=== PATIENT | female | born 1970 | race Caucasian/White ===

== ENCOUNTER 2021-04-20 08:04 | Outpatient (REF) | payer BC, SELFPAY ==
[2021-04-20 09:13] LABS: Estimated Average Glucose 108 mg/dL; Hemoglobin A1c % 5.4 %
[2021-04-20 09:22] LABS: Alanine Aminotransferase 14 U/L (0-31); Albumin Level 4.2 g/dL (3.5-5.0); Alkaline Phosphatase 58 U/L (39-117); Anion Gap 12 (12-20); Aspartate Amino Transferase 17 U/L (5-31); Bilirubin Total 1.7 mg/dL (0.0-1.0); Blood Urea Nitrogen 12 mg/dL (9-16); Calcium 9.6 mg/dL (8.4-10.2); Carbon Dioxide 27 mmol/L (22-29); Chloride 106 mmol/L (96-108); Cholesterol 199 mg/dL; Estimated Glomerular Filt Rate > 60; Glucose Fasting 101 mg/dL (60-99); HDL Cholesterol 64 mg/dL; LDL Cholesterol Calculated 119 mg/dl; Potassium 4.5 mmol/L (3.3-5.1); Sodium 140 mmol/L (135-145); Total Protein 6.7 g/dL (6.5-8.0); Triglycerides 80 mg/dL
[2021-04-20 09:32] LABS: TSH reflex Free T4 1.93 uIU/mL (0.32-4.0)
== END 2021-04-20 08:05 | disposition home or self-care (01) ==
LOC: HO.LAB 08:04
PROVIDERS: PCP Physician Assistant; Visit Provider Physician Assistant
DX: Z13.1 Encounter for screening for diabetes mellitus (principal); Z13.220 Encounter for screening for lipoid disorders; Z13.29 Encounter for screening for other suspected endocrine disorder
CPT/HCPCS: 36415; 80053; 80061; 83036; 84443

== ENCOUNTER → 2021-05-03 08:28 | Outpatient (BNVA) | payer BC, SELFPAY | PROVIDERS: PCP Physician Assistant; Referring Provider Physician Assistant; Visit Provider Physician Assistant ==

== ENCOUNTER 2021-06-14 09:20 | Day surgery (SDC) | payer BC, SELFPAY ==
[2021-06-07 15:10] VITALS: BMI 38.4
--- NOTE | 2021-06-10 14:45 | P.CONAN_ITS ---
Documented by User: Clarissa Driver NP 06/10/21 14:45 HPI - Anesthesia Eval Consult details Narrative: 50yo F for Colonoscopy PMFSH Active Problems Active Problems: All Active Problems (Updated 06/07/21 @ 14:53 by Mary Akins, MANDA) Moderate persistent asthma (Acute) Annual physical exam (Acute) Obese (Acute) Colon cancer screening (Acute) Cervical cancer screening (Acute) Screening for hypercholesterolemia (Acute) Screening for hypothyroidism (Acute) Screening for diabetes mellitus (DM) (Acute) Past Medical History Medical History Asthma Family History Family History Father Hairy cell leukemia Surgical History Surgical History (Updated 06/14/21 @ 09:30 by Umm Nunez RN) Previous section S/P cholecystectomy Social History Social History (Updated 05/03/21 @ 08:58 by Hemalatha Kaba PA-C) Household Members: Spouse and Children Housing: House Are you a primary respiratory care assistant to a significant other at home: No Do you presently have visiting nurse or other home services: No Alcohol intake: current Alcohol intake frequency: 3 or more drinks per day Alcohol type: wine Patient Tobacco Use Status: Never used Tobacco e-Cigarette/Vaping Use: Never Used Second Hand Smoke Exposure: No Use of substances other than those prescribed or required for medical reasons: No Have you been hit, kicked, punched, or otherwise hurt by someone within the past year? If so, by whom?: No Are you DNR?: No Advance Directives: No Advance Directives Information Provided: No Advance Directives on File: No Recently lost weight without trying: No Eating poorly because of decreased appetite: No Nutrition Risks: No Nutritional Risk Patient : No service: No Current occupational status: employed Current occupation: [employer] Meds Allergies Allergy/AdvReac Type Severity Reaction Status Date / Time No Known Allergies Allergy Verified 06/14/21 09:30 Exam Exam Date and Time: June 10, 2021 1445 Height,Weight and Vital Signs: Height 5 ft 4 in Weight 101.605 kg Assessment and Plan Assessment Anesthesia Assessment: Chart Reviewed Documented by User: Mackenzie Fajardo MD 06/14/21 09:38 [facility] Past Medical History Medical History Asthma Family History Family History Father Hairy cell leukemia Family history of problems with anesthesia: No Surgical History Surgical History (Updated 06/14/21 @ 09:30 by Umm Nunez RN) Previous section S/P cholecystectomy History of Problems with Anesthesia: No Social History Social History (Updated 05/03/21 @ 08:58 by Hemalatha Kaba PA-C) Household Members: Spouse and Children Housing: House Are you a primary respiratory care assistant to a significant other at home: No Do you presently have visiting nurse or other home services: No Alcohol intake: current Alcohol intake frequency: 3 or more drinks per day Alcohol type: wine Patient Tobacco Use Status: Never used Tobacco e-Cigarette/Vaping Use: Never Used Second Hand Smoke Exposure: No Use of substances other than those prescribed or required for medical reasons: No Have you been hit, kicked, punched, or otherwise hurt by someone within the past year? If so, by whom?: No Are you DNR?: No Advance Directives: No Advance Directives Information Provided: No Advance Directives on File: No Recently lost weight without trying: No Eating poorly because of decreased appetite: No Nutrition Risks: No Nutritional Risk Patient : No service: No Current occupational status: employed Current occupation: [employer] Meds Allergies Allergy/AdvReac Type Severity Reaction Status Date / Time No Known Allergies Allergy Verified 06/14/21 09:30 Exam Airway Mallampati Class: II (Caps laterally) TM Dist: >3cm Neck ROM: Full Heart: rrr Lungs: cta Assessment and Plan Assessment Anesthesia Assessment: Anesthesia Plan Discussed and Chart Reviewed Final Anesthetic Review Family History of Problems with Anesthesia: No History of Problems with Anesthesia: No NPO: Yes ASA Class: III Final Preanesthetic Review: No Changes in Pt Med Stat and Consent Obtained/Reviewed Patient Risk: Intermediate Procedure Risk: Intermediate Anesthetic Plan Anesthetic Plan: MAC: Disposition: Standard PACU
[2021-06-14 09:32] VITALS: BP 147/87; PULSE 89; RESP 16; TEMP 36.8; O2SAT 95
[2021-06-14] MEDS: Lactated Ringers 1,000 ML 100 ML IVCONT (09:44)
--- NOTE | 2021-06-14 09:48 | MHC.SHP ---
Pre-Procedural Eval Section A Date of Service: 06/14/21 The patient is an INPATIENT: No The History & Physical has been completed within 30 days and I have reviewed it.: No Section B Chief Complaint: screening Details of Present Illness: Colon cancer screening Relevant Family History (Specify if Yes): No Relevant Social History: None Present Medications: see Short Stay Collaborative assessment Medical History: Significant History (asthma) History of Previous Operations: Relevant previous surgery/procedure and date(s) (S/P cholecystectomy) Allergies: Allergies Allergy/AdvReac Type Severity Reaction Status Date / Time No Known Allergies Allergy Verified 06/14/21 09:30 Review of Systems Sugical H&P ROS: Negative: Constitution, Cardiovascular, Respiratory and Gastrointestinal Exam Surgical H&P Exam: Normal: Heart, Normal: Lungs, Normal: Extremities and Normal: Abdomen Plan Diagnosis/Plan: Unchanged I have reviewed the history and physical and performed a pertinent physical examination on my patient. No changes have occurred unless specified.
--- NOTE | 2021-06-14 09:55 | W.PM.OPN ---
Operative Note Operative Note Date of Service: 06/14/21 Narrative: Pre-op diagnosis:?Colon cancer screening Post-op diagnosis:?other (Diverticulosis, hemorrhoids) Procedure:? COLONOSCOPY TILL CECUM Consent: Indications for the procedure and potential complications of bleeding, perforation, reaction to medications and missed diagnosis were discussed with the patient and informed consent was obtained. Instrument: Olympus PCF H 190 L variable stiffness pediatric colonoscope Monitoring: Vital signs and clinical assessment, intermittent blood pressure monitoring, continuous EKG monitoring, Pulse oximetry and Carbon Dioxide monitoring were done throughout the procedure. Colon withdrawl time was 16 minutes. Procedure: The patient was placed in the left lateral decubitis position and pre-procedure medications were administered. After a digital rectal examination of the ano-rectum, the video colonoscope was inserted into the rectum and advanced through the colon to the cecum. The colonoscope was slowly withdrawn in a retrograde panoramic fashion and the colon mucosa was carefully examined including a retroflexed view of the rectum. Findings and interventions are described below. Procedure Difficulty: ? Colon was long and tortuous and there was recurrent loop formation - no manuvers were required Findings: Terminal Ileum: Not evaluated Cecum:? Normal Ascending Colon:? Normal Transverse Colon:? Normal Descending Colon:? Normal Sigmoid Colon:? Moderate diverticulosis Rectum:? Normal Ano-rectum:? Small internal hemorrhoids Colon preparation: Excellent ? Impression and Post Procedure Diagnosis: Colonoscopy Findings: No polyps were detected. Moderate diverticulosis seen in the sigmoid colon Small hemorrhoids on retroflexed exam. Plan: Patient has an appointment on 07/07/21 in the GI Clinic with SHARRI Cain to cancel. Repeat Colonoscopy in 10 years (earlier if pt has abdominal pain, change in bowel habits, anemia, rectal bleeding or new family hx of colon polyps or cancer). Above findings were reviewed with the patient and diverticulosis handout was given in the discharge area Surgeon:?Shira Rice MD Anesthesia:?MAC (Almita Jimenez CRNA) Was an Employment Appeals Examiner used for this Procedure?:?Yes Employment Appeals Examiner:?Price Flores Estimated blood loss (mL):?0 Pathology:?none sent Condition:?stable Disposition:?PACU
[2021-06-14 10:30] VITALS: BP 124/81; PULSE 97; RESP 21; TEMP 36.7; O2SAT 98
[2021-06-14 10:45] VITALS: BP 119/84; PULSE 87; RESP 18; TEMP 36.8; O2SAT 98
== END 2021-06-14 11:20 | disposition home or self-care (01) ==
PROVIDERS: PCP Physician Assistant; Visit Provider Internal Medicine Gastroenterology
PROC: 0DJD8ZZ Inspection of Lower Intestinal Tract, Via Natural or Artificial Opening Endoscopic (ICD-10-PCS; CPT 45378; principal; 2021-06-14 10:50)
DX: Z12.11 Encounter for screening for malignant neoplasm of colon (principal); K57.30 Diverticulosis of large intestine without perforation or abscess without bleeding; K64.8 Other hemorrhoids; J45.40 Moderate persistent asthma, uncomplicated; Z79.899 Other long term (current) drug therapy; Z90.49 Acquired absence of other specified parts of digestive tract
CPT/HCPCS: 45378

== ENCOUNTER 2021-09-01 13:36 | Outpatient (REF) | payer BC, SELFPAY ==
[2021-09-06 19:46] LABS: HPV mRNA E6/E7 rflx Not Detected (Not Detected)
== END 2021-09-01 13:37 | disposition home or self-care (01) ==
LOC: HO.LAB 13:36
PROVIDERS: PCP Physician Assistant; Visit Provider Advanced Practice Midwife
DX: Z01.419 Encounter for gynecological examination (general) (routine) without abnormal findings (principal); R32 Unspecified urinary incontinence
CPT/HCPCS: 87624; 88142

== ENCOUNTER 2021-09-11 07:58 | Outpatient (REF) | payer BC, SELFPAY ==
--- NOTE | ~2021-09-11 | MM_ITS ---
EXAMINATION: MM SCREENING DIGITAL BREAST TOMOSYNTHESIS, BILATERAL CLINICAL INFORMATION: Screening. Asymptomatic. The lifetime risk of breast cancer based on the Tyrer-Cuzick Model is 7%. COMPARISON: Outside mammography: 09/02/2019, 08/31/2018 ([facility]) TECHNIQUE: Digital breast tomosynthesis is performed in both the craniocaudal and mediolateral oblique views along with computer-aided detection (CAD). Synthesized 2D images are generated from the tomosynthesis. FINDINGS: There are scattered areas of fibroglandular density (ACR BI-RADS breast composition Category b). There are no significant masses, abnormal calcifications, or other abnormalities. Parenchymal pattern is similar to prior outside studies. There is no developing density or interval architectural abnormality. The axilla and skin contours are unremarkable. MM/MM tomosynthesis screening BI IMPRESSION: No mammographic evidence of malignancy. ASSESSMENT: BI-RADS 1: Negative RECOMMENDATION: Routine annual mammography screening. This patient's information was entered into a reminder system with a target due date for their next mammogram.
== END 2021-09-11 07:59 | disposition home or self-care (01) ==
LOC: HO.MAMMO 07:58
PROVIDERS: PCP Physician Assistant; Visit Provider Advanced Practice Midwife
DX: Z12.31 Encounter for screening mammogram for malignant neoplasm of breast (principal)
CPT/HCPCS: 77063; 77067

== ENCOUNTER 2021-10-05 10:16 | Outpatient (REF) | payer BC, SELFPAY | END 2021-10-05 10:17 | disposition home or self-care (01) | LOC: HO.LAB 10:16 | PROVIDERS: PCP Physician Assistant; Visit Provider Obstetrics & Gynecology | DX: N88.9 Noninflammatory disorder of cervix uteri, unspecified (principal) | CPT/HCPCS: 57454; 88305 ==

== ENCOUNTER → 2021-10-19 11:25 | Outpatient (BNVA) | payer BC, SELFPAY | PROVIDERS: Visit Provider Obstetrics & Gynecology | DX: N88.9 Noninflammatory disorder of cervix uteri, unspecified (principal) | CPT/HCPCS: Q3014 ==

== ENCOUNTER → 2022-09-06 08:02 | Outpatient (BNVA) | payer BC, SELFPAY | PROVIDERS: PCP Physician Assistant; Visit Provider Advanced Practice Midwife | DX: Z13.89 Encounter for screening for other disorder (principal) ==

== ENCOUNTER 2022-09-26 15:01 | Outpatient (REF) | payer BC, SELFPAY ==
[2022-09-27 12:52] LABS: Influenza A PCR NEGATIVE (Negative); Influenza B PCR NEGATIVE (Negative); Resp Syncy Virus RNA Qual PCR NEGATIVE (Negative); SARS COV2 PCR INHOUSE NEGATIVE (Negative)
== END 2022-09-26 15:02 | disposition home or self-care (01) ==
LOC: HO.LAB 15:01
PROVIDERS: Visit Provider Nurse Practitioner Family
DX: Z20.822 Contact with and (suspected) exposure to COVID-19 (principal); R09.89 Other specified symptoms and signs involving the circulatory and respiratory systems
CPT/HCPCS: 0241U

== ENCOUNTER 2022-10-05 08:11 | Outpatient (REF) | payer BC, SELFPAY ==
--- NOTE | ~2022-10-05 | MM_ITS ---
EXAMINATION: MM SCREENING DIGITAL BREAST TOMOSYNTHESIS, BILATERAL CLINICAL INFORMATION: Screening. Asymptomatic. The lifetime risk of breast cancer based on the Tyrer-Cuzick Model is 11%. COMPARISON: Mammography: 09/11/2021; outside mammography 09/02/2019, 08/31/2018 ([facility]) TECHNIQUE: Digital breast tomosynthesis is performed in both the craniocaudal and mediolateral oblique views along with computer-aided detection (CAD). Synthesized 2D images are generated from the tomosynthesis. FINDINGS: There are scattered areas of fibroglandular density (ACR BI-RADS breast composition Category b). There are no significant masses, abnormal calcifications, or other abnormalities. No architectural abnormality or developing density or significant change from prior studies. MM/MM tomosynthesis screening BI IMPRESSION: No mammographic evidence of malignancy. ASSESSMENT: BI-RADS 1: Negative RECOMMENDATION: Routine annual mammography screening. This patient's information was entered into a reminder system with a target due date for their next mammogram.
== END 2022-10-05 08:12 | disposition home or self-care (01) ==
LOC: HO.MAMMO 08:11
PROVIDERS: Visit Provider Advanced Practice Midwife
DX: Z12.31 Encounter for screening mammogram for malignant neoplasm of breast (principal)
CPT/HCPCS: 77063; 77067

== ENCOUNTER 2023-07-18 10:02 | Outpatient (AMB) | payer BC, SELFPAY ==
[2023-07-18 10:08] VITALS: BP 116/76; PULSE 81; O2SAT 95; BMI 35.0
--- NOTE | 2023-07-18 10:08 | A.OFFPC_ITS ---
Vital Signs 07/18/23 10:08 Height 5 ft 4 in Weight 204 lb 2 oz BMI 35.0 BP 116/76 Blood Pressure Location Lt brachial Position Sitting Pulse 81 Pulse Source Pulse Oximeter Pulse Oximetry (%) 95 Oxygen Delivery Method Room Air Intake Visit Reasons: Right Ear Infection Intake Note: pt is here for a right ear infection, pt went to urgent care last week and she was given amoxicillin 875mg. She also been experiencing neck and shoulder pain. Hospice Home Health Aide Required: No Accompanied by: Self / Same As Patient Allergies No Known Allergies Allergy (Verified 07/18/23 10:08) Tobacco use date assessed: 07/18/23 Dental Screening Dental Screen Date: 07/18/23 Did you have a dental visit in the last 12 months?: Yes Did you have a dental problem in the last 6 months where you did not have access to dental care?: No Was dental information given to patient?: Patient has dentist HPI HPI Comments History of Present Illness Details 52-year-old female past medical history significant for asthma and obesity. Patient of Jorden Prieto presents today for Right ear infection. Right ear pain since last week, patient returns went to urgent care for this and was prescribed amoxicillin. Patient presents today for ongoing right ear pain. Denies any fever, chills, cough shortness of breath. Examination patient continues to have right otitis media upon completion of amoxicillin, will send in Augmentin for this. Patient also reports has right shoulder pain for which she had years ago, states she has done physical therapy in the past with improvement of this. Previous right shoulder x-ray shows arthritis patient ad vise can take ibuprofen as needed for pain and offered referral to physical therapy. Patient declines physical therapy referral at this time COUNT INCLUDES THE [facility] Medical History Asthma Obesity (BMI 30-39.9) Surgical History Previous section S/P cholecystectomy Family History Father Hairy cell leukemia Social History Household Members: Spouse and Children Housing: House Are you a primary memory care director to a significant other at home: No Do you presently have visiting nurse or other home services: No Alcohol intake: current Alcohol intake frequency: a few times a week Alcohol type: wine Patient Tobacco Use Status: Never used Tobacco e-Cigarette/Vaping Use: Never Used Second Hand Smoke Exposure: No service: No Current occupational status: employed Current occupation: [employer] Sexual orientation: Straight/Heterosexual Gender identity: Female Cognitive needs: No Hearing needs: No Vision needs: No Female Reproductive History Menstrual Age of Menarche: 13 Questionnaire PHQ-9 Over the last 2 weeks, how often have you been bothered by any of the following problems? 1. Little interest or pleasure in doing things: not at all 2. Feeling down, depressed, or hopeless: not at all 3. Trouble falling or staying asleep, or sleeping too much: not at all 4. Feeling tired or having little energy: not at all 5. Poor appetite or overeating: not at all 6. Feeling bad about yourself - or that you are a failure or have let yourself or your family down: not at all 7. Trouble concentrating on things, such as reading the newspaper or watching television: not at all 8. Moving or speaking so slowly that other people could have noticed. Or the o pposite - being so fidgety or restless that you have been moving around a lot more than usual: not at all 9. Thoughts that you would be better off or of hurting yourself in some way: not at all Total score: 0 15406 - PHQ-9 Billing: Yes Source: Developed by Drs. Arnulfo Oquendo, Mariela Wilkinson, Kamar Oglesby and colleagues, with an educational tala from [employer]. Thrive Questionnaire Date Thrive assessed: 07/18/23 I am a: Patient What is your living situation today?: I have a steady place to live Within the past 12 months, did the food you bought not last and you didn't have the money to get more?: Never true Within the past 12 months, did you worry whether your food would run out before you got money to buy more?: Never true Do you have trouble paying for medicines?: No Do you have trouble getting transportation to medical appointments?: No Do you have trouble paying your heating and electricity bill?: No Do you have trouble taking care of your child, family member or friend?: No Do you have trouble with day-to-day activities such as bathing, preparing meals, shopping, managing finances, etc.?: No Are you currently unemployed and looking for a job?: No Are you interested in more education?: No Please select the resources that you would like help with: None Currently or been in a relationship where the following occur: no concerns reported AUDIT C Alcohol Use Questionnaire (AUDIT-C) 1. How often do you have a drink containing alcohol?: 2-3 times a week 2. How many drinks containing alcohol do you have on a typical day when you are drinking?: 1 or 2 3. How often do you have six or more drinks on one occasion?: Never Total Score: 3 DUANE-7 AMB Questionnaire DUANE-7 Date DUANE - 7 assessed: 07/18/23 Feeling nervous, anxious, or on edge: 0 = Not at all Not being able to stop or control worryin = Not at all Worrying too much about different things: 0 = Not at all Trouble relaxin = Not at all Being so restless that it is hard to sit still: 0 = Not at all Becoming easily annoyed or irritable: 0 = Not at all Feeling afraid as if something awful might happen: 0 = Not at all Total DUANE-7 score (0-4 normal; 5-9 mild; 10-14 moderate; 15-21 severe): 0 Source: Developed by Drs. Arnulfo Oquendo, Mariela Wilkinson, Kamar Oglesby and colleagues, with an educational tala from [employer]. DUANE-7 Assessment Billing DUANE-7 Assessment Tool: DUANE-7 Assessment 03715 Review of Systems Const Denies chills, Denies fatigue, Denies fever(s) and Denies poor appetite Eyes Denies no additional complaints ENT Reports Normal hearing present and Reports otalgia (right ear) Card Denies chest pain, Denies syncope, Denies rapid heart rate and Denies dyspnea Resp Denies cough and Denies dyspnea GI Denies change in stool character, Denies constipation, Denies diarrhea, Denies nausea and Denies vomiting Denies urinary frequency, Denies dysuria and Denies urinary urgency Musc Reports arthralgias (right shoulder pain ) Neuro Reports Normal hearing present, Denies confusion and Denies syncope Psych Denies confusion Endo Denies fatigue Physical exam (Primary Care) Vital Signs: Last Vital Signs Pulse 81 07/18/23 10:08 BP 116/76 07/18/23 10:08 Pulse Ox 95 07/18/23 10:08 Oxygen Delivery Method Room Air 07/18/23 10:08 BMI result Body Mass Index 35.0 Tobacco/Smoking Status: Tobacco use Status Tobacco use date assessed 07/18/23 07/18/23 10:20 Patient Tobacco Use Status Never used Tobacco 07/18/23 10:20 e-Cigarette/Vaping Use Never Used 07/18/23 10:20 PHQ-9: PHQ-9 Score PHQ-9: Total score 0 07/18/23 10:27 Thrive Assessment: Date of Thrive Assessment Date Thrive assessed 07/18/23 07/18/23 10:20 Currently or been in a relationship where the following occur: no concerns reported Const General: No confusion Orientation/consciousness: No confusion Neuro General: No confusion Cranial nerves: Yes Normal hearing present Office Procedures Flu Questionnaire Does the patient have a severe egg allergy?: No Does the patient have severe life threatening allergies?: No Does the patient have a fever or illness today?: No Has the patient ever had Guillain-Dawson Syndrome?: No Has the patient ever had any past reaction to a flu shot?: No Immunizations flu vacc [id number] 6mos up(PF) 60 mcg(15 mcgx4)/0.5 mL IM syringe Performing Provider: KENIA Mayberry Performing Location: [facility] Administered by: Tiki Faria on 07/18/23 10:34 Dose Route Admin Location Dispensed Lot Number Expiration Date [facility] Commercial [employer] Portfolio Manager 0.5 mL IM Right Deltoid 0.5 mL [id number] 02/04/24 [id number] [employer] VIS Given Date VIS Provided VIS Publication Date 07/18/23 Single Vaccine 21 Eligibility Eligibility Date Funding Source Not [facility] Eligible 07/18/23 Private Assessment and Plan Assessment & Plan (1) Right otitis media: Code(s): H66.91 - Otitis media, unspecified, right ear Plan: Augmentin sent to patient's pharmacy. Signs and symptoms reviewed with patient when to follow-up. (2) Right shoulder pain: Code(s): M25.511 - Pain in right shoulder Plan: Ibuprofen 600 mg sent to patient's pharmacy. Patient advised to take medication with food to prevent GI upset Offered referral to physical therapy however patient would like to hold off at this time. Plan keep scheduled follow up with pcp or follow up sooner if needed Orders: Orders Influenza [id number] Immunization Today Z23 - Encounter for immunization Medications: New amoxicillin-pot clavulanate 875-125 mg 1 tab PO BID 20 tabs 0RF H66.91 - Otitis media, unspecified, right ear ibuprofen 600 mg PO Q8H PRN 30 tabs 0RF pain Discontinued amoxicillin Discontinued Reason: Patient Completed Course 875 mg PO Q12H 10 days 20 tabs 0RF Coding Level of Care Code Est Pt Level 3 (61886) Diagnoses Right otitis media H66.91 Right shoulder pain M25.511 Additional Codes DUANE-7 Assessment Billing - DUANE-7 Assessment Tool: DUANE-7 Assessment 62483 ([id number])
== END 2023-07-18 10:37 | disposition home or self-care (01) ==
PROVIDERS: PCP Physician Assistant; Visit Provider Nurse Practitioner Family
DX: H66.91 Otitis media, unspecified, right ear (principal); M25.511 Pain in right shoulder; Z23 Encounter for immunization
CPT/HCPCS: 90471; 90686; 99213

== ENCOUNTER 2023-08-05 10:08 | Outpatient (AMB) | payer BC, SELFPAY ==
--- OUTSIDE RECORDS SUMMARY | 2023-08-05 10:10 | XMS_ITS | Patient Health Record ---
Author Name Unknown Organization [address] Address [address] [facility] [address] [place] [address] Care Team Providers Care Fraternity Adviser Name Role Phone KEELEYCASA BORJAEN Unavailable [phone] ALLERGIES No Known Allergies REASON FOR REFERRAL Diagnosis 1 Obesity (E66.9) Referred Provider Specialty Unknown Referral Priority Routine MEDICATIONS Medication SIG (Take, Route, Frequency, Duration) Notes Start Date End Date Status Wegovy 2.4 MG/0.75ML 2.4 mg Subcutaneous weekly for 30 days 06/02/2023 Active Pulmicort Flexhaler 90 MCG/ACT 1 puff Inhalation Twice a day Active Serevent Diskus 50 MCG/ACT 1 puff Inhalation Twice a day Active SOCIAL HISTORY Sex Assigned At : Social History Observation Description Sex Assigned At Unknown PROBLEMS Problem Type ICD Code Onset Dates Problem Status W/U Status Risk SNOMED Code Notes Problem Other obesity due to excess calories (E66.09) Active confirmed 037948929 Problem Body mass index [BMI] 37.0-37.9, adult (Z68.37) Active confirmed 635718331 VITAL SIGNS Heart Rate 89 /min 06/02/2023 waist- 45 in Oximetry 99 % 06/02/2023 waist- 45 in Blood pressure diastolic 84 mm Hg 06/02/[address]- 45 in Height 62 in 06/02/2023 waist- 45 in Blood pressure systolic 130 mm Hg 06/02/2023 wais t- 45 in Weight 206 lbs 06/02/2023 waist- 45 in BMI 37.67 kg/m2 06/02/2023 waist- 45 in Encounters Encounter Location Date Provider Diagnosis [address] [facility] [address] [place] [address] 06/07/2023 MANISHA BLUM [address] [facility] [address] [place] [address] 06/02/2023 MANISHA BLUM Chronic obstructive asthma J44.89 ; Other obesity due to excess calories E66.09 and Body mass index [BMI] 37.0-37.9, adult Z68.37 [facility] [address] [place] [address] 07/26/2023 MANISHA BLUM Chronic obstructive asthma J44.89 ASSESSMENTS Encounter Date Diagnosis Assessment Notes Treatment Notes Treatment Clinical Notes 06/02/2023 Other obesity due to excess calories (ICD-10 - E66.09) 06/02/2023 Chronic obstructive asthma (ICD-10 - J44.89) 07/26/2023 Chronic obstructive asthma (ICD-10 - J44.89) 06/02/2023 Body mass index [BMI] 37.0-37.9, adult (ICD-10 - Z68.37) PLAN OF TREATMENT Next Appt Details Provider Name:MANISHA BLUM, 08/14/2023 02:45:00 PM, [address] [place] [address], [id number], Insurance Providers Payer Name Payer Address Payer Phone Subscriber Number Group Number Insured Name Patient Relationship to Insured Coverage Start Date Coverage End Date [facility] [address] [place] [address] [phone] [id number] Gabriela Hoskins Self - patient is the insured 3 MEDICAL (GENERAL) HISTORY Surgical History Surgery Date(Month/Year) C section 02/28/2007 cholecystectomy
--- NOTE | 2023-08-05 13:54 | MHC.OFFWIV ---
Intake Vital Signs 08/05/23 13:56 Height 5 ft 4 in Weight 208 lb BMI 35.7 BP 116/86 Blood Pressure Location Lt brachial Position Sitting Pulse 79 Pulse Source Pulse Oximeter Temp 97.7 F Temp Source Oral Pulse Oximetry (%) 98 Oxygen Delivery Method Room Air Intake Visit Reasons: EST/right ear pain ([phone]) Intake Note: Pt is here today for a re-current Rt ear pain Patient Tobacco Use Status: Never used Tobacco Allergies No Known Allergies Allergy (Verified 08/05/23 13:54) Do you need a note to return to daycare/school/sports/work: No HPI HPI Comments History of Present Illness Details This is a 52-year-old female presenting for evaluation of right ear pain that she has had since July 11, 2023. Patient has been treated with antibiotic therapy 3 times over the past twice with Augmentin and 1 with amoxicillin. Patient states that she continues to have pain in her right ear. Patient also states that she is now wearing her mouth guard and she has bruxism and is not always compliant with her mouth guard nightly. [facility] Medical History Obesity (BMI 30-39.9) Asthma Surgical History Previous section S/P cholecystectomy Family History Father Hairy cell leukemia Social History Household Members: Spouse and Children Housing: House Are you a primary home health aide caregiver to a significant other at home: No Do you presently have visiting nurse or other home services: No Alcohol intake: current Alcohol intake frequency: a few times a week Alcohol type: wine Patient Tobacco Use Status: Never used Tobacco e-Cigarette/Vaping Use: Never Used Second Hand Smoke Exposure: No service: No Current occupational status: employed Current occupation: [employer] Sexual orientation: Straight/Heterosexual Gender identity: Female Cognitive needs: No Hearing needs: No Vision needs: No Female Reproductive History Menstrual Age of Menarche: 13 Review of Systems Const All systems reviewed & are unremarkable except as noted in HPI and below Reports no additional complaints Eyes Reports no additional complaints ENT Reports no additional complaints and Reports other (ears feel blocked bilaterally) Neuro Reports no additional complaints Endo Reports no additional complaints Physical Exam Vital Signs: Last Vital Signs Temp 97.7 F 08/05/23 13:56 Pulse 79 08/05/23 13:56 BP 116/86 08/05/23 13:56 Pulse Ox 98 08/05/23 13:56 Oxygen Delivery Method Room Air 08/05/23 13:56 BMI result Body Mass Index 35.7 Const General: cooperative, healthy appearing, comfortable and no acute distress Nutritional Appearance: average body habitus Orientation/consciousness: patient oriented x3 Limitations: no limitations HEENT Head: Yes normal to inspection Ears: hearing grossly normal bilaterally, external ears normal, TM's normal bilaterally and EAC's normal General nose exam: Normal external nose present Face and sinus: Yes normal facial exam Mouth: Normal oral and palatal mucosa present Throat: Yes posterior oropharynx normal Neuro General: patient oriented x3 Psych Appearance: grossly normal Mental Status: mental status grossly normal Insight: Good insight present (Psych) Judgement: Good judgement present (Psych) Assessment & Plan Assessment & Plan (1) Otalgia, right ear: Code(s): H92.01 - Otalgia, right ear Plan: Patient will take ibuprofen 600 mg every 6-8 hours and follow up with her dentist to rule out dental origins of her right ear pain. There is no clinical evidence of an otitis media of the right ear. Coding Level of Care Code New Pt Level 3 (00399) Diagnoses Otalgia, right ear H92.01 Time Spent (min) 35
[2023-08-05 13:56] VITALS: BP 116/86; PULSE 79; TEMP 36.5; O2SAT 98; BMI 35.7
== END 2023-08-05 14:56 | disposition home or self-care (01) ==
PROVIDERS: PCP Physician Assistant; Visit Provider Physician Assistant
DX: H92.01 Otalgia, right ear (principal)
CPT/HCPCS: 99203

== ENCOUNTER 2023-08-21 11:09 | Outpatient (REF) | payer BC, SELFPAY ==
[2023-08-21 11:45] LABS: Estimated Average Glucose 100 mg/dL; Hemoglobin A1c % 5.1 % (<6.0)
[2023-08-21 12:03] LABS: Alanine Aminotransferase 12 U/L (0-31); Alkaline Phosphatase 58 U/L (39-117); Anion Gap 10 (12-20); Aspartate Amino Transferase 14 U/L (5-31); Bilirubin Total 1.2 mg/dL (0.0-1.0); Blood Urea Nitrogen 10 mg/dL (9-16); Calcium 9.2 mg/dL (8.4-10.2); Carbon Dioxide 26 mmol/L (22-29); Chloride 108 mmol/L (96-108); Estimated Glomerular Filt Rate > 60; Glucose Fasting 95 mg/dL (60-99); Hematocrit 40.2 % (37.0-47.0); Hemoglobin 13.2 g/dl (12.0-16.0); Mean Corpuscular HGB Conc 32.8 g/dl (31.0-35.0); Mean Corpuscular Hemoglobin 29.7 pg (27.0-33.0); Mean Corpuscular Volume 90.5 fL (80.0-98.0); Mean Platelet Volume 10.3 fL (9.4-12.3); Platelet Count 284 X10*3/uL (160-400); Potassium 4.3 mmol/L (3.3-5.1); Red Blood Count 4.44 X10*6/uL (4.20-5.50); Red Cell Distribution Width 12.8 % (11.0-16.0); Sodium 140 mmol/L (135-145); Total Protein 7.1 g/dL (6.5-8.0); White Blood Count 6.8 X10*3/uL (4.8-10.8)
== END 2023-08-21 11:10 | disposition home or self-care (01) ==
LOC: HO.LAB 11:09
PROVIDERS: PCP Physician Assistant; Visit Provider Physician Assistant
DX: Z13.1 Encounter for screening for diabetes mellitus (principal); R73.09 Other abnormal glucose; J45.40 Moderate persistent asthma, uncomplicated
CPT/HCPCS: 36415; 80053; 83036; 85027

== ENCOUNTER 2023-08-23 08:24 | Outpatient (AMB) | payer BC, SELFPAY ==
[2023-08-23 08:42] VITALS: BP 120/78; PULSE 88; O2SAT 96; BMI 35.2
--- NOTE | 2023-08-23 08:42 | MHC.PC.OV ---
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 Accompanied by: Self / Same As Patient Allergies No Known Allergies Allergy (Verified 08/23/23 08:48) Medication List - Last Reconciled 08/23/23 by Keo Hilario PA-C albuterol sulfate 90 mcg/actuation (Ventolin HFA) 2 puffs inhalation Q4-6H PRN 30 days budesonide 180 mcg/actuation (Pulmicort Flexhaler) 1 inh inhalation BID 30 days fluticasone propionate 50 mcg/actuation sprays intranasal salmeterol (Serevent Diskus) 1 inh inhalation BID 30 days semaglutide (weight loss) (Wegovy) mg subcut Tobacco use date assessed: 08/23/23 Dental Screening Dental Screen Date: 08/23/23 Did you have a dental visit in the last 12 months?: Yes Did you have a dental problem in the last 6 months where you did not have access to dental care?: No Was dental information given to patient?: Patient has dentist HPI Physical Exam HPI Details Gabriela is a 53 y /o F her today for a PE visit. Patient has a pmhx significant for asthma, anxiety, Obesity. .. Anxiety: Anxiety has been controlled without SSRI therapy. Continues nonpharmacological techniques on controlling her anxiety. .. Asthma: Reports she is well controlled on her inhalers. Only seldomly using her rescure inhaler. She has been using 2 different maintenance inhalers which has been helpful. She is wondering if she can use a combo maintenance inhaler for ease of dosing . Obesity: Patient continues to suffer with obesity today's 35, she is being seen by weight loss clinic at [facility] and has started on Wegovy.. She does note losing lot of weight on monjouro. .. Vaccine: UTD with tdap and pneumonia. UTD COVID vacc ,up-to-date with flu vaccine RETAIL OFFICE ASSOCIATE: has upcoming appointment with medical office supervisor.. Mammogram: Done mammogram in October of 2022 BI-RADS 1 Colonoscopy: Done at age 50, normal repeat 10 years [facility] Medical History Obesity (BMI 30-39.9) Asthma Surgical History Previous section S/P cholecystectomy Family History Father Hairy cell leukemia Social History Household Members: Spouse and Children Housing: House Are you a primary md do resident urgent care to a significant other at home: No Do you presently have visiting nurse or other home services: No Alcohol intake: current Alcohol intake frequency: a few times a week Alcohol type: wine Patient Tobacco Use Status: Never used Tobacco e-Cigarette/Vaping Use: Never Used Second Hand Smoke Exposure: No service: No Current occupational status: employed Current occupation: [employer] Sexual orientation: Straight/Heterosexual Gender identity: Female Cognitive needs: No Hearing needs: No Vision needs: No Female Reproductive History Menstrual Age of Menarche: 13 Questionnaire PHQ-9 Over the last 2 weeks, how often have you been bothered by any of the following problems? 1. Little interest or pleasure in doing things: not at all 2. Feeling down, depressed, or hopeless: not at all 3. Trouble falling or staying asleep, or sleeping too much: not at all 4. Feeling tired or having little energy: not at all 5. Poor appetite or overeating: not at all 6. Feeling bad about yourself - or that you are a failure or have let yourself or your family down: not at all 7. Trouble concentrating on things, such as reading the newspaper or watching television: not at all 8. Moving or speaking so slowly that other people could have noticed. Or the opposite - being so fidgety or restless that you have been moving around a lot more than usual: not at all 9. Thoughts that you would be better off or of hurting yourself in some way: not at all Total score: 0 Depression Screening Interpretation: Negative Depression Screening Done: Yes 92833 - PHQ-9 Billing: Yes Source: Developed by Drs. Arnulfo Oquendo, Mariela Wilkinson, Kamar Oglesby and colleagues, with an educational tala from [employer]. Thrive Questionnaire Date Thrive assessed: 08/23/23 I am a: Patient What is your living situation today?: I have a steady place to live Within the past 12 months, did the food you bought not last and you didn't have the money to get more?: Never true Within the past 12 months, did you worry whether your food would run out before you got money to buy more?: Never true Do you have trouble paying for medicines?: No Do you have trouble getting transportation to medical appointments?: No Do you have trouble paying your heating and electricity bill?: No Do you have trouble taking care of your child, family member or friend?: No Do you have trouble with day-to-day activities such as bathing, preparing meals, shopping, managing finances, etc.?: No Are you currently unemployed and looking for a job?: No Are you interested in more education?: No Please select the resources that you would like help with: None AUDIT C Alcohol Use Questionnaire (AUDIT-C) 1. How often do you have a drink containing alcohol?: 2-3 times a week 2. How many drinks containing alcohol do you have on a typical day when you are drinking?: 1 or 2 3. How often do you have six or more drinks on one occasion?: Never Total Score: 3 DUANE-7 AMB Questionnaire DUANE-7 Date DUANE - 7 assessed: 08/23/23 Feeling nervous, anxious, or on edge: 0 = Not at all Not being able to stop or control worryin = Not at all Worrying too much about different things: 0 = Not at all Trouble relaxin = Not at all Being so restless that it is hard to sit still: 0 = Not at all Becoming easily annoyed or irritable: 0 = Not at all Feeling afraid as if something awful might happen: 0 = Not at all Total DUANE-7 score (0-4 normal; 5-9 mild; 10-14 moderate; 15-21 severe): 0 Source: Developed by Drs. Arnulfo Oquendo, Mariela Wilkinson, Kamar Oglesby and colleagues, with an educational tala from [employer]. DUANE-7 Assessment Billing DUANE-7 Assessment Tool: DUANE-7 Assessment 91786 ACT Questionnaire In the past 4 weeks, how much of the time did your asthma keep you from getting as much done at work, school or at home?: None of the time During the past 4 weeks, how often have you had shortness of breath?: Not at all During the past 4 weeks, how often did your asthma symptoms wake you up at night or earlier than usual in the morning?: Not at all During the past 4 weeks, how often have you had to use your rescue inhaler or nebulizer medication?: Once a week or less How would you rate your asthma control during the past 4 weeks?: Well controlled ACT Interpretation: Negative Score: 23 Review of Systems Const Denies body aches, Denies chills, Denies excessive sweating, Denies fatigue, Denies fever(s) and Denies headache(s) Eyes Denies blurry vision ENT Denies dysphagia, Denies vertigo, Denies dizziness, Denies headache(s), Denies hearing loss and Denies tinnitus Card Denies chest pain, Denies chest pain with activity, Denies syncope, Denies irregular heart rhythm and Denies dyspnea Resp Denies chest congestion, Denies cough, Denies hemoptysis, Denies dyspnea and Denies wheezing GI Denies abdominal pain, Denies melena, Denies hematochezia, Denies coffee ground emesis, Denies dysphagia, Denies diarrhea, Denies nausea and Denies vomiting Denies urinary frequency, Denies dysuria, Denies urinary hesitancy and Denies urinary urgency Musc Denies arthralgias, Denies limited range of motion, Denies muscle cramps and Denies muscle weakness Skin/Breast Denies rash and Denies skin ulcer Neuro Denies Abnormal speech present, Denies confusion, Denies vertigo, Denies dizziness, Denies syncope, Denies headache(s), Denies memory loss and Denies seizure-like activity Psych Denies anxiety, Denies confusion, Denies depression, Denies memory loss, Denies panic attacks and Denies paranoia Endo Denies excessive sweating, Denies fatigue, Denies flushing, Denies polydipsia and Denies polyuria Aller/Immun Denies wheezing Physical exam (Primary Care) Vital Signs: Oxygen Delivery Method Room Air 08/23/23 08:42 BMI result Body Mass Index 35.2 BMI Assessment/Plan discussion: High Tobacco/Smoking Status: Tobacco use Status Tobacco use date assessed 07/18/23 07/18/23 10:20 Patient Tobacco Use Status Never used Tobacco 08/05/23 13:58 e-Cigarette/Vaping Use Never Used 07/18/23 10:20 Depression Screening Interpretation: Negative Thrive Assessment: Date of Thrive Assessment Date Thrive assessed 07/18/23 07/18/23 10:20 Const Other: Obese General: cooperative, comfortable, no acute distress, alert and awake; No confusion Orientation/consciousness: oriented to person, oriented to place, patient oriented x3 and No confusion HENMT Head: Yes normocephalic Ears: external ears normal and TM's normal bilaterally Face and sinus: No sinus tenderness Mouth: Normal oral and palatal mucosa present and tongue normal Teeth and gingiva: dentition normal and gingiva normal Throat: Yes posterior oropharynx normal, Yes tonsils normal and Yes uvula midline Eyes Conjunctivae: conjunctivae normal Sclerae: sclerae normal Pupils: Equal, round and reactive pupils present EOM: EOMs intact bilaterally Direct Ophthalmoscopy: No no photophobia Neck Neck: Yes no lymphadenopathy, No tender and Yes no JVD Thyroid: Thyroid normal Carotids: no bruits Chest Chest palpation & inspection: no tenderness Resp Effort & Inspection: normal respiratory effort, no audible wheezes, not labored and no stridor Auscultation: no crackles, no rales, no rhonchi and no wheezes Cardio Jugular venous distension: no JVD Rate: regular rate, not bradycardic and not tachycardic Rhythm: regular rhythm Bruits: no carotid bruits Peripheral pulses: Peripheral pulses 2+ throughout GI Inspection: Yes normal to inspection, No abdominal wall ecchymosis and No visible herniation Palpation (GI): Soft to palpation, nontender, no guarding, not rigid and No hepatosplenomegaly present Auscultation: normoactive bowel sounds General: Yes no CVA tenderness Back/Spine/Pelvis Back: no CVA tenderness and No back tenderness Cervical Spine: cervical ROM normal Thoracic/Lumbar Spine: thoracic and lumbar spine normal to inspection, straight leg raise negative bilaterally, No thoraco-lumbar ROM limited and No lumbar spinal tenderness Skin Lesions: no lesions Rashes: no rashes Wounds: no wounds Neuro General: oriented to person, oriented to place, patient oriented x3, CN's II-XI intact bilaterally and No confusion Cranial nerves: Yes Equal, round and reactive pupils present and Yes Normal accommodation reflex present Cognition (Neuro): normal cognition Speech: No Abnormal speech present Gait exam (Neuro): Normal gait present Motor exam (neuro): 5/5 motor strength present throughout Extrem Right upper extremity: full ROM; no cyanosis Left upper extremity: full ROM; no cyanosis Right lower extremity: no edema Left lower extremity: no edema Psych Appearance: grossly normal Mental Status: mental status grossly normal Affect: normal affect Attitude: cooperative Thought process: Normal thought process present Assessment and Plan Assessment & Plan (1) Annual physical exam: Code(s): Z00.00 - Encounter for general adult medical examination without abnormal findings (2) Obese: Code(s): E66.9 - Obesity, unspecified Qualifiers: Body mass index: BMI 35.0-35.9 Obesity classification: adult class 2 (BMI 35 - 39.9) Obesity type: due to excess calories Serious obesity comorbidity presence: without serious comorbidity Qualified Code(s): E66.09 - Other obesity due to excess calories; Z68.35 - Body mass index [BMI] 35.0-35.9, adult Plan: Patient does understand her BMI is over 35 whom will continue to follow-up weight management program [facility]. She is currently Wegovy. She plans on being more physically active to help lose weight as well. (3) Moderate persistent asthma: Comment: well controlled , no admissions. pcp- monitors Pre ANESTHESIA CONSULT Code(s): J45.40 - Moderate persistent asthma, uncomplicated Qualifiers: Asthma complication type: uncomplicated Qualified Code(s): J45.40 - Moderate persistent asthma, uncomplicated Plan: Patient's asthma has been fairly well controlled with current maintenance inhaler. He she will like to try a combo maintenance inhaler for ease of dosing. She otherwise denies any recent asthma exacerbations or nighttime awakenings with asthma symptoms. Medications: New fluticasone propion-salmeterol 250-50 mcg/dose (Wixela Inhub) 1 inh inhalation BID 30 days 60 ea 3RF J45.40 - Moderate persistent asthma, uncomplicated On Hold budesonide 180 mcg/actuation (Pulmicort Flexhaler) Hold Comment: Doctor's Order 1 inh inhalation BID 30 days 1 ea 6RF J45.40 - Moderate persistent asthma, uncomplicated salmeterol (Serevent Diskus) Hold Comment: Doctor's Order 1 inh inhalation BID 30 days 60 ea 6RF J45.40 - Moderate persistent asthma, uncomplicated Coding Level of Care Code Est Pt Prev Care 40-64y(06622) Diagnoses Annual physical exam Z00.00 Class 2 obesity due to excess calories without serious comorbidity with body mass index (BMI) of 35.0 to 35.9 in adult E66.09; Z68.35 Body mass index: BMI 35.0-35.9 Obesity classification: adult class 2 (BMI 35 - 39.9) Obesity type: due to excess calories Serious obesity comorbidity presence: without serious comorbidity Moderate persistent asthma without complication J45.40 Asthma complication type: uncomplicated Additional Codes DUANE-7 Assessment Billing - DUANE-7 Assessment Tool: DUANE-7 Assessment 02855 ([id number])
== END 2023-08-23 09:18 | disposition home or self-care (01) ==
PROVIDERS: PCP Physician Assistant; Visit Provider Physician Assistant
DX: Z00.00 Encounter for general adult medical examination without abnormal findings (principal); E66.09 Other obesity due to excess calories; Z68.35 Body mass index [BMI] 35.0-35.9, adult; J45.40 Moderate persistent asthma, uncomplicated
CPT/HCPCS: 99396

== ENCOUNTER 2023-09-27 07:46 | Outpatient (AMB) | payer BC, SELFPAY ==
--- NOTE | 2023-09-27 07:53 | MHC.OFFVIS ---
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 She is doing well with no concerns. Regular menses, spacing some and one episode of spotting this month, mid cycle. Attempting to eat a healthy diet with calcium and vitamin D and stays active with walking. Currently not sexually active, w/. Denies any vaginal dryness or irritation. Last pap smear; 2021. Last mammogram; 2022. Colonoscopy is UTD. Denies any family history of breast, ovarian or colon cancer. [facility] Medical History Obesity (BMI 30-39.9) Asthma Surgical History Previous section S/P cholecystectomy Family History Father Hairy cell leukemia Social History Household Members: Spouse and Children Housing: House Are you a primary property caretaker to a significant other at home: No Do you presently have visiting nurse or other home services: No Alcohol intake: current Alcohol intake frequency: a few times a week Alcohol type: wine Patient Tobacco Use Status: Never used Tobacco e-Cigarette/Vaping Use: Never Used Second Hand Smoke Exposure: No service: No Current occupational status: employed Current occupation: [employer] Sexual orientation: Straight/Heterosexual Gender identity: Female Cognitive needs: No Hearing needs: No Vision needs: No Female Reproductive History Menstrual Age of Menarche: 13 Duration of menses: 3-5 days Date of last menstrual period: 08/29/23 Total pregnancies: 4 Full term: 2 Number of Living Children: 2 Date of last pap smear: 09/01/21 (neg pap and hpv) Date of Mammogram: 10/05/22 (Birad 1) Review of Systems Const All systems reviewed & are unremarkable except as noted in HPI and below Reports as per HPI Eyes Reports no additional complaints ENT Reports no additional complaints Card Reports no additional complaints Resp Reports no additional complaints GI Reports as per HPI and Reports no additional complaints Reports as per HPI Musc Reports no additional complaints Skin/Breast Reports as per HPI Neuro Reports no additional complaints Psych Reports no additional complaints Endo Reports no additional complaints Gerard/Lymph Reports no additional complaints Aller/Immun Reports no additional complaints Physical Exam Vital Signs: Last Vital Signs BP 110/78 09/27/23 07:54 BMI result Body Mass Index 34.7 Const General: cooperative, healthy appearing, no acute distress, well developed and alert Orientation/consciousness: patient oriented x3 HEENT Head: Yes normal to inspection Eyes General: appearance normal, both eyes and all related structures Neck Neck: Yes normal visual inspection Thyroid: Thyroid normal Chest Chest palpation & inspection: normal inspection of the chest and other (no puckering, dimpling, peau de orange, retraction, discharge, masses) Breast/axilla inspection: normal inspection of the breasts Breast/axilla palpation: normal palpation of the breasts Resp Effort & Inspection: normal respiratory effort GI Inspection: Yes normal to inspection Palpation (GI): Soft to palpation Rectal Exam - Female: deferred General: Yes bladder normal to palpation External Female Exam: normal external appearance and normal appearance of the urethra Speculum Exam - Vagina: normal appearance of the vagina, normal palpation and normal vaginal discharge Speculum Exam - Cervix: normal appearance of the cervix and normal palpation Bimanual exam- vagina & uterus: normal bimanual exam, normal palpation, uterine size normal, bladder normal to palpation, normal palpation and non-tender Bimanual Exam- Adnexa, other: no masses Skin General skin exam: no rashes or lesions noted Rashes: no rashes Neuro General: patient oriented x3 Cognition (Neuro): normal cognition Extrem General: Yes normal to inspection Psych Attitude: cooperative Thought process: Normal thought process present Assessment & Plan Assessment & Plan (1) Encounter for well woman exam with routine gynecological exam: Code(s): Z01.419 - Encounter for gynecological examination (general) (routine) without abnormal findings Plan Discussed: Current recommendations for pap smears per ASCCP guidelines. Breast awareness, periodic self breast exams and yearly mammogram. Maintain a healthy lifestyle, well balanced diet including Calcium 1,200 mg and Vitamin D 600 IU daily, and routine exercise. Monitor menstrual cycles, report any unscheduled bleeding, bleeding episodes <21 days apart or heavy/prolonged menstrual bleeding. Call the office for a follow up for any concerns. Contact the office with any postmenopausal bleeding. Patient verbalizes understanding and agrees to the plan of care. She was given opportunity to ask questions and all questions were answered to the best of my ability. 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 This note is constructed using voice recognition software. While every effort has been made to ensure accuracy, toy mechanic errors may have been included. Coding Level of Care Code Est Pt Prev Care 40-64y(47906) Diagnoses Encounter for well woman exam with routine gynecological exam Z01.419
[2023-09-27 07:54] VITALS: BP 110/78; BMI 34.7
== END 2023-09-27 08:31 | disposition home or self-care (01) ==
PROVIDERS: PCP Physician Assistant; Visit Provider Advanced Practice Midwife
DX: Z01.419 Encounter for gynecological examination (general) (routine) without abnormal findings (principal)
CPT/HCPCS: 99396

== ENCOUNTER → 2023-09-27 07:46 | Outpatient (BNVA) | payer BC, SELFPAY | PROVIDERS: PCP Physician Assistant; Visit Provider Advanced Practice Midwife ==

== ENCOUNTER 2023-10-11 08:07 | Outpatient (REF) | payer BC, SELFPAY ==
--- NOTE | ~2023-10-11 | MM_ITS ---
EXAMINATION: MM SCREENING DIGITAL BREAST TOMOSYNTHESIS, BILATERAL CLINICAL INFORMATION: Screening. Asymptomatic. COMPARISON: Mammography: This study is compared with prior exams dating back to 2021. TECHNIQUE: Digital breast tomosynthesis is performed in both the craniocaudal and mediolateral oblique views along with computer-aided detection (CAD). Synthesized 2D images are generated from the tomosynthesis. FINDINGS: The breasts are almost entirely fatty (ACR BI-RADS breast composition Category a). There are no significant masses, abnormal calcifications, or other abnormalities. MM/MM tomosynthesis screening BI IMPRESSION: No mammographic evidence of malignancy. ASSESSMENT: BI-RADS BI-RADS 1 - Negative RECOMMENDATION: Routine annual mammography screening. 1 year F/U This examination should not preclude the clinical evaluation of a suspicious palpable abnormality. This patient's information was entered into a reminder system with a target due date for their next mammogram.
== END 2023-10-11 08:08 | disposition home or self-care (01) ==
LOC: HO.MAMMO 08:07
PROVIDERS: PCP Physician Assistant; Visit Provider Physician Assistant
DX: Z12.31 Encounter for screening mammogram for malignant neoplasm of breast (principal)
CPT/HCPCS: 77063; 77067

== ENCOUNTER → 2023-10-11 08:15 | Outpatient (BNV) | payer BC, SELFPAY | PROVIDERS: PCP Physician Assistant; Visit Provider Radiology Diagnostic Radiology | DX: Z12.31 Encounter for screening mammogram for malignant neoplasm of breast (principal) | CPT/HCPCS: 77063; 77067 ==

== ENCOUNTER → 2023-10-18 07:58 | Outpatient (REF) | payer BC, SELFPAY ==
--- NOTE | 2023-10-18 08:00 | HM_ITS ---
Conclusion: 1. Patient was monitored for total period of 3 days 2. Baseline was normal sinus rhythm with average heart of 75 beats per minute 3. No significant pauses noted 4. Rare PVCs noted 5. Patient reported multiple events of fluttering or thumping in the chest, only 1 could be correlated on the monitor correlating with sinus rhythm MTDD
== END ==
LOC: HO.CARD 07:58
PROVIDERS: PCP Physician Assistant; Visit Provider Physician Assistant
DX: R00.2 Palpitations (principal)
CPT/HCPCS: 93242

== ENCOUNTER → 2023-10-18 08:00 | Outpatient (BNV) | payer BC, SELFPAY | PROVIDERS: PCP Physician Assistant; Visit Provider Internal Medicine Cardiovascular Disease | DX: R00.2 Palpitations (principal) | CPT/HCPCS: 93244 ==

== ENCOUNTER 2023-12-18 09:29 | Outpatient (AMB) | payer BC, SELFPAY ==
--- NOTE | 2023-12-18 09:35 | A.OFFVIS_ITS ---
Vital Signs 12/18/23 09:36 Height 5 ft 4 in Weight 205 lb 0.478 oz BMI 35.2 BP 120/68 Blood Pressure Location Lt brachial Position Sitting Pulse 74 Pulse Source Monitor Pulse Oximetry (%) 99 Oxygen Delivery Method Room Air Intake Visit Reasons: NPV/[place]/Palpitations Allergies fluticasone [From Wixela Inhub] Adverse Reaction (Intermediate, Verified 09/27/23 07:54) Hoarseness of voice salmeterol [From Wixela Inhub] Adverse Reaction (Intermediate, Verified 09/27/23 07:54) Hoarseness of voice Medication List - Last Reconciled 12/18/23 by Lyle Navarro MD albuterol sulfate 90 mcg/actuation (Ventolin HFA) 2 puffs inhalation Q4-6H PRN 30 days budesonide 180 mcg/actuation (Pulmicort Flexhaler) 1 inh inhalation BID 30 days fluticasone propionate 50 mcg/actuation sprays intranasal metoprolol succinate ER 25 mg PO DAILY 30 days salmeterol (Serevent Diskus) 1 inh inhalation BID 30 days semaglutide (weight loss) (Wegovy) mg subcut tirzepatide (weight loss) (Zepbound) mg subcut HPI Comments Details: Gabriela is here for consultation regarding palpitations. She states that she has been noticing heart fluttering type sensations and underwent Holter for that. That shows rare PVCs and PACs. No known cardiac history. No history of any coronary artery disease or myocardial infarction or cardiomyopathy. With activity, she can feel some shortness of breath. Sometimes chest tightness as well. She is here for further evaluation. She has longstanding history of asthma, well controlled. For palpitations, has taken some beta-blockers. Partial relief. [facility] Medical History Obesity (BMI 30-39.9) Asthma Surgical History Previous section S/P cholecystectomy Family History Father Hairy cell leukemia Social History Household Members: Spouse and Children Housing: House Are you a primary care support representative to a significant other at home: No Do you presently have visiting nurse or other home services: No Alcohol intake: current Alcohol intake frequency: a few times a week Alcohol type: wine Patient Tobacco Use Status: Never used Tobacco e-Cigarette/Vaping Use: Never Used Second Hand Smoke Exposure: No service: No Current occupational status: employed Current occupation: [employer] Sexual orientation: Straight/Heterosexual Gender identity: Female Cognitive needs: No Hearing needs: No Vision needs: No Female Reproductive History Menstrual Age of Menarche: 13 Review of Systems Const Denies weakness ENT Denies dizziness Card Denies chest pain, Denies chest pain with activity, Denies syncope, Denies rapid heart rate, Denies pedal edema, Denies edema, Denies leg edema, Denies lightheadedness, Denies palpitations, Denies dyspnea, Denies dyspnea on exertion and Denies orthopnea Resp Denies cough, Denies dyspnea and Denies dyspnea on exertion GI Denies hematochezia and Denies change in stool character Musc Denies abnormal gait, Denies muscle cramps, Denies muscle weakness, Denies numbness, Denies radiating pain into limb and Denies tingling Neuro Denies abnormal gait, Denies dizziness, Denies syncope, Denies numbness, Denies tingling and Denies weakness Endo Denies palpitations Physical Exam Vital Signs: Last Vital Signs Pulse 74 12/18/23 09:36 BP 120/68 12/18/23 09:36 Pulse Ox 99 12/18/23 09:36 Oxygen Delivery Method Room Air 12/18/23 09:36 BMI result Body Mass Index 35.2 Const General: comfortable and no acute distress Orientation/consciousness: patient oriented x3 HEENT Other: Unremarkable Head: Yes normal to inspection Neck Neck: Yes normal visual inspection Chest Chest palpation & inspection: normal inspection of the chest Resp Auscultation: clear to auscultation bilaterally Cardio Palpation: normal PMI Heart sounds: S1 normal heart sound present, S2 normal heart sound present, no gallops, no murmurs and no rubs GI Palpation (GI): Soft to palpation Back/Spine/Pelvis Other: unremarkable Skin General skin exam: no rashes or lesions noted Neuro General: patient oriented x3 Extrem General: Yes normal to inspection Psych Mental Status: mental status grossly normal Office Procedures EKG Details: EKG with sinus rhythm at 74/Min; nonspecific ST-T changes; [place] [id number], Complete Assessment & Plan Assessment & Plan (1) PVC (premature ventricular contraction): Code(s): I49.3 - Ventricular premature depolarization Category: Medical (2) Heart palpitations: Code(s): R00.2 - Palpitations Category: Medical (3) Shortness of breath: Code(s): R06.02 - Shortness of breath Category: Medical (4) Chest tightness: Code(s): R07.89 - Other chest pain Category: Medical Plan In the recent Holter, underlying rhythm is sinus. Very rare supraventricular and ventricular ectopy. We discussed about these in great detail. Avoid stimulants. Okay to use beta-blockers as necessary. We will also check a home sleep study. With regard to complaints of shortness of breath/chest tightness, obtain further workup with an echocardiogram as well as coronary CTA. Unclear if her symptoms are just from weight and asthma versus cardiac/multifactorial. Follow-up after the above. Orders: Orders CA echo transthoracic complete Today I49.3 - Ventricular premature depolarization CT Cardiac Coronary Angio Today I25.10 - Atherosclerotic heart disease of [place] coronary artery without angina pectoris RT home sleep study Today G47.33 - Obstructive sleep apnea (adult) (pediatric) Coding Level of Care Code New Pt Level 4 (23485) Diagnoses PVC (premature ventricular contraction) I49.3 Heart palpitations R00.2 Shortness of breath R06.02 Chest tightness R07.89 CPT Codes EKG - CPT: 42378-[id number], Complete ([id number])
[2023-12-18 09:36] VITALS: BP 120/68; PULSE 74; O2SAT 99; BMI 35.2
== END 2023-12-18 10:16 | disposition home or self-care (01) ==
PROVIDERS: PCP Physician Assistant; Visit Provider Internal Medicine
DX: I49.3 Ventricular premature depolarization (principal); R00.2 Palpitations; R06.02 Shortness of breath; R07.89 Other chest pain
CPT/HCPCS: 93010; 99204

== ENCOUNTER → 2023-12-18 09:29 | Outpatient (BNVA) | payer BC, SELFPAY | PROVIDERS: PCP Physician Assistant; Visit Provider Internal Medicine | DX: I49.3 Ventricular premature depolarization (principal); R00.2 Palpitations; R06.02 Shortness of breath; R07.89 Other chest pain | CPT/HCPCS: 93005 ==

== ENCOUNTER → 2024-01-04 12:58 | Outpatient (REF) | payer BC, SELFPAY ==
--- NOTE | 2024-01-04 13:01 | CA_ITS ---
Transthoracic Echocardiogram Patient (Last, First, Middle): Gabriela Hoskins M Gender: Female Date of : 1970 Age: 53 Procedure Date: 01/04/2024 Procedure Type: Transthoracic Echocardiogram Location: OP Height: 162.56 cm Weight: 92.53 kg BSA: 1.97 m2 Heart Rate: 66 bpm BP: 118 / 60 mmHg Nicu Rn: TO Referring MD: Lyle Navarro MD Symptoms: I49.3 - Ventricular premature depolarization Study Quality: Adequate ECG Rhythm: Sinus Conclusions: - The left ventricular systolic function is normal. The calculated ejection fraction is 62% by biplane method. - No obvious valvular pathology seen on this study. Findings Left Ventricle Normal left ventricular cavity size. There is normal left ventricular wall thickness. The left ventricular systolic function is normal. The calculated ejection fraction is 62% by biplane method. There is no evidence of regional wall motion abnormalities. Diastolic function is normal for age. LV peak GLS -21.6%. Right Ventricle Normal right ventricular cavity size and systolic function. Atria Both atria are normal in size. Aortic Valve There is a normal trileaflet aortic valve. There is no aortic valve stenosis. There is no aortic valve regurgitation. Mitral Valve The mitral valve appears normal. There is no mitral valve regurgitation. There is no mitral valve stenosis. Pulmonic Valve The pulmonic valve is likely normal. Tricuspid Valve Normal tricuspid valve structure. There is trace tricuspid valve regurgitation. There is no evidence of pulmonary hypertension. Great Vessels The asc aorta and aortic arch are normal in size. Venous The inferior vena cava is normal in size and collapses greater than 50% with inspiration. Pericardium/Pleural There is a trivial pericardial effusion. Prior Study Comparison No prior study available for comparison. Recommendations, Care & Conclusions No obvious valvular pathology seen on this study. Measurements 2D Linear Measurements IVSd: 0.81 0.6-0.9/0.6-1.0 cm LVIDd: 4.86 3.9-5.3/4.2-5.9 cm LVIDd Index: 2.47 2.4-3.2/2.2-3.1 cm/m2 LVIDs: 3.31 2.0-3.6 cm LVPWd: 0.70 0.7-1.1 cm LA Diam: 3.90 2.7-3.8/3.0-4.0 cm LAIDs Index: 1.98 1.5-2.3 cm/m2 LV Mass: 149.68 67-162/88-224 g LV Mass Index: 75.98 43-95/49-115 g/m2 LVOT Diam: 2.00 3.0+(-)1.3 cm 2D Systolic Function EF 4C: 64.20 >55% EF 2C: 59.90 >55% EF BiP: 62.00 >55% Mitral Valve MV Pk E: 0.84 MV PK A: 0.75 MV Decel Time: 192.00 E/A: 1.10 E'Lateral: 8.70 E'Medial: 7.07 E/E' Med: 11.80 E/E' Lat: 9.60 PHT: 56.00 MVA PHT: 3.93 Decel [place]: 4.36 Aortic Valve AoV Pk Víctor: 1.39 AoV Mn Víctor: 1.01 AoV VTI: 0.33 AoV Pk Grad: 8.00 Aov Mn Grad: 4.00 NICOLE Cont.VTI: 2.12 LVOT LVOT Pk Víctor: 0.90 LVOT Mn Víctor: 0.59 LVOT VTI: 0.22 LVOT Pk Grad: 3.00 LVOT Mn Grad: 2.00 LVOT Diam: 2.00 LVOT Area: 3.14 Diastolic Function MV Pk E: 0.84 MV Pk A: 0.75 E/A: 1.10 E'Medial: 7.07 E/E' Med: 11.80 E' Laterial: 8.70 E/E' Lat: 9.60 Right Ventricle TAPSE (mm): 23.50 TVS' Víctor: 11.20 Tricuspid Valve TR Pk Víctor: 2.13 TR Pk Grad: 18.00 RA Press: 3.00 RVSP: 21.00 Great Vessels Aorta Sinus of Valsalva: 2.82 2.0-3.5 cm Ao Asc: 3.20 2.1-3.4 cm Ao Arch: 3.00 Updated in Other Vendor System with Status of Final Lyle Navarro MD electronically signed on 01/06/2024 10:21:43 AM with status of Final
== END ==
LOC: HO.CARD 12:58
PROVIDERS: PCP Physician Assistant; Visit Provider Internal Medicine
DX: I49.3 Ventricular premature depolarization (principal)
CPT/HCPCS: 93306; 93356

== ENCOUNTER → 2024-01-04 13:01 | Outpatient (BNV) | payer BC, SELFPAY | PROVIDERS: PCP Physician Assistant; Visit Provider Internal Medicine | DX: I49.3 Ventricular premature depolarization (principal) | CPT/HCPCS: 93306; 93356 ==

== ENCOUNTER → 2024-01-22 14:56 | Outpatient (REF) | payer BC, SELFPAY | LOC: HO.SL 14:56 | PROVIDERS: PCP Physician Assistant; Visit Provider Internal Medicine | DX: Z13.89 Encounter for screening for other disorder (principal) ==

== ENCOUNTER 2024-04-04 07:37 | Outpatient (REF) | payer BC, SELFPAY ==
[2024-04-04 09:02] LABS: Anion Gap 13 (12-20); Blood Urea Nitrogen 15 mg/dL (9-16); Calcium 9.5 mg/dL (8.4-10.2); Carbon Dioxide 23 mmol/L (22-29); Chloride 108 mmol/L (96-108); Estimated Glomerular Filt Rate > 60; Glucose Random 89 mg/dL (60-115); Potassium 4.4 mmol/L (3.3-5.1); Sodium 140 mmol/L (135-145)
== END 2024-04-04 07:38 | disposition home or self-care (01) ==
LOC: HO.LAB 07:37
PROVIDERS: PCP Physician Assistant; Visit Provider Internal Medicine
DX: R06.02 Shortness of breath (principal); R00.2 Palpitations; R07.89 Other chest pain
CPT/HCPCS: 36415; 80048

== ENCOUNTER 2024-04-30 15:20 | Outpatient (AMB) | payer BC, SELFPAY ==
[2024-04-30 15:41] VITALS: BP 110/70; PULSE 82; BMI 34.7
--- NOTE | 2024-04-30 15:41 | MHC.OFFVIS ---
Vital Signs 04/30/24 15:41 Height 5 ft 4 in Weight 202 lb 6.15 oz BMI 34.7 BP 110/70 Blood Pressure Location Lt brachial Position Sitting Pulse 82 Pulse Source Pulse Oximeter Intake Visit Reasons: F/U Equal Opportunity Director Required: No Allergies fluticasone [From Wixela Inhub] Adverse Reaction (Intermediate, Verified 04/30/24 15:43) Hoarseness of voice salmeterol [From Wixela Inhub] Adverse Reaction (Intermediate, Verified 04/30/24 15:43) Hoarseness of voice Medication List - Last Reconciled 04/30/24 by Della Salter NP-C albuterol sulfate 90 mcg/actuation (Ventolin HFA) 2 puffs inhalation Q4-6H PRN 30 days budesonide 180 mcg/actuation (Pulmicort Flexhaler) 1 inh inhalation BID 30 days metoprolol succinate ER 25 mg PO DAILY 30 days salmeterol (Serevent Diskus) 1 inh inhalation BID 30 days tirzepatide (weight loss) (Zepbound) mg subcut HPI HPI F/U: Details: Gabriela is a 53-year-old female with past medical history of obesity, asthma who underwent cardiac evaluation for heart palpitations and intermittent chest tightness. She had a CTA of the coronaries, Holter monitor and echocardiogram and now presents for follow-up. Sleep study was ordered and done however no data was collected. The test will need to be repeated. 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 She describes it to me more like a pounding heartbeat. She wears an Apple watch which tells her her heart rate. Most of the time when she has symptoms her heart rate is in the 70s to 80s. She rarely has a heart rate over 100. She will feel some tightness in her chest at times which could be related to asthma. She has no chest discomfort brought on by physical activity. No concerning shortness of breath, PND, orthopnea or edema. Good activity tolerance but no routine exercise. No dizziness, presyncope, syncope. She takes meds as directed. [facility] Medical History Obesity (BMI 30-39.9) Asthma Surgical History Previous section S/P cholecystectomy Family History Father Hairy cell leukemia Social History Household Members: Spouse and Children Housing: House Are you a primary administrator health care facility to a significant other at home: No Do you presently have visiting nurse or other home services: No Alcohol intake: current Alcohol intake frequency: a few times a week Alcohol type: wine Patient Tobacco Use Status: Never used Tobacco e-Cigarette/Vaping Use: Never Used Second Hand Smoke Exposure: No service: No Current occupational status: employed Current occupation: [employer] Sexual orientation: Straight/Heterosexual Gender identity: Female Cognitive needs: No Hearing needs: No Vision needs: No Female Reproductive History Menstrual Age of Menarche: 13 Review of Systems Const All systems reviewed & are unremarkable except as noted in HPI and below ENT Denies dizziness Card Details: pounding heart - like fluttering Denies chest pain, Denies chest pain at rest, Denies chest pain with activity, Denies rapid heart rate, Denies pedal edema, Denies edema, Denies leg edema, Denies lightheadedness, Denies palpitations, Denies dyspnea, Denies dyspnea on exertion and Denies orthopnea Resp Denies cough, Denies dyspnea and Denies dyspnea on exertion GI Denies hematochezia and Denies change in stool character Musc Denies abnormal gait, Denies limited range of motion, Denies muscle cramps, Denies muscle weakness, Denies numbness, Denies radiating pain into limb, Denies stiffness and Denies tingling Neuro Denies abnormal gait, Denies dizziness, Denies numbness and Denies tingling Endo Denies palpitations Physical Exam Vital Signs: Last Vital Signs Pulse 82 04/30/24 15:41 BP 110/70 04/30/24 15:41 BMI result Body Mass Index 34.7 Const General: cooperative, healthy appearing, comfortable and no acute distress Orientation/consciousness: patient oriented x3 Neck Neck: Yes normal visual inspection Resp Effort & Inspection: normal respiratory effort Auscultation: clear to auscultation bilaterally, no rales, no rhonchi and no wheezes Cardio Rate: regular rate Rhythm: regular rhythm Heart sounds: S1 normal heart sound present, S2 normal heart sound present, no murmurs and no rubs Neuro General: patient oriented x3 Extrem General: Yes normal to inspection, No no pedal edema and No calf tenderness Psych Appearance: grossly normal Mental Status: mental status grossly normal Speech and movement: Normal speech and movement present Assessment & Plan Assessment & Plan (1) Heart palpitations: Code(s): R00.2 - Palpitations Category: Medical Plan: Report of heart palpitations which can feel like a flutter however when she describe it to me it is more like a strong pounding heartbeat. She is not having issues with tachycardia. She wears an Apple watch which tells her her heart rate. She does admit to having high stress and anxiety. She drinks 1 caffeinated beverage per day. Echocardiogram done 01/04/2024 showed EF 62%, no valve abnormalities no regional wall motion abnormalities. Holter monitor was done on 10/22/2023 for 3 days showing sinus rhythm, average rate 75, rare PVCs. Pulse is very regular on examination today. Offered reassurance that no concerning arrhythmias identified. Limit caffeine only 1 per day. Remain well hydrated, get adequate rest. Discussed stress medication activities. Will arrange for follow-up in 3-4 months to re-evaluate symptoms. (2) PVC (premature ventricular contraction): Code(s): I49.3 - Ventricular premature depolarization Category: Medical Plan: As above (3) Chest tightness: Code(s): R07.89 - Other chest pain Category: Medical Plan: Report of vague chest tightness, nonexertional. She does have a history of asthma. She underwent a CTA of the coronaries on 04/11/2024 which was negative for coronary artery disease. There was incidental finding of a left lower lobe lung nodule. Copy of the report given to patient. Message sent to her PCP with the recommendation based on the report of a repeat CT scan of the chest 6-12 months. Informed her that her chest tightness is noncardiac. Plan Time spent on chart review, documentation, interview,, assessment Coding Level of Care Code Est Pt Level 3 (37205) Diagnoses Heart palpitations R00.2 PVC (premature ventricular contraction) I49.3 Chest tightness R07.89 Time Spent (min) 24
== END 2024-04-30 16:27 | disposition home or self-care (01) ==
PROVIDERS: PCP Physician Assistant; Visit Provider Nurse Practitioner Family
DX: R00.2 Palpitations (principal); I49.3 Ventricular premature depolarization; R07.89 Other chest pain
CPT/HCPCS: 99213

== ENCOUNTER → 2024-04-30 15:20 | Outpatient (BNVA) | payer BC, SELFPAY | PROVIDERS: PCP Physician Assistant; Visit Provider Nurse Practitioner Family ==

== ENCOUNTER → 2024-06-13 07:53 | Outpatient (REF) | payer BC, SELFPAY | LOC: HO.SL 07:53 | PROVIDERS: PCP Physician Assistant; Visit Provider Internal Medicine | DX: G47.33 Obstructive sleep apnea (adult) (pediatric) (principal) | CPT/HCPCS: 95806 ==

== ENCOUNTER → 2024-06-13 08:14 | Outpatient (BNV) | payer BC, SELFPAY | PROVIDERS: PCP Physician Assistant; Visit Provider Internal Medicine | DX: G47.33 Obstructive sleep apnea (adult) (pediatric) (principal) | CPT/HCPCS: 95806 ==

== ENCOUNTER 2024-08-22 15:16 | Outpatient (AMB) | payer BC, SELFPAY ==
[2024-08-22 15:17] VITALS: BP 114/72; PULSE 78; BMI 33.7
--- NOTE | 2024-08-22 15:17 | MHC.OFFVIS ---
Vital Signs 08/22/24 15:17 Height 5 ft 4 in Weight 196 lb 3.382 oz BMI 33.7 BP 114/72 Blood Pressure Location Lt brachial Position Sitting Pulse 78 Pulse Source Pulse Oximeter Intake Visit Reasons: 3+ mth f/up [place]bin Winder Required: No Allergies fluticasone [From Wixela Inhub] Adverse Reaction (Intermediate, Verified 08/22/24 15:20) Hoarseness of voice salmeterol [From Wixela Inhub] Adverse Reaction (Intermediate, Verified 08/22/24 15:20) Hoarseness of voice Medication List - Last Reconciled 08/22/24 by Della Salter, [employer]-C albuterol sulfate 90 mcg/actuation (Ventolin HFA) 2 puffs inhalation Q4-6H PRN 30 days budesonide 180 mcg/actuation (Pulmicort Flexhaler) 1 inh inhalation BID 30 days metoprolol succinate ER 25 mg PO DAILY 30 days salmeterol (Serevent Diskus) 1 inh inhalation BID 30 days tirzepatide (weight loss) (Zepbound) mg subcut HPI HPI 3+ mth f/up: Details: Gabriela is a 54-year-old female with past medical history of obesity, asthma who underwent cardiac evaluation for heart palpitations and intermittent chest tightness without significant findings. She now presents for follow-up. Today she reports that she continues to have heart palpitations. She notices her symptoms are worse when she is at work. 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 When she is on school break or doing physical activity she does not notice the heart palpitations. She stopped drinking wine which she feels has helped. She wears an Apple watch which tells her her heart rate averages 75 beats per minute. She rarely has a heart rate over 100. She has not had recent issues with chest discomfort at rest or with activity. No concerning shortness of breath, PND, orthopnea or edema. No dizziness, presyncope, syncope. She takes meds as directed. [facility] Medical History Obesity (BMI 30-39.9) Asthma Surgical History Previous section S/P cholecystectomy Family History Father Hairy cell leukemia Social History Household Members: Spouse and Children Housing: House Are you a primary home care music therapist to a significant other at home: No Do you presently have visiting nurse or other home services: No Alcohol intake: current Alcohol intake frequency: a few times a week Alcohol type: wine Patient Tobacco Use Status: Never used Tobacco e-Cigarette/Vaping Use: Never Used Second Hand Smoke Exposure: No service: No Current occupational status: employed Current occupation: [employer] Sexual orientation: Straight/Heterosexual Gender identity: Female Cognitive needs: No Hearing needs: No Vision needs: No Female Reproductive History Menstrual Age of Menarche: 13 Review of Systems Const All systems reviewed & are unremarkable except as noted in HPI and below ENT Denies dizziness Card Details: palpitations Denies chest pain, Denies chest pain at rest, Denies chest pain with activity, Denies rapid heart rate, Denies pedal edema, Denies edema, Denies leg edema, Denies lightheadedness, Denies palpitations, Denies dyspnea, Denies dyspnea on exertion and Denies orthopnea Resp Denies cough, Denies dyspnea and Denies dyspnea on exertion GI Denies hematochezia and Denies change in stool character Musc Denies abnormal gait, Denies limited range of motion, Denies muscle cramps, Denies muscle weakness, Denies numbness, Denies radiating pain into limb, Denies stiffness and Denies tingling Neuro Denies abnormal gait, Denies dizziness, Denies numbness and Denies tingling Endo Denies palpitations Physical Exam Vital Signs: Last Vital Signs Pulse 78 08/22/24 15:17 BP 114/72 08/22/24 15:17 BMI result Body Mass Index 33.7 Const General: cooperative, healthy appearing, comfortable and no acute distress Orientation/consciousness: patient oriented x3 Neck Neck: Yes normal visual inspection Resp Effort & Inspection: normal respiratory effort Auscultation: clear to auscultation bilaterally, no rales, no rhonchi and no wheezes Cardio Rate: regular rate Rhythm: regular rhythm Heart sounds: S1 normal heart sound present, S2 normal heart sound present, no murmurs and no rubs Neuro General: patient oriented x3 Extrem General: Yes normal to inspection, No no pedal edema and No calf tenderness Psych Appearance: grossly normal Mental Status: mental status grossly normal Speech and movement: Normal speech and movement present Assessment & Plan Assessment & Plan (1) Heart palpitations: Code(s): R00.2 - Palpitations Category: Medical Plan: Report of heart palpitations which can feel like a flutter however when she describe it to me it is more like a strong pounding heartbeat. She is not having issues with tachycardia. She wears an Apple watch which tells her her heart rate. She does admit to having high stress and anxiety. Echocardiogram done 01/04/2024 showed EF 62%, no valve abnormalities no regional wall motion abnormalities. Holter monitor was done on 10/22/2023 for 3 days showing sinus rhythm, average rate 75, rare PVCs. Today she reports that she has been having less palpitations recently. She cut down her caffeine intake. She stopped drinking wine for the new year. She had tried metoprolol and did not feel that it was helping but she is willing to retry it. Her Pulse is very regular on examination today. Offered reassurance that no concerning arrhythmias been identified and that her symptoms are most likely related to extrasystoles, PVCs. Informed her that PVCs are benign in the setting of normal EF. Remain well hydrated, get adequate rest. Discussed stress medication activities. Will arrange for cardiology follow-up p.r.n.. She is agreeable to this plan. (2) PVC (premature ventricular contraction): Code(s): I49.3 - Ventricular premature depolarization Category: Medical Plan: As above (3) Chest tightness: Code(s): R07.89 - Other chest pain Category: Medical Plan: Prior Report of vague chest tightness, nonexertional. She does have a history of asthma. She underwent a CTA of the coronaries on 04/11/2024 which was negative for coronary artery disease. There was incidental finding of a left lower lobe lung nodule. Copy of the report had been given to patient. She tells me that she has the repeat CT scan in the near future. She no longer has chest tightness. Reviewed that her symptom was noncardiac. Plan Time spent on chart review, documentation, interview,, assessment Coding Level of Care Code Est Pt Level 3 (57352) Complex EM visit Add On G2211 Diagnoses Heart palpitations R00.2 PVC (premature ventricular contraction) I49.3 Chest tightness R07.89 Time Spent (min) 24
== END 2024-08-22 15:38 | disposition home or self-care (01) ==
PROVIDERS: PCP Physician Assistant; Visit Provider Nurse Practitioner Family
DX: R00.2 Palpitations (principal); I49.3 Ventricular premature depolarization; R07.89 Other chest pain
CPT/HCPCS: 99213

== ENCOUNTER → 2024-08-22 15:16 | Outpatient (BNVA) | payer BC, SELFPAY | PROVIDERS: PCP Physician Assistant; Visit Provider Nurse Practitioner Family ==

== ENCOUNTER 2024-08-27 08:01 | Outpatient (AMB) | payer BC, SELFPAY ==
--- NOTE | 2024-08-27 08:17 | MHC.PC.OV ---
Vital Signs 08/27/24 08:18 Height 5 ft 4 in Weight 195 lb 2 oz BMI 33.5 BP 122/70 Blood Pressure Location Lt brachial Position Sitting Pulse 91 Pulse Source Pulse Oximeter Temp 96.7 F L Temp Source Skin Pulse Oximetry (%) 96 Oxygen Delivery Method Room Air Intake Visit Reasons: Annual exam Intake Note: Patient is here today for a physical. Fitness Coach Required: No Wic Site Coordinator: Not Required per policy Accompanied by: Self / Same As Patient Allergies fluticasone [From [facility]] Adverse Reaction (Intermediate, Verified 08/27/24 08:23) Hoarseness of voice salmeterol [From [facility]] Adverse Reaction (Intermediate, Verified 08/27/24 08:23) Hoarseness of voice Medication List - Last Reconciled 08/27/24 by Keo Hilario PA-C albuterol sulfate 90 mcg/actuation (Ventolin HFA) 2 puffs inhalation Q4-6H PRN 30 days budesonide 180 mcg/actuation (Pulmicort Flexhaler) 1 inh inhalation BID 30 days metoprolol succinate ER 25 mg PO DAILY 30 days salmeterol (Serevent Diskus) 1 inh inhalation BID 30 days tirzepatide (weight loss) (Zepbound) mg subcut Tobacco use date assessed: 08/27/24 Dental Screening Dental Screen Date: 08/27/24 Did you have a dental visit in the last 12 months?: Yes Did you have a dental problem in the last 6 months where you did not have access to dental care?: No Was dental information given to patient?: Patient has dentist HPI Annual exam HPI Details Gabriela is a 54y /o F her today for a PE visit. Patient has a pmhx significant for asthma, anxiety, Obesity. .. Anxiety: Anxiety has been controlled without SSRI therapy. Continues nonpharmacological techniques on controlling her anxiety. .. Asthma: Reports she is well controlled on her inhalers. Only seldomly using her rescure inhaler. She has been using 2 different maintenance inhalers which has been helpful. She is wondering if she can use a combo maintenance inhaler for ease of dosing Has a left Pulmonary nodule that will be followed with CT surveillance. . Class 1 Obesity: Patient continues to suffer with obesity today's 33, she is being seen by weight loss clinic at [facility] and continues on GLP 1. .. Vaccine: UTD with and pneumonia. UTD COVID vacc ,up-to-date with flu vaccine , needs up-to-date tetanus SINGER AND UNLOADER: has upcoming appointment with cigar wrapper tender automatic.. Mammogram: Done mammogram in October of 2023- BI-RADS 1 Colonoscopy: Done at age 50, normal repeat 10 years [facility] Medical History Obesity (BMI 30-39.9) Asthma Surgical History Previous section S/P cholecystectomy Family History Father Hairy cell leukemia Social History (Updated 08/27/24 @ 08:28 by Keo Hilario PA-C) Household Members: Spouse and Children Housing: House Are you a primary managed care manager to a significant other at home: No Do you presently have visiting nurse or other home services: No Alcohol intake: current Alcohol intake frequency: a few times a week Alcohol type: wine Patient Tobacco Use Status: Never used Tobacco e-Cigarette/Vaping Use: Never Used Second Hand Smoke Exposure: No service: No Current occupational status: employed Current occupation: [employer] Sexual orientation: Straight/Heterosexual Gender identity: Female Cognitive needs: No Hearing needs: No Vision needs: No Female Reproductive History Menstrual Age of Menarche: 13 Questionnaire PHQ-9 Over the last 2 weeks, how often have you been bothered by any of the following problems? 1. Little interest or pleasure in doing things: not at all 2. Feeling down, depressed, or hopeless: not at all 3. Trouble falling or staying asleep, or sleeping too much: not at all 4. Feeling tired or having little energy: not at all 5. Poor appetite or overeating: not at all 6. Feeling bad about yourself - or that you are a failure or have let yourself or your family down: not at all 7. Trouble concentrating on things, such as reading the newspaper or watching television: not at all 8. Moving or speaking so slowly that other people could have noticed. Or the opposite - being so fidgety or restless that you have been moving around a lot more than usual: not at all 9. Thoughts that you would be better off or of hurting yourself in some way: not at all Total score: 0 Depression Screening Interpretation: Negative Depression Screening Done: Yes 17043 - PHQ-9 Billing: Yes Source: Developed by Drs. Arnulfo Oquendo, Mariela Wilkinson, Kamar Oglesby and colleagues, with an educational tala from [employer]ravel. Thrive Questionnaire Date Thrive assessed: 08/27/24 I am a: Patient What is your living situation today?: I have a steady place to live Within the past 12 months, did the food you bought not last and you didn't have the money to get more?: Never true Within the past 12 months, did you worry whether your food would run out before you got money to buy more?: Never true Do you have trouble paying for medicines?: No Do you have trouble getting transportation to medical appointments?: No Do you have trouble paying your heating and electricity bill?: No Do you have trouble taking care of your child, family member or friend?: No Do you have trouble with day-to-day activities such as bathing, preparing meals, shopping, managing finances, etc.?: No Are you currently unemployed and looking for a job?: No Are you interested in more education?: No Please select the resources that you would like help with: None Currently or been in a relationship where the following occur: No concerns reported THRIVE Score: 0 AUDIT C Alcohol Use Questionnaire (AUDIT-C) 1. How often do you have a drink containing alcohol?: Monthly or less 2. How many drinks containing alcohol do you have on a typical day when you are drinking?: 1 or 2 3. How often do you have six or more drinks on one occasion?: Never Total Score: 1 DUANE-7 AMB Questionnaire DUANE-7 Date DUANE - 7 assessed: 08/27/24 Feeling nervous, anxious, or on edge: 0 = Not at all Not being able to stop or control worryin = Not at all Worrying too much about different things: 0 = Not at all Trouble relaxin = Not at all Being so restless that it is hard to sit still: 0 = Not at all Becoming easily annoyed or irritable: 0 = Not at all Feeling afraid as if something awful might happen: 0 = Not at all Total DUANE-7 score (0-4 normal; 5-9 mild; 10-14 moderate; 15-21 severe): 0 Source: Developed by Drs. Arnulfo Oquendo, Mariela Wilkinson, Kamar Oglesby and colleagues, with an educational tala from itravel. DUANE-7 Assessment Billing DUANE-7 Assessment Tool: DUANE-7 Assessment 47036 ACT Questionnaire In the past 4 weeks, how much of the time did your asthma keep you from getting as much done at work, school or at home?: None of the time During the past 4 weeks, how often have you had shortness of breath?: Not at all During the past 4 weeks, how often did your asthma symptoms wake you up at night or earlier than usual in the morning?: Not at all During the past 4 weeks, how often have you had to use your rescue inhaler or nebulizer medication?: Once a week or less How would you rate your asthma control during the past 4 weeks?: Completely controlled ACT Interpretation: Negative Score: 24 Review of Systems Const Denies body aches, Denies chills, Denies excessive sweating, Denies fatigue, Denies fever(s) and Denies headache(s) Eyes Denies blurry vision ENT Denies dysphagia, Denies vertigo, Denies dizziness, Denies headache(s), Denies hearing loss and Denies tinnitus Card Denies chest pain, Denies chest pain with activity, Denies syncope, Denies irregular heart rhythm and Denies dyspnea Resp Denies chest congestion, Denies cough, Denies hemoptysis, Denies dyspnea and Denies wheezing GI Denies abdominal pain, Denies melena, Denies hematochezia, Denies coffee ground emesis, Denies dysphagia, Denies diarrhea, Denies nausea and Denies vomiting Denies urinary frequency, Denies dysuria, Denies urinary hesitancy and Denies urinary urgency Musc Denies arthralgias, Denies limited range of motion, Denies muscle cramps and Denies muscle weakness Skin/Breast Denies rash and Denies skin ulcer Neuro Denies Abnormal speech present, Denies confusion, Denies vertigo, Denies dizziness, Denies syncope, Denies headache(s), Denies memory loss and Denies seizure-like activity Psych Denies anxiety, Denies confusion, Denies depression, Denies memory loss, Denies panic attacks and Denies paranoia Endo Denies excessive sweating, Denies fatigue, Denies flushing, Denies polydipsia and Denies polyuria Aller/Immun Denies wheezing Physical exam (Primary Care) Vital Signs: Last Vital Signs Temp 96.7 F L 08/27/24 08:18 Pulse 91 08/27/24 08:18 BP 122/70 08/27/24 08:18 Pulse Ox 96 08/27/24 08:18 Oxygen Delivery Method Room Air 08/27/24 08:18 BMI result Body Mass Index 33.5 BMI Assessment/Plan discussion: High BMI High, discussed plan: lifestyle, weight reduction, dietary and physical activity Tobacco/Smoking Status: Tobacco use Status Tobacco use date assessed 08/27/24 08/27/24 08:22 Patient Tobacco Use Status Never used Tobacco 08/27/24 08:28 e-Cigarette/Vaping Use Never Used 08/27/24 08:28 PHQ-9: PHQ-9 Score PHQ-9: Total score 0 08/27/24 08:24 Depression Screening Interpretation: Negative Thrive Assessment: Date of Thrive Assessment Date Thrive assessed 08/27/24 08/27/24 08:22 Currently or been in a relationship where the following occur: No concerns reported Const General: cooperative, comfortable, no acute distress, alert and awake; No confusion Orientation/consciousness: oriented to person, oriented to place, patient oriented x3 and No confusion HENMT Head: Yes normocephalic Ears: external ears normal and TM's normal bilaterally Face and sinus: No sinus tenderness Mouth: Normal oral and palatal mucosa present and tongue normal Teeth and gingiva: dentition normal and gingiva normal Throat: Yes posterior oropharynx normal, Yes tonsils normal and Yes uvula midline Eyes Conjunctivae: conjunctivae normal Sclerae: sclerae normal Pupils: Equal, round and reactive pupils present EOM: EOMs intact bilaterally Direct Ophthalmoscopy: No no photophobia Neck Neck: Yes no lymphadenopathy, No tender and Yes no JVD Thyroid: Thyroid normal Carotids: no bruits Chest Chest palpation & inspection: no tenderness Resp Effort & Inspection: normal respiratory effort, no audible wheezes, not labored and no stridor Auscultation: no crackles, no rales, no rhonchi and no wheezes Cardio Jugular venous distension: no JVD Rate: regular rate, not bradycardic and not tachycardic Rhythm: regular rhythm Bruits: no carotid bruits Peripheral pulses: Peripheral pulses 2+ throughout GI Inspection: Yes normal to inspection, No abdominal wall ecchymosis and No visible herniation Palpation (GI): Soft to palpation, nontender, no guarding, not rigid and No hepatosplenomegaly present Auscultation: normoactive bowel sounds General: Yes no CVA tenderness Back/Spine/Pelvis Back: no CVA tenderness and No back tenderness Cervical Spine: cervical ROM normal Thoracic/Lumbar Spine: thoracic and lumbar spine normal to inspection, straight leg raise negative bilaterally, No thoraco-lumbar ROM limited and No lumbar spinal tenderness Skin Lesions: no lesions Rashes: no rashes Wounds: no wounds Neuro General: oriented to person, oriented to place, patient oriented x3, CN's II-XI intact bilaterally and No confusion Cranial nerves: Yes Equal, round and reactive pupils present and Yes Normal accommodation reflex present Cognition (Neuro): normal cognition Speech: No Abnormal speech present Gait exam (Neuro): Normal gait present Motor exam (neuro): 5/5 motor strength present throughout Extrem Right upper extremity: full ROM; no cyanosis Left upper extremity: full ROM; no cyanosis Right lower extremity: no edema Left lower extremity: no edema Psych Appearance: grossly normal Mental Status: mental status grossly normal Affect: normal affect Attitude: cooperative Thought process: Normal thought process present Office Procedures Flu Questionnaire Does the patient have a severe egg allergy?: No Does the patient have severe life threatening allergies?: No Does the patient have a fever or illness today?: No Has the patient ever had Guillain-Odin Syndrome?: No Has the patient ever had any past reaction to a flu shot?: No Immunizations Fluarix Triv [id number] (PF) 45 mcg (15 mcg x 3)/0.5 mL IM syringe Performing Provider: Keo Hilario PA-C [facility] Administered by: Shira Molina RN on 08/27/24 08:52 Dose Route Admin Location Dispensed Lot Number Expiration Date [facility] Morning Caregiver 0.5 mL IM Right Deltoid 0.5 mL [id number] 02/03/25 [id number] [employer] VIS Given Date VIS Provided VIS Publication Date 08/27/24 Single Vaccine 21 Eligibility Eligibility Date Funding Source Not VFC Eligible 08/27/24 Private Coding Level of Care Code Est Pt Prev Care 40-64y(43443) Diagnoses Annual physical exam Z00.00 Moderate persistent asthma without complication J45.40 Asthma complication type: uncomplicated Left lower lobe pulmonary nodule R91.1 Class 1 obesity E66.811 Impaired glucose metabolism R73.09 Additional Codes PHQ-9 - 87920 - PHQ-9 Billing: Yes ([id number]) DUANE-7 Assessment Billing - DUANE-7 Assessment Tool: DUANE-7 Assessment 33956 ([id number]) Asthma Control Questionnaire - ACT Interpretation: Negative ([id number]) Assessment & Plan Assessment & Plan (1) Annual physical exam: Code(s): Z00.00 - Encounter for general adult medical examination without abnormal findings Category: Medical Plan: As per HPI (2) Moderate persistent asthma: Comment: well controlled , no admissions. pcp- monitors Pre ANESTHESIA CONSULT Code(s): J45.40 - Moderate persistent asthma, uncomplicated Category: Medical Qualifiers: Asthma complication type: uncomplicated Qualified Code(s): J45.40 - Moderate persistent asthma, uncomplicated Plan: Patient reports her asthma is fairly well controlled with her maintenance inhalers. No recent asthma exacerbations or nighttime awakenings with asthma symptoms. (3) Left lower lobe pulmonary nodule: Code(s): R91.1 - Solitary pulmonary nodule Category: Medical Plan: Was recently found to have a solitary pulmonary nodule. Will continue to have follow-up with CT chest (4) Class 1 obesity: Code(s): E66.811 - Obesity, class 1 Category: Medical Plan: Patient does understand her BMI is over 30 will continue working on better eating habits and physical activity. She does see a weight loss clinic in [place] to which she is on a GLP 1 which has helped her tremendously losing weight. (5) Impaired glucose metabolism: Code(s): R73.09 - Other abnormal glucose Category: Medical Plan: Patient has a history of impaired glucose metabolism though since being on her weight loss journey her sugars has been much better. Will continue with lifestyle and dietary modifications. Orders: Orders Influenza [id number] Immunization Today Z23 - Encounter for immunization Complete Blood Count Auto Diff Today R73.09 - Other abnormal glucose Hemoglobin A1c Today R73.09 - Other abnormal glucose Comprehensive [place]. Panel Fast Today R73.09 - Other abnormal glucose
[2024-08-27 08:18] VITALS: BP 122/70; PULSE 91; TEMP 35.9; O2SAT 96; BMI 33.5
== END 2024-08-27 08:58 | disposition home or self-care (01) ==
PROVIDERS: PCP Physician Assistant; Visit Provider Physician Assistant
DX: Z00.00 Encounter for general adult medical examination without abnormal findings (principal); J45.40 Moderate persistent asthma, uncomplicated; E66.811 Obesity, class 1; Z68.33 Body mass index [BMI] 33.0-33.9, adult; R91.1 Solitary pulmonary nodule; R73.09 Other abnormal glucose; Z23 Encounter for immunization

== ENCOUNTER → 2024-08-27 08:01 | Outpatient (BNVA) | payer BC, SELFPAY | PROVIDERS: PCP Physician Assistant; Visit Provider Physician Assistant | DX: Z00.00 Encounter for general adult medical examination without abnormal findings (principal); Z23 Encounter for immunization; J45.40 Moderate persistent asthma, uncomplicated; E66.811 Obesity, class 1; Z68.33 Body mass index [BMI] 33.0-33.9, adult; R73.09 Other abnormal glucose; F41.9 Anxiety disorder, unspecified | CPT/HCPCS: 90471; 90656; 96127; 96160 ==

== ENCOUNTER 2024-10-22 07:57 | Outpatient (REF) | payer BC, SELFPAY ==
--- OUTSIDE RECORDS SUMMARY | 2024-10-22 08:02 | XMS_ITS ---
Author Organization [facility] Address [address] [place] [address] Care Team Providers Care Insulation Engineman Name Role Phone MANISHA BLUM Unavailable [phone] REASON FOR VISIT CLAIM DENIAL Encounters Encounter Location Date Provider Diagnosis [facility] [address] [place] [id number] 08/21/2024 MANISHA BLUM PLAN OF TREATMENT No Information Progress Notes * Gabriela CEDEÑODOB:1970 ( 54 yo F)Acc No.[id number]:08/21/2024 Patient:??Gabriela CEDEÑO :1970?Age:54 Y?Sex:Fe male Address:[address] [place] [address] * true * Date:??
--- OUTSIDE RECORDS SUMMARY | 2024-10-22 08:02 | XMS_ITS ---
Author Organization [facility] Address [address] [place] [address] Care Team Providers Care Regulatory Associate Name Role Phone MANISHA BLUM Unavailable [phone] MOSES FUENTES Unavailable [phone] REASON FOR VISIT pt here for wt mgt seca done MEDICATIONS Medication SIG (Take, Route, Frequency, Duration) Notes Start Date End Date Status Serevent Diskus 50 MCG/ACT 1 puff Inhalation Twice a day Active Zepbound 12.5 MG/0.5ML Inject 12.5 mg Solis bcutaneous once weekly for 28 days 04/30/2024 Active Metoprolol Succinate 25 MG 1 capsule Orally Once a day Active Pulmicort Flexhaler 90 MCG/ACT 1 puff Inhalation Twice a day Active PROBLEMS Problem Type ICD Code Onset Dates Problem Status W/U Status Risk SNOMED Code Notes Problem BMI 35.0-35.9,ad ult (Z68.35) Active confirmed [id number] VITAL SIGNS Heart Rate 97 /min 07/23/2024 Blood pressure systolic 118 mm Hg 07/23/20 24 Blood pressure diastolic 82 mm Hg 024 Weight 193 lbs 07/23/2024 BMI 35.3 kg/m2 07/23/2024 Height 62 in 07/23/2024 Oximetry 99 % 07/23/2024 Encounters Encounter Location Date Provider Diagnosis [facility] [address] [address] 07/23/2024 MOSES FUENTES BMI 35.0-35.9,adult Z68.35 ; Adult-onset obesity E66.9 and Mild intermittent asthma, uncomplicated J45.20 ASSESSMENTS Encounter Date Diagnosis Assessment Notes Treatment Notes Treatment Clinical Notes Section Notes 07/23/2024 BMI 35.0-35.9,adult (ICD-10 - Z68.35) Patient is here for weight management follow-up. We focused on significance of healthy lifestyle changes. We talked about need to track steps with goal between 6000-10,000 steps daily, focus on portion control, read food labels, get adequate sleep between 7 to 8 hours, get adequate rest to the body, meditate, frequent nutritious meals including vegetables and healthy choices of lean meats, fish, and elimination of refined carbohydrates. We also talked about mindfulness and mindful eating. Particular focus was on continuing mindful eating and thinking about creative ways to implement more resistance training through use of apps like [employer]. Total time spent with 30 minutes with greater than 50% spent on counseling and coordinating care. 06/02/2023: Weight 206 pounds, BMI 37.67 11/02/2023: Weight 202 pounds, BMI 36.94 02/24/2024: Weight 205 pounds, BMI 37.49 04/30/2024: Weight 200 pounds, BMI 36.58 05/28/2024: Weight 198 pounds, BMI 36.21. SECA scan unable to be completed as there is malfunction with equipment. Patient demonstrates understanding. She is down 2 pounds from previous visit which she was congratulated for. Has been tolerating increased dose of Zepbound 12.5 mg well, reports occasional acid reflux and some diarrhea however otherwise well-managed. She reports good diet, good hydration, and has been exercising through running and walking. She will follow-up in the office in approximately 4 weeks for weight management. All patient questions answered at this time. 07/23/2024: Weight 193 pounds, BMI 35.3. Down 5 pounds in previous visit. SECA scan completed today and interpreted with the patient. Comparing body composition scan from April to today she has lost 8 pounds of fat mass which she was congratulated for. Has been maintaining 44 pounds of muscle mass. Visceral adipose tissue index also decreasing. At this time plan to continue Zepbound 12.5 mg once weekly. Discussed proper use of the medication as well as expected side effect profile. She will follow-up in the office in approximately 4 weeks for continued weight management. # Asthma: Patient is asymptomatic in office without shortness of breath, dyspnea on exertion, or wheezing. Continue Pulmicort 90 mcg inhaler 1 puff twice daily. Continue Serevent discus 50 mcg 1 puff inhalation twice daily. Will continue to monitor. Please follow-up with PCP. All questions have been answered to patient's satisfaction. Patient verbalized understanding of diagnosis and treatments explained. Advised to call sooner prior to next visit it any questions/concerns arise. Case discussed with collaborating physician Chuck Aragon who reviewed the assessment and plan. Chart, medications, labs, vital signs reviewed. Dictation was accomplished with the use of [employer] voice recognition software, which is prone to medical misidentifications and grammatical errors. This are unintentional and the practitioner does try to identify and correct these, but some could still be present. Please do not hesitate to contact practitioner for clarification. 07/23/2024 Adult-onset obesity (ICD-10 - E66.9) Patient is here for weight management follow-up. We focused on significance of healthy lifestyle changes. We talked about need to track steps with goal between 6000-10,000 steps daily, focus on portion control, read food labels, get adequate sleep between 7 to 8 hours, get adequate rest to the body, meditate, frequent nutritious meals including vegetables and healthy choices of lean meats, fish, and elimination of refined carbohydrates. We also talked about mindfulness and mindful eating. Particular focus was on continuing mindful eating and thinking about creative ways to implement more resistance training through use of apps like [employer]. Total time spent with 30 minutes with greater than 50% spent on counseling and coordinating care. 06/02/2023: Weight 206 pounds, BMI 37.67 11/02/2023: Weight 202 pounds, BMI 36.94 02/24/2024: Weight 205 pounds, BMI 37.49 04/30/2024: Weight 200 pounds, BMI 36.58 05/28/2024: Weight 198 pounds, BMI 36.21. SECA scan unable to be completed as there is malfunction with equipment. Patient demonstrates understanding. She is down 2 pounds from previous visit which she was congratulated for. Has been tolerating increased dose of Zepbound 12.5 mg well, reports occasional acid reflux and some diarrhea however otherwise well-managed. She reports good diet, good hydration, and has been exercising through running and walking. She will follow-up in the office in approximately 4 weeks for weight management. All patient questions answered at this time. 07/23/2024: Weight 193 pounds, BMI 35.3. Down 5 pounds in previous visit. SECA scan completed today and interpreted with the patient. Comparing body composition scan from April to today she has lost 8 pounds of fat mass which she was congratulated for. Has been maintaining 44 pounds of muscle mass. Visceral adipose tissue index also decreasing. At this time plan to continue Zepbound 12.5 mg once weekly. Discussed proper use of the medication as well as expected side effect profile. She will follow-up in the office in approximately 4 weeks for continued weight management. # Asthma: Patient is asymptomatic in office without shortness of breath, dyspnea on exertion, or wheezing. Continue Pulmicort 90 mcg inhaler 1 puff twice daily. Continue Serevent discus 50 mcg 1 puff inhalation twice daily. Will continue to monitor. Please follow-up with PCP. All questions have been answered to patient's satisfaction. Patient verbalized understanding of diagnosis and treatments explained. Advised to call sooner prior to next visit it any questions/concerns arise. Case discussed with collaborating physician Chuck Aragon who reviewed the assessment and plan. Chart, medications, labs, vital signs reviewed. Dictation was accomplished with the use of [employer] voice recognition software, which is prone to medical misidentifications and grammatical errors. This are unintentional and the practitioner does try to identify and correct these, but some could still be present. Please do not hesitate to contact practitioner for clarification. 07/23/2024 Mild intermittent asthma, uncomplicated (ICD-10 - J45.20) Patient is here for weight management follow-up. We focused on significance of healthy lifestyle changes. We talked about need to track steps with goal between 6000-10,000 steps daily, focus on portion control, read food labels, get adequate sleep between 7 to 8 hours, get adequate rest to the body, meditate, frequent nutritious meals including vegetables and healthy choices of lean meats, fish, and elimination of refined carbohydrates. We also talked about mindfulness and mindful eating. Particular focus was on continuing mindful eating and thinking about creative ways to implement more resistance training through use of apps like [employer]. Total time spent with 30 minutes with greater than 50% spent on counseling and coordinating care. 06/02/2023: Weight 206 pounds, BMI 37.67 11/02/2023: Weight 202 pounds, BMI 36.94 02/24/2024: Weight 205 pounds, BMI 37.49 04/30/2024: Weight 200 pounds, BMI 36.58 05/28/2024: Weight 198 pounds, BMI 36.21. SECA scan unable to be completed as there is malfunction with equipment. Patient demonstrates understanding. She is down 2 pounds from previous visit which she was congratulated for. Has been tolerating increased dose of Zepbound 12.5 mg well, reports occasional acid reflux and some diarrhea however otherwise well-managed. She reports good diet, good hydration, and has been exercising through running and walking. She will follow-up in the office in approximately 4 weeks for weight management. All patient questions answered at this time. 07/23/2024: Weight 193 pounds, BMI 35.3. Down 5 pounds in previous visit. SECA scan completed today and interpreted with the patient. Comparing body composition scan from April to today she has lost 8 pounds of fat mass which she was congratulated for. Has been maintaining 44 pounds of muscle mass. Visceral adipose tissue index also decreasing. At this time plan to continue Zepbound 12.5 mg once weekly. Discussed proper use of the medication as well as expected side effect profile. She will follow-up in the office in approximately 4 weeks for continued weight management. # Asthma: Patient is asymptomatic in office without shortness of breath, dyspnea on exertion, or wheezing. Continue Pulmicort 90 mcg inhaler 1 puff twice daily. Continue Serevent discus 50 mcg 1 puff inhalation twice daily. Will continue to monitor. Please follow-up with PCP. All questions have been answered to patient's satisfaction. Patient verbalized understanding of diagnosis and treatments explained. Advised to call sooner prior to next visit it any questions/concerns arise. Case discussed with collaborating physician Chuck Aragon who reviewed the assessment and plan. Chart, medications, labs, vital signs reviewed. Dictation was accomplished with the use of [employer] voice recognition software, which is prone to medical misidentifications and grammatical errors. This are unintentional and the practitioner does try to identify and correct these, but some could still be present. Please do not hesitate to contact practitioner for clarification. PLAN OF TREATMENT Medication Medication Name Sig Start Date Stop Date Notes Zepbound 12.5 MG/0.5ML Inject 12.5 mg Solis bcutaneous once weekly for 28 days 04/30/2024 Progress Notes * Gabriela HOSKINSDOB:1970 ( 53 yo F)Acc No.[id number]:07/23/2024 Patient:??Gabriela HOSKINS Provider:??MOSES FUENTES :1970?Age:53 Y?Sex:Fe male Date:07/23/2024 [facility] Subjective: * Chief Complaints: * ?1. Pt here for wt mgt seca done. * HPI: ?Constitutional:? Gabriela is a 53-year-old female with history of obesity and asthma who presents to the office today for weight management follow-up. She was last seen in the office for continued management on 05/28/2024 at which time her weight was 198 pounds, BMI 36.21. Currently on Zepbound 12.5 mg once weekly. Has been thriving on current dose and tolerating medication well. Constipation has been improving. Reports good effect of her appetite suppression throughout entire week. Trying to walk when she can for exercise, have been trying to get into resistance training however feeling intimidated at the gym. Reports good hydration. Wishes to continue current dose and requesting refill. * ROS:?Constitutional: Denies sudden weight loss, fever, night sweats, excessive fatigue, or changes in sleep. ???CV: Denies chest pain or heart palpitations. ???Respiratory: Denies SOB, wheezing, or pleuritic pain. ???GI: Denies n/v/d, constipation, blood in stools, pain associated with eating, indigestion, or difficulty/pain with swallowing. ???MSK: Denies back pain, joint deformity/pain, or muscle weakness. ???Integumentary: Denies skin changes. ???Endocrine: Denies polyuria, polyphagia, or polydipsia. No heat/cold intolerance or excessive thirst. * Medical History:??Medical Hi story Verified. * Surgical History:??C section 02/28/2007, cholecystectomy . * Hospitalization/Major Diagno stic Procedure:??Denies Past Hospitalization. * Family History:??Father: ali ve 77 yrs.??Mother: alive 76 yrs.??2 sister(s) - healthy. 1 son(s) , 1 daughter(s) - healthy. .?? Mother- hoshimotos. hypertension, obese Father- Hairy cell leukemia, hypertension, type 2 diabetes, obese. * Medications:??Taking Metopro lol Succinate 25 MG Capsule ER 24 Hour Sprinkle 1 capsule Orally Once a day , Taking Pulmicort Flexhaler 90 MCG/ACT Aerosol Powder Breath Activated 1 puff Inhalation Twice a day , Taking Serevent Diskus 50 MCG/ACT Aerosol Powder Breath Activated 1 puff Inhalation Twice a day , Taking Zepbound 12.5 MG/0.5ML Solution Auto-injector 12.5mg Subcutaneous weekly , Medication List reviewed and reconciled with the patient Objective: * Vitals:??HR:97/min, BP:118/8 2mm Hg, Wt:193lbs, BMI:35.3Index, Ht: 62 in, Oxygen sat %:99%. * Physical Examination:?General: Age appropriate, well-appearing 53-year-old female in no acute distress, speaking in full sentences without respiratory compromise. Well groomed, well developed. Alert, interactive. ?Skin: Warm, dry and intact. No lesions/rashes/erythema. ?HEENT: Normocephalic/atraumatic. ?Neck/Thyroid: Thyroid symmetrical, nonenlarged, and free of nodules to palpation. ?Lungs: Clear to auscultation bilaterally. ?CV: Regular rate and rhythm without murmurs, rubs, or gallops. 2+ radial pulses bilaterally. ?Neuro: CN II-XII grossly intact. Steady gait with non-assisted ambulation observed. ?Psych: Stable mood and affect. Assessment: * Assessment: 1.??Adult-onset obesity - E6 6.9 (Primary)??2.??BMI 35.0-35.9,adult - Z68.35??3.??Mild intermittent asthma, uncomplicated - J45.20?? Patient is here for weight m anagement follow-up. We focused on significance of healthy lifestyle changes. We talked about need to track steps with goal between 6000-10,000 steps daily, focus on portion control, read food labels, get adequate sleep between 7 to 8 hours, get adequate rest to the body, meditate, frequent nutritious meals including vegetables and healthy choices of lean meats, fish, and elimination of refined carbohydrates. We also talked about mindfulness and mindful eating. Particular focus was on continuing mindful eating and thinking about creative ways to implement more resistance training through use of apps like [employer]. Total time spent with 30 minutes with greater than 50% spent on counseling and coordinating care. 06/02/2023: Weight 206 pounds, BMI 37.67 11/02/2023: Weight 202 pounds, BMI 36.94 02/24/2024: Weight 205 pounds, BMI 37.49 04/30/2024: Weight 200 pounds, BMI 36.58 05/28/2024: Weight 198 pounds, BMI 36.21. SECA scan unable to be completed as there is malfunction with equipment. Patient demonstrates understanding. She is down 2 pounds from previous visit which she was congratulated for. Has been tolerating increased dose of Zepbound 12.5 mg well, reports occasional acid reflux and some diarrhea however otherwise well-managed. She reports good diet, good hydration, and has been exercising through running and walking. She will follow-up in the office in approximately 4 weeks for weight management. All patient questions answered at this time. 07/23/2024: Weight 193 pounds, BMI 35.3. Down 5 pounds in previous visit. SECA scan completed today and interpreted with the patient. Comparing body composition scan from April to today she has lost 8 pounds of fat mass which she was congratulated for. Has been maintaining 44 pounds of muscle mass. Visceral adipose tissue index also decreasing. At this time plan to continue Zepbound 12.5 mg once weekly. Discussed proper use of the medication as well as expected side effect profile. She will follow-up in the office in approximately 4 weeks for continued weight management. # Asthma: Patient is asymptomatic in office without shortness of breath, dyspnea on exertion, or wheezing. Continue Pulmicort 90 mcg inhaler 1 puff twice daily. Continue Serevent discus 50 mcg 1 puff inhalation twice daily. Will continue to monitor. Please follow-up with PCP. All questions have been answered to patient's satisfaction. Patient verbalized understanding of diagnosis and treatments explained. Advised to call sooner prior to next visit it any questions/concerns arise. Case discussed with collaborating physician Chuck Aragon who reviewed the assessment and plan. Chart, medications, labs, vital signs reviewed. Dictation was accomplished with the use of [employer] voice recognition software, which is prone to medical misidentifications and grammatical errors. This are unintentional and the practitioner does try to identify and correct these, but some could still be present. Please do not hesitate to contact practitioner for clarification. Plan: * Treatment: * Procedure Codes:??G0447 FCE- FCE BEHAVRL CNSL OBESITY 15 MIN, Modifiers: 59 * Images: Billing Information: * Visit Code:?? 25554 Office Visit, Est Pt., Level 4. * Procedure Codes:?? G0447 FCE-FCE BEHAVRL CNSL OBESITY 15 MIN. Modifiers: 59 * Sign off status: Completed true * Provider:??MOSES FUENTES Date:?? 024 History and Physical Notes * HPI (History of Present Illness) Category Sub-Category Detail Notes Category Not es Constitutional Gabriela is a 53 -year-old female with history of obesity and asthma who presents to the office today for weight management follow-up. She was last seen in the office for continued management on 05/28/2024 at which time her weight was 198 pounds, BMI 36.21. Currently on Zepbound 12.5 mg once weekly. Has been thriving on current dose and tolerating medication well. Constipation has been improving. Reports good effect of her appetite suppression throughout entire week. Trying to walk when she can for exercise, have been trying to get into resistance training however feeling intimidated at the gym. Reports good hydration. Wishes to continue current dose and requesting refill. Physical Examination Category Sub-Category Detail Notes Section Note s General: Age appropriate, well-appearing 53-year-old female in no acute distress, speaking in full sentences without respiratory compromise. Well groomed, well developed. Alert, interactive. Skin: Warm, dry and intact. No lesions/rashes/erythema. HEENT: Normocephalic/atraumatic. Neck/Thyroid: Thyroid symmetrical, nonenlarged, and free of nodules to palpation. Lungs: Clear to auscultation bilaterally. CV: Regular rate and rhythm without murmurs, rubs, or gallops. 2+ radial pulses bilaterally. Neuro: CN II-XII grossly intact. Steady gait with non-assisted ambulation observed. Psych: Stable mood and affect.
--- OUTSIDE RECORDS SUMMARY | 2024-10-22 08:02 | XMS_ITS | Patient Health Record ---
Author Organization [facility] Address [address] [place] [address] Care Team Providers Care Color Sprayer Name Role Phone MANISHA BLUM Unavailable [phone] ALFREDO MOSES Unavailable [phone] ALLERGIES No Known Allergies REASON FOR REFERRAL No Information MEDICATIONS Medication SIG (Take, Route, Frequency, Duration) [...] W/U Status Risk SNOMED Code Notes Problem Mild intermittent asthma, uncomplicated (J45.20) Active confirmed 559799359 Problem BMI 35.0-35.9,adult (Z68.35) Active confirmed 047404447 Problem Adult-onset obesity (E66.9) Active confirmed [id number] VITAL SIGNS Heart Rate 97 /min 07/23/2024 Blood pressure diastolic 82 mm Hg 07/23/2024 Oximetry 99 % 07/23/2024 Height 62 in 07/23/2024 Blood pressure systolic 118 mm Hg 07/23/2024 Weight 193 lbs 07/23/2024 BMI 35.3 kg/m2 07/23/2024 Encounters Encounter Location Date Provider Diagnosis [facility] [address] [facility] [address] [place] [address] 12/28/2023 MANISHA MINAJONH Other obesity due to excess calories E66.09 ; Chronic obstructive asthma J44.89 and BMI 36.0-36.9,adult Z68.36 [facility] [address] [address] 02/27/[address] [facility] [address] 04/29/2024 MANISHA VIKTORIA [facility] [address] 06/25/2024 MOSES FUENTES [facility] [address] 08/20/2024 MOSES FUENTES [facility] [address] [address] 11/02/2023 MANISHA BLUM Chronic obstructive asthma J44.89 ; Other obesity due to excess calories E66.09 and BMI 36.0-36.9,adult Z68.36 [facility] [address] [place] [address] 02/24/2024 MANISHA BLUM Other obesity due to excess calories E66.09 ; BMI 36.0-36.9,adult Z68.36 and Chronic obstructive asthma J44.89 [facility] [address] 04/30/2024 MANISHA VIKTORIA Other obesity due to excess calories E66.09 ; BMI 35.0-35.9,adult Z68.35 ; Dietary counseling and surveillance Z71.3 and Chronic obstructive asthma J44.89 [facility] [address] 05/28/2024 MOSES FUENTES Adult-onset obesity E66.9 ; BMI 36.0-36.9,adult Z68.36 and Mild intermittent asthma, uncomplicated J45.[address] [facility] [address] 07/23/2024 MOSES FUENTES BMI 35.0-35.9,adult Z68.35 ; Adult-onset obesity E66.9 and Mild intermittent asthma, uncomplicated J45.[address] [facility] [address] [address] 12/29/2023 MANISHA BLUM Other obesity due to excess calories E66.[address] [facility] [address] [place] [address] 02/20/2024 MANISHA BLUM Other obesity due to excess calories E66.09 [address] [facility] [address] [facility] [address] [place] [address] 08/21/[address] [facility] [address] [facility] [address] [place] [address] 12/27/[address] [facility] [address] [address] 12/27/2023 MANISHA BLUM [address] [facility] [address] [place] [address] 03/25/2024 MANISHA BLUM [facility] [address] [address] 04/26/2024 MANISHA BLUM [facility] [address] [address] 04/26/2024 MANISHA BLUM ASSESSMENTS Encounter Date Diagnosis Assessment Notes Treatment Notes Treatment Clinical Notes Section Notes 11/02/2023 Other obesity due to excess calories (ICD-10 - E66.09) #Weight Management 11/01/2023 zepbound 2.5mg Total time spent today was 30 minutes of which greater than 50% was spent on coordinating and counseling Patient has been found to be obese with a BMI of (36). Patient has class (2) obesity. We are a board certified obesity and weight management practice Patient has trialed behavioral modification, dietary restrictions and exercise for a minimum of 6 months The most recent [place] [employer] of clinical endocrinologists and [place] [employer] guidelines recommend patients who have overweight BMI or obesity BMI, who also have metabolic syndrome, prediabetes, or at risk of developing type 2 diabetes should aim for a weight loss goal of at least 10% of the baseline body weight Patient counseled regarding effects of GLP/GIP-1 agonists, and other FDA approved wgt loss meds with regards to a multifactorial approach of weight loss as mentioned above and not solely appetite suppression. We have discussed the mechanism of GLP-1's/GIP, dual incretins, appetitite suppressants I think this would be fantastic option for her given her metabolic workup and body composition We have discussed the risks and benefits and side effects including/and not limited to Sarcopenia, intestinal obstruction, constipation, nausea, lethargy, headache Discussed importance of protein consumption for muscle maintenance as well as strength and resistance training ,probiotics, B12 complex biotin , iron and other nutrients, To help avoid telogen effluvium We have discussed the lifelong requirement of nutritional supplementation And adherence to an exercise regimen as well as importance of follow-up The patient understands and agrees There is no history of medullary thyroid cancer or multiple endocrine neoplasia There is also no history of cardiovascular disease, hypertension, palpitations, or arrhythmias In the setting of potential stimulant/amphetamin e use such as phentermine We have also discussed risks and benefits, and the use of compounded medications to help offset the national shortages as well as financial implications vs trade name drugs Patient was reassured and welcomed to the practice. We discussed that we stress a hollistic medical approach with emphasis on lifestyle modification. Patient was informed that a healthy lifestyle with exercise and good eating habits can help reduce his risk of medical complications. He is explained that obesity increases his risk of diabetes, cardiovascular disease, or organ damage. We spent a lot of time discussing the relationship between food, exercise, sleep, mental health and obesity. Patient was counseled on the importance EATING local, organic food when possible. Patient was educated on clean 15 and dirty dozen. I provided information about reading books called The Food Rules by Chacho Hinojosa and Eat Fat Get Lean by Dr Lopez Dietz. Self education is important in the journey for weight management. Patient was offered diagnostic testing. We want to measure visceral adiposity, advanced body composition, adverse lipids, fatty acid balance, risk for heart disease and atherosclerosis, markers of inflammation and genetic susceptibility. Patient was counseled on weight management and was advised to lose weight using A. Meal Replacement Products We discussed the lifelong requirement of nutritional supplementation and adherence to an exercise regimen as well as importance of dietary follow-up Patient was educated on the replacement products called optifast. This is a good way of taking fixed amount of calories. It has been shown in studies to be ineffective weight management tool. We also recommend maintaining adequate protein intake and muscle composition, 1.5mg/kg This however has to be coupled with lifestyle intervention as well as laboratory data and EKG monitoring. It is impossible to know how a person will tolerate complete meal replacement. The side effects of meal replacement and weight loss could include syncopal attacks, dizziness, gallstones, potential cholecystectomy, possible heart attack and even . The benefits of meal replacement would be potential weight loss but no guarantees can be made. Meal replacement products are not covered by insurance. Once the patient has bought these products we cannot return them B. Lifestyle management which includes several strategies as below 1. Eat a low carbohydrate good fat good protein diet. Eliminate refined carbohydrates from the diet. Continue blood sugar and sugared beverages. Eat local organic when possible. Cook your own meals. Read food labels. None about healthy snacks. Portion control and food with low glycemic index 2. Exercise regularly. Try to get at least 6000 steps a day. Use a predominant to track activity level. Consider using apps like BUKA, InvierteMe,SLfitAltimetpal, lose it, stick as needed for self-monitoring and weight management. Consider group exercises. Consider hiring a personal financial advisor. Regular exercise is harrison to sustainable health and prevents as a buffer against weight regain 3. Sleep is most important for healing. Tried to sleep at least 8 hours a night. A good quality sleep needs a sleep ritual with ideal room temperature of around 68. It might help to take a shower and have no electronics in the room and sleep in a very dark room without artificial light. Start her sleep routine and get up early in the morning and go to bed on time 4. Make a social connection. Surround yourself with positive people with positive energy. Connect with friends and family. 5. Get into the habit of meditating and mindfulness while doing everything. 6. Go outside and connect with nature. C. Prescription medications Patient was educated on the use of prescription medications for medical weight loss. This is a growing list and includes phentermine, Topamax,Qsymia, contrave, belviq and saxenda. All prescription medications could have side effects including but not limited to kidney stones, seizure disorder cardiac arrhythmias heart attack pancreatitis etc. etc.. Patient was encouraged to read the prescription insert and have coaching with their pharmacist and make an informed decision about taking medication and know that these medications are being prescribed with good intentions and we do not know how a patient would react to her medication. Sudden medications are FDA approved for weight loss and there is also off label use depending on patient's inability to afford medications in an attempt to lose weight D. Behavioral counseling was done to establish a relationship between food and an mood. Patient was provided information about local counseling and psychiatry and Dr Peacock at [facility]. We would like to cover regular topics and build on low glycemic eating exercise mindful eating, using yoga and meditation along with deep breathing and connecting with friends and family. E. MASS PAT reviewed, Patient's current medications were reviewed and opinion was given on medication that can cause weight gain and can be substituted F. Patient was assessed for risk with obesity including and not limiting to atherosclerosis heart disease stroke kidney disease, restrictive lung disease, irritable bowel syndrome and overall mortality. Risk of developing prediabetes diabetes and metabolic syndrome was discussed G. Therapeutic plan: We have decided to make therapeutic plan which would include choosing wisely on calories restricting portion getting active, tracking weight, getting good quality sleep and working on time management H. Patient will follow up in (4) weeks for weight management Of note, some information is being carried forward from prior records for informational purposes only and is being cited so that efficiency, safety and quality of the patient's care is not compromised This note was prepared using voice recognition software and direct typing Please excuse inadvertent internal sales engineer or typing errors, or uncorrected word substitutions Although every attempt has been made by the provider to proofread this document, occasional misspellings and typographical errors may still be present Due to the previous pandemic, and the use of personal protective equipment (PPE) This may decrease voice recognition accuracy Inadvertent internal sales engineer errors may occur 12/29/2023 Other obesity due to excess calories (ICD-10 - E66.09) 02/20/2024 Other obesity due to excess calories (ICD-10 - E66.09) 02/24/2024 Other obesity due to excess calories (ICD-10 - E66.09) #Weight Management 02/24/2024 incr zepbound 7.5mg Total time spent today was 30 minutes of which greater than 50% was spent on coordinating and counseling Patient has been found to be obese with a BMI of (36). Patient has class (2) obesity. We are a board certified obesity and weight management practice Patient has trialed behavioral modification, dietary restrictions and exercise for a minimum of 6 months The most recent [place] [employer] of clinical endocrinologists and [place] [employer] guidelines recommend patients who have overweight BMI or obesity BMI, who also have metabolic syndrome, prediabetes, or at risk of developing type 2 diabetes should aim for a weight loss goal of at least 10% of the baseline body weight Patient counseled regarding effects of GLP/GIP-1 agonists, and other FDA approved wgt loss meds with regards to a multifactorial approach of weight loss as mentioned above and not solely appetite suppression. We have discussed the mechanism of GLP-1's/GIP, dual incretins, appetitite suppressants I think this would be fantastic option for her given her metabolic workup and body composition We have discussed the risks and benefits and side effects including/and not limited to Sarcopenia, intestinal obstruction, constipation, nausea, lethargy, headache Discussed importance of protein consumption for muscle maintenance as well as strength and resistance training ,probiotics, B12 complex biotin , iron and other nutrients, To help avoid telogen effluvium We have discussed the lifelong requirement of nutritional supplementation And adherence to an exercise regimen as well as importance of follow-up The patient understands and agrees There is no history of medullary thyroid cancer or multiple endocrine neoplasia There is also no history of cardiovascular disease, hypertension, palpitations, or arrhythmias In the setting of potential stimulant/amphetamin e use such as phentermine We have also discussed risks and benefits, and the use of compounded medications to help offset the national shortages as well as financial implications vs trade name drugs Patient was reassured and welcomed to the practice. We discussed that we stress a hollistic medical approach with emphasis on lifestyle modification. Patient was informed that a healthy lifestyle with exercise and good eating habits can help reduce his risk of medical complications. He is explained that obesity increases his risk of diabetes, cardiovascular disease, or organ damage. We spent a lot of time discussing the relationship between food, exercise, sleep, mental health and obesity. Patient was counseled on the importance EATING local, organic food when possible. Patient was educated on clean 15 and dirty dozen. I provided information about reading books called The Food Rules by Chacho Hinojosa and Eat Fat Get Lean by Dr Lopez Dietz. Self education is important in the journey for weight management. Patient was offered diagnostic testing. We want to measure visceral adiposity, advanced body composition, adverse lipids, fatty acid balance, risk for heart disease and atherosclerosis, markers of inflammation and genetic susceptibility. Patient was counseled on weight management and was advised to lose weight using A. Meal Replacement Products We discussed the lifelong requirement of nutritional supplementation and adherence to an exercise regimen as well as importance of dietary follow-up Patient was educated on the replacement products called optifast. This is a good way of taking fixed amount of calories. It has been shown in studies to be ineffective weight management tool. We also recommend maintaining adequate protein intake and muscle composition, 1.5mg/kg This however has to be coupled with lifestyle intervention as well as laboratory data and EKG monitoring. It is impossible to know how a person will tolerate complete meal replacement. The side effects of meal replacement and weight loss could include syncopal attacks, dizziness, gallstones, potential cholecystectomy, possible heart attack and even . The benefits of meal replacement would be potential weight loss but no guarantees can be made. Meal replacement products are not covered by insurance. Once the patient has bought these products we cannot return them B. Lifestyle management which includes several strategies as below 1. Eat a low carbohydrate good fat good protein diet. Eliminate refined carbohydrates from the diet. Continue blood sugar and sugared beverages. Eat local organic when possible. Cook your own meals. Read food labels. None about healthy snacks. Portion control and food with low glycemic index 2. Exercise regularly. Try to get at least 6000 steps a day. Use a predominant to track activity level. Consider using apps like BUKA, Recorridopal, lose it, stick as needed for self-monitoring and weight management. Consider group exercises. Consider hiring a personal financial advisor. Regular exercise is harrison to sustainable health and prevents as a buffer against weight regain 3. Sleep is most important for healing. Tried to sleep at least 8 hours a night. A good quality sleep needs a sleep ritual with ideal room temperature of around 68. It might help to take a shower and have no electronics in the room and sleep in a very dark room without artificial light. Start her sleep routine and get up early in the morning and go to bed on time 4. Make a social connection. Surround yourself with positive people with positive energy. Connect with friends and family. 5. Get into the habit of meditating and mindfulness while doing everything. 6. Go outside and connect with nature. C. Prescription medications Patient was educated on the use of prescription medications for medical weight loss. This is a growing list and includes phentermine, Topamax,Qsymia, contrave, belviq and saxenda. All prescription medications could have side effects including but not limited to kidney stones, seizure disorder cardiac arrhythmias heart attack pancreatitis etc. etc.. Patient was encouraged to read the prescription insert and have coaching with their pharmacist and make an informed decision about taking medication and know that these medications are being prescribed with good intentions and we do not know how a patient would react to her medication. Sudden medications are FDA approved for weight loss and there is also off label use depending on patient's inability to afford medications in an attempt to lose weight D. Behavioral counseling was done to establish a relationship between food and an mood. Patient was provided information about local counseling and psychiatry and Dr Peacock at [facility]. We would like to cover regular topics and build on low glycemic eating exercise mindful eating, using yoga and meditation along with deep breathing and connecting with friends and family. E. MASS PAT reviewed, Patient's current medications were reviewed and opinion was given on medication that can cause weight gain and can be substituted F. Patient was assessed for risk with obesity including and not limiting to atherosclerosis heart disease stroke kidney disease, restrictive lung disease, irritable bowel syndrome and overall mortality. Risk of developing prediabetes diabetes and metabolic syndrome was discussed G. Therapeutic plan: We have decided to make therapeutic plan which would include choosing wisely on calories restricting portion getting active, tracking weight, getting good quality sleep and working on time management H. Patient will follow up in (4) weeks for weight management Of note, some information is being carried forward from prior records for informational purposes only and is being cited so that efficiency, safety and quality of the patient's care is not compromised This note was prepared using voice recognition software and direct typing Please excuse inadvertent internal sales engineer or typing errors, or uncorrected word substitutions Although every attempt has been made by the provider to proofread this document, occasional misspellings and typographical errors may still be present Due to the previous pandemic, and the use of personal protective equipment (PPE) This may decrease voice recognition accuracy Inadvertent internal sales engineer errors may occur 02/24/2024 BMI 36.0-36.9,adult (ICD-10 - Z68.36) #Weight Management 02/24/2024 incr zepbound 7.5mg Total time spent today was 30 minutes of which greater than 50% was spent on coordinating and counseling Patient has been found to be obese with a BMI of (36). Patient has class (2) obesity. We are a board certified obesity and weight management practice Patient has trialed behavioral modification, dietary restrictions and exercise for a minimum of 6 months The most recent [place] [employer] of clinical endocrinologists and [place] [employer] guidelines recommend patients who have overweight BMI or obesity BMI, who also have metabolic syndrome, prediabetes, or at risk of developing type 2 diabetes should aim for a weight loss goal of at least 10% of the baseline body weight Patient counseled regarding effects of GLP/GIP-1 agonists, and other FDA approved wgt loss meds with regards to a multifactorial approach of weight loss as mentioned above and not solely appetite suppression. We have discussed the mechanism of GLP-1's/GIP, dual incretins, appetitite suppressants I think this would be fantastic option for her given her metabolic workup and body composition We have discussed the risks and benefits and side effects including/and not limited to Sarcopenia, intestinal obstruction, constipation, nausea, lethargy, headache Discussed importance of protein consumption for muscle maintenance as well as strength and resistance training ,probiotics, B12 complex biotin , iron and other nutrients, To help avoid telogen effluvium We have discussed the lifelong requirement of nutritional supplementation And adherence to an exercise regimen as well as importance of follow-up The patient understands and agrees There is no history of medullary thyroid cancer or multiple endocrine neoplasia There is also no history of cardiovascular disease, hypertension, palpitations, or arrhythmias In the setting of potential stimulant/amphetamin e use such as phentermine We have also discussed risks and benefits, and the use of compounded medications to help offset the national shortages as well as financial implications vs trade name drugs Patient was reassured and welcomed to the practice. We discussed that we stress a hollistic medical approach with emphasis on lifestyle modification. Patient was informed that a healthy lifestyle with exercise and good eating habits can help reduce his risk of medical complications. He is explained that obesity increases his risk of diabetes, cardiovascular disease, or organ damage. We spent a lot of time discussing the relationship between food, exercise, sleep, mental health and obesity. Patient was counseled on the importance EATING local, organic food when possible. Patient was educated on clean 15 and dirty dozen. I provided information about reading books called The Food Rules by Chacho Hinojosa and Eat Fat Get Lean by Dr Lopez Dietz. Self education is important in the journey for weight management. Patient was offered diagnostic testing. We want to measure visceral adiposity, advanced body composition, adverse lipids, fatty acid balance, risk for heart disease and atherosclerosis, markers of inflammation and genetic susceptibility. Patient was counseled on weight management and was advised to lose weight using A. Meal Replacement Products We discussed the lifelong requirement of nutritional supplementation and adherence to an exercise regimen as well as importance of dietary follow-up Patient was educated on the replacement products called optifast. This is a good way of taking fixed amount of calories. It has been shown in studies to be ineffective weight management tool. We also recommend maintaining adequate protein intake and muscle composition, 1.5mg/kg This however has to be coupled with lifestyle intervention as well as laboratory data and EKG monitoring. It is impossible to know how a person will tolerate complete meal replacement. The side effects of meal replacement and weight loss could include syncopal attacks, dizziness, gallstones, potential cholecystectomy, possible heart attack and even . The benefits of meal replacement would be potential weight loss but no guarantees can be made. Meal replacement products are not covered by insurance. Once the patient has bought these products we cannot return them B. Lifestyle management which includes several strategies as below 1. Eat a low carbohydrate good fat good protein diet. Eliminate refined carbohydrates from the diet. Continue blood sugar and sugared beverages. Eat local organic when possible. Cook your own meals. Read food labels. None about healthy snacks. Portion control and food with low glycemic index 2. Exercise regularly. Try to get at least 6000 steps a day. Use a predominant to track activity level. Consider using apps like BUKA, myFlirtatious Labspal, lose it, stick as needed for self-monitoring and weight management. Consider group exercises. Consider hiring a personal financial advisor. Regular exercise is harrison to sustainable health and prevents as a buffer against weight regain 3. Sleep is most important for healing. Tried to sleep at least 8 hours a night. A good quality sleep needs a sleep ritual with ideal room temperature of around 68. It might help to take a shower and have no electronics in the room and sleep in a very dark room without artificial light. Start her sleep routine and get up early in the morning and go to bed on time 4. Make a social connection. Surround yourself with positive people with positive energy. Connect with friends and family. 5. Get into the habit of meditating and mindfulness while doing everything. 6. Go outside and connect with nature. C. Prescription medications Patient was educated on the use of prescription medications for medical weight loss. This is a growing list and includes phentermine, Topamax,Qsymia, contrave, belviq and saxenda. All prescription medications could have side effects including but not limited to kidney stones, seizure disorder cardiac arrhythmias heart attack pancreatitis etc. etc.. Patient was encouraged to read the prescription insert and have coaching with their pharmacist and make an informed decision about taking medication and know that these medications are being prescribed with good intentions and we do not know how a patient would react to her medication. Sudden medications are FDA approved for weight loss and there is also off label use depending on patient's inability to afford medications in an attempt to lose weight D. Behavioral counseling was done to establish a relationship between food and an mood. Patient was provided information about local counseling and psychiatry and Dr Peacock at [facility]. We would like to cover regular topics and build on low glycemic eating exercise mindful eating, using yoga and meditation along with deep breathing and connecting with friends and family. E. MASS PAT reviewed, Patient's current medications were reviewed and opinion was given on medication that can cause weight gain and can be substituted F. Patient was assessed for risk with obesity including and not limiting to atherosclerosis heart disease stroke kidney disease, restrictive lung disease, irritable bowel syndrome and overall mortality. Risk of developing prediabetes diabetes and metabolic syndrome was discussed G. Therapeutic plan: We have decided to make therapeutic plan which would include choosing wisely on calories restricting portion getting active, tracking weight, getting good quality sleep and working on time management H. Patient will follow up in (4) weeks for weight management Of note, some information is being carried forward from prior records for informational purposes only and is being cited so that efficiency, safety and quality of the patient's care is not compromised This note was prepared using voice recognition software and direct typing Please excuse inadvertent internal sales engineer or typing errors, or uncorrected word substitutions Although every attempt has been made by the provider to proofread this document, occasional misspellings and typographical errors may still be present Due to the previous pandemic, and the use of personal protective equipment (PPE) This may decrease voice recognition accuracy Inadvertent internal sales engineer errors may occur 11/02/2023 Chronic obstructive asthma (ICD-10 - J44.89) #Weight Management 11/01/2023 zepbound 2.5mg Total time spent today was 30 minutes of which greater than 50% was spent on coordinating and counseling Patient has been found to be obese with a BMI of (36). Patient has class (2) obesity. We are a board certified obesity and weight management practice Patient has trialed behavioral modification, dietary restrictions and exercise for a minimum of 6 months The most recent [place] [employer]ocrin[employer] and [place] [employer] guidelines recommend patients who have overweight BMI or obesity BMI, who also have metabolic syndrome, prediabetes, or at risk of developing type 2 diabetes should aim for a weight loss goal of at least 10% of the baseline body weight Patient counseled regarding effects of GLP/GIP-1 agonists, and other FDA approved wgt loss meds with regards to a multifactorial approach of weight loss as mentioned above and not solely appetite suppression. We have discussed the mechanism of GLP-1's/GIP, dual incretins, appetitite suppressants I think this would be fantastic option for her given her metabolic workup and body composition We have discussed the risks and benefits and side effects including/and not limited to Sarcopenia, intestinal obstruction, constipation, nausea, lethargy, headache Discussed importance of protein consumption for muscle maintenance as well as strength and resistance training ,probiotics, B12 complex biotin , iron and other nutrients, To help avoid telogen effluvium We have discussed the lifelong requirement of nutritional supplementation And adherence to an exercise regimen as well as importance of follow-up The patient understands and agrees There is no history of medullary thyroid cancer or multiple endocrine neoplasia There is also no history of cardiovascular disease, hypertension, palpitations, or arrhythmias In the setting of potential stimulant/amphetamin e use such as phentermine We have also discussed risks and benefits, and the use of compounded medications to help offset the national shortages as well as financial implications vs trade name drugs Patient was reassured and welcomed to the practice. We discussed that we stress a hollistic medical approach with emphasis on lifestyle modification. Patient was informed that a healthy lifestyle with exercise and good eating habits can help reduce his risk of medical complications. He is explained that obesity increases his risk of diabetes, cardiovascular disease, or organ damage. We spent a lot of time discussing the relationship between food, exercise, sleep, mental health and obesity. Patient was counseled on the importance EATING local, organic food when possible. Patient was educated on clean 15 and dirty dozen. I provided information about reading books called The Food Rules by Chacho Hinojosa and Eat Fat Get Lean by Dr Lopez Dietz. Self education is important in the journey for weight management. Patient was offered diagnostic testing. We want to measure visceral adiposity, advanced body composition, adverse lipids, fatty acid balance, risk for heart disease and atherosclerosis, markers of inflammation and genetic susceptibility. Patient was counseled on weight management and was advised to lose weight using A. Meal Replacement Products We discussed the lifelong requirement of nutritional supplementation and adherence to an exercise regimen as well as importance of dietary follow-up Patient was educated on the replacement products called optifast. This is a good way of taking fixed amount of calories. It has been shown in studies to be ineffective weight management tool. We also recommend maintaining adequate protein intake and muscle composition, 1.5mg/kg This however has to be coupled with lifestyle intervention as well as laboratory data and EKG monitoring. It is impossible to know how a person will tolerate complete meal replacement. The side effects of meal replacement and weight loss could include syncopal attacks, dizziness, gallstones, potential cholecystectomy, possible heart attack and even . The benefits of meal replacement would be potential weight loss but no guarantees can be made. Meal replacement products are not covered by insurance. Once the patient has bought these products we cannot return them B. Lifestyle management which includes several strategies as below 1. Eat a low carbohydrate good fat good protein diet. Eliminate refined carbohydrates from the diet. Continue blood sugar and sugared beverages. Eat local organic when possible. Cook your own meals. Read food labels. None about healthy snacks. Portion control and food with low glycemic index 2. Exercise regularly. Try to get at least 6000 steps a day. Use a predominant to track activity level. Consider using apps like BUKA, InvierteMe,SLfitAltimetpal, lose it, stick as needed for self-monitoring and weight management. Consider group exercises. Consider hiring a personal financial advisor. Regular exercise is harrison to sustainable health and prevents as a buffer against weight regain 3. Sleep is most important for healing. Tried to sleep at least 8 hours a night. A good quality sleep needs a sleep ritual with ideal room temperature of around 68. It might help to take a shower and have no electronics in the room and sleep in a very dark room without artificial light. Start her sleep routine and get up early in the morning and go to bed on time 4. Make a social connection. Surround yourself with positive people with positive energy. Connect with friends and family. 5. Get into the habit of meditating and mindfulness while doing everything. 6. Go outside and connect with nature. C. Prescription medications Patient was educated on the use of prescription medications for medical weight loss. This is a growing list and includes phentermine, Topamax,Qsymia, contrave, belviq and saxenda. All prescription medications could have side effects including but not limited to kidney stones, seizure disorder cardiac arrhythmias heart attack pancreatitis etc. etc.. Patient was encouraged to read the prescription insert and have coaching with their pharmacist and make an informed decision about taking medication and know that these medications are being prescribed with good intentions and we do not know how a patient would react to her medication. Sudden medications are FDA approved for weight loss and there is also off label use depending on patient's inability to afford medications in an attempt to lose weight D. Behavioral counseling was done to establish a relationship between food and an mood. Patient was provided information about local counseling and psychiatry and Dr Peacock at [facility]. We would like to cover regular topics and build on low glycemic eating exercise mindful eating, using yoga and meditation along with deep breathing and connecting with friends and family. E. MASS PAT reviewed, Patient's current medications were reviewed and opinion was given on medication that can cause weight gain and can be substituted F. Patient was assessed for risk with obesity including and not limiting to atherosclerosis heart disease stroke kidney disease, restrictive lung disease, irritable bowel syndrome and overall mortality. Risk of developing prediabetes diabetes and metabolic syndrome was discussed G. Therapeutic plan: We have decided to make therapeutic plan which would include choosing wisely on calories restricting portion getting active, tracking weight, getting good quality sleep and working on time management H. Patient will follow up in (4) weeks for weight management Of note, some information is being carried forward from prior records for informational purposes only and is being cited so that efficiency, safety and quality of the patient's care is not compromised This note was prepared using voice recognition software and direct typing Please excuse inadvertent internal sales engineer or typing errors, or uncorrected word substitutions Although every attempt has been made by the provider to proofread this document, occasional misspellings and typographical errors may still be present Due to the previous pandemic, and the use of personal protective equipment (PPE) This may decrease voice recognition accuracy Inadvertent internal sales engineer errors may occur 12/28/2023 Other obesity due to excess calories (ICD-10 - E66.09) #Weight Management 12/28/2023 zepbound 2.5mg Total time spent today was 30 minutes of which greater than 50% was spent on coordinating and counseling Patient has been found to be obese with a BMI of (36). Patient has class (2) obesity. We are a board certified obesity and weight management practice Patient has trialed behavioral modification, dietary restrictions and exercise for a minimum of 6 months The most recent [place] [employer] endocrinologists and [place] [employer] guidelines recommend patients who have overweight BMI or obesity BMI, who also have metabolic syndrome, prediabetes, or at risk of developing type 2 diabetes should aim for a weight loss goal of at least 10% of the baseline body weight Patient counseled regarding effects of GLP/GIP-1 agonists, and other FDA approved wgt loss meds with regards to a multifactorial approach of weight loss as mentioned above and not solely appetite suppression. We have discussed the mechanism of GLP-1's/GIP, dual incretins, appetitite suppressants I think this would be fantastic option for her given her metabolic workup and body composition We have discussed the risks and benefits and side effects including/and not limited to Sarcopenia, intestinal obstruction, constipation, nausea, lethargy, headache Discussed importance of protein consumption for muscle maintenance as well as strength and resistance training ,probiotics, B12 complex biotin , iron and other nutrients, To help avoid telogen effluvium We have discussed the lifelong requirement of nutritional supplementation And adherence to an exercise regimen as well as importance of follow-up The patient understands and agrees There is no history of medullary thyroid cancer or multiple endocrine neoplasia There is also no history of cardiovascular disease, hypertension, palpitations, or arrhythmias In the setting of potential stimulant/amphetamin e use such as phentermine We have also discussed risks and benefits, and the use of compounded medications to help offset the national shortages as well as financial implications vs trade name drugs Patient was reassured and welcomed to the practice. We discussed that we stress a hollistic medical approach with emphasis on lifestyle modification. Patient was informed that a healthy lifestyle with exercise and good eating habits can help reduce his risk of medical complications. He is explained that obesity increases his risk of diabetes, cardiovascular disease, or organ damage. We spent a lot of time discussing the relationship between food, exercise, sleep, mental health and obesity. Patient was counseled on the importance EATING local, organic food when possible. Patient was educated on clean 15 and dirty dozen. I provided information about reading books called The Food Rules by Chacho Hinojosa and Eat Fat Get Lean by Dr Lopez Dietz. Self education is important in the journey for weight management. Patient was offered diagnostic testing. We want to measure visceral adiposity, advanced body composition, adverse lipids, fatty acid balance, risk for heart disease and atherosclerosis, markers of inflammation and genetic susceptibility. Patient was counseled on weight management and was advised to lose weight using A. Meal Replacement Products We discussed the lifelong requirement of nutritional supplementation and adherence to an exercise regimen as well as importance of dietary follow-up Patient was educated on the replacement products called optifast. This is a good way of taking fixed amount of calories. It has been shown in studies to be ineffective weight management tool. We also recommend maintaining adequate protein intake and muscle composition, 1.5mg/kg This however has to be coupled with lifestyle intervention as well as laboratory data and EKG monitoring. It is impossible to know how a person will tolerate complete meal replacement. The side effects of meal replacement and weight loss could include syncopal attacks, dizziness, gallstones, potential cholecystectomy, possible heart attack and even . The benefits of meal replacement would be potential weight loss but no guarantees can be made. Meal replacement products are not covered by insurance. Once the patient has bought these products we cannot return them B. Lifestyle management which includes several strategies as below 1. Eat a low carbohydrate good fat good protein diet. Eliminate refined carbohydrates from the diet. Continue blood sugar and sugared beverages. Eat local organic when possible. Cook your own meals. Read food labels. None about healthy snacks. Portion control and food with low glycemic index 2. Exercise regularly. Try to get at least 6000 steps a day. Use a predominant to track activity level. Consider using apps like BUKA, myfitnesspal, lose it, stick as needed for self-monitoring and weight management. Consider group exercises. Consider hiring a personal financial advisor. Regular exercise is harrison to sustainable health and prevents as a buffer against weight regain 3. Sleep is most important for healing. Tried to sleep at least 8 hours a night. A good quality sleep needs a sleep ritual with ideal room temperature of around 68. It might help to take a shower and have no electronics in the room and sleep in a very dark room without artificial light. Start her sleep routine and get up early in the morning and go to bed on time 4. Make a social connection. Surround yourself with positive people with positive energy. Connect with friends and family. 5. Get into the habit of meditating and mindfulness while doing everything. 6. Go outside and connect with nature. C. Prescription medications Patient was educated on the use of prescription medications for medical weight loss. This is a growing list and includes phentermine, Topamax,Qsymia, contrave, belviq and saxenda. All prescription medications could have side effects including but not limited to kidney stones, seizure disorder cardiac arrhythmias heart attack pancreatitis etc. etc.. Patient was encouraged to read the prescription insert and have coaching with their pharmacist and make an informed decision about taking medication and know that these medications are being prescribed with good intentions and we do not know how a patient would react to her medication. Sudden medications are FDA approved for weight loss and there is also off label use depending on patient's inability to afford medications in an attempt to lose weight D. Behavioral counseling was done to establish a relationship between food and an mood. Patient was provided information about local counseling and psychiatry and Dr Peacock at [facility]. We would like to cover regular topics and build on low glycemic eating exercise mindful eating, using yoga and meditation along with deep breathing and connecting with friends and family. E. MASS PAT reviewed, Patient's current medications were reviewed and opinion was given on medication that can cause weight gain and can be substituted F. Patient was assessed for risk with obesity including and not limiting to atherosclerosis heart disease stroke kidney disease, restrictive lung disease, irritable bowel syndrome and overall mortality. Risk of developing prediabetes diabetes and metabolic syndrome was discussed G. Therapeutic plan: We have decided to make therapeutic plan which would include choosing wisely on calories restricting portion getting active, tracking weight, getting good quality sleep and working on time management H. Patient will follow up in (4) weeks for weight management Of note, some information is being carried forward from prior records for informational purposes only and is being cited so that efficiency, safety and quality of the patient's care is not compromised This note was prepared using voice recognition software and direct typing Please excuse inadvertent internal sales engineer or typing errors, or uncorrected word substitutions Although every attempt has been made by the provider to proofread this document, occasional misspellings and typographical errors may still be present Due to the previous pandemic, and the use of personal protective equipment (PPE) This may decrease voice recognition accuracy Inadvertent internal sales engineer errors may occur 04/30/2024 Other obesity due to excess calories (ICD-10 - E66.09) #Weight Management 04/30/2024 incr zepbound 12.5mg Total time spent today was 30 minutes of which greater than 50% was spent on coordinating and counseling Patient has been found to be obese with a BMI of (35). Patient has class (2) obesity. We are a board certified obesity and weight management practice Patient has trialed behavioral modification, dietary restrictions and exercise for a minimum of 6 months The most recent [place] [employer]ocrinologists and [place] [employer] guidelines recommend patients who have overweight BMI or obesity BMI, who also have metabolic syndrome, prediabetes, or at risk of developing type 2 diabetes should aim for a weight loss goal of at least 10% of the baseline body weight Patient counseled regarding effects of GLP/GIP-1 agonists, and other FDA approved wgt loss meds with regards to a multifactorial approach of weight loss as mentioned above and not solely appetite suppression. We have discussed the mechanism of GLP-1's/GIP, dual incretins, appetitite suppressants I think this would be fantastic option for her given her metabolic workup and body composition We have discussed the risks and benefits and side effects including/and not limited to Sarcopenia, intestinal obstruction, constipation, nausea, lethargy, headache Discussed importance of protein consumption for muscle maintenance as well as strength and resistance training ,probiotics, B12 complex biotin , iron and other nutrients, To help avoid telogen effluvium We have discussed the lifelong requirement of nutritional supplementation And adherence to an exercise regimen as well as importance of follow-up The patient understands and agrees There is no history of medullary thyroid cancer or multiple endocrine neoplasia There is also no history of cardiovascular disease, hypertension, palpitations, or arrhythmias In the setting of potential stimulant/amphetamin e use such as phentermine We have also discussed risks and benefits, and the use of compounded medications to help offset the national shortages as well as financial implications vs trade name drugs Patient was reassured and welcomed to the practice. We discussed that we stress a hollistic medical approach with emphasis on lifestyle modification. Patient was informed that a healthy lifestyle with exercise and good eating habits can help reduce his risk of medical complications. He is explained that obesity increases his risk of diabetes, cardiovascular disease, or organ damage. We spent a lot of time discussing the relationship between food, exercise, sleep, mental health and obesity. Patient was counseled on the importance EATING local, organic food when possible. Patient was educated on clean 15 and dirty dozen. I provided information about reading books called The Food Rules by Chacho Hinojosa and Eat Fat Get Lean by Dr Lopez Dietz. Self education is important in the journey for weight management. Patient was offered diagnostic testing. We want to measure visceral adiposity, advanced body composition, adverse lipids, fatty acid balance, risk for heart disease and atherosclerosis, markers of inflammation and genetic susceptibility. Patient was counseled on weight management and was advised to lose weight using A. Meal Replacement Products We discussed the lifelong requirement of nutritional supplementation and adherence to an exercise regimen as well as importance of dietary follow-up Patient was educated on the replacement products called optifast. This is a good way of taking fixed amount of calories. It has been shown in studies to be ineffective weight management tool. We also recommend maintaining adequate protein intake and muscle composition, 1.5mg/kg This however has to be coupled with lifestyle intervention as well as laboratory data and EKG monitoring. It is impossible to know how a person will tolerate complete meal replacement. The side effects of meal replacement and weight loss could include syncopal attacks, dizziness, gallstones, potential cholecystectomy, possible heart attack and even . The benefits of meal replacement would be potential weight loss but no guarantees can be made. Meal replacement products are not covered by insurance. Once the patient has bought these products we cannot return them B. Lifestyle management which includes several strategies as below 1. Eat a low carbohydrate good fat good protein diet. Eliminate refined carbohydrates from the diet. Continue blood sugar and sugared beverages. Eat local organic when possible. Cook your own meals. Read food labels. None about healthy snacks. Portion control and food with low glycemic index 2. Exercise regularly. Try to get at least 6000 steps a day. Use a predominant to track activity level. Consider using apps like BUKA, [employer] Labspal, lose it, stick as needed for self-monitoring and weight management. Consider group exercises. Consider hiring a personal financial advisor. Regular exercise is harrison to sustainable health and prevents as a buffer against weight regain 3. Sleep is most important for healing. Tried to sleep at least 8 hours a night. A good quality sleep needs a sleep ritual with ideal room temperature of around 68. It might help to take a shower and have no electronics in the room and sleep in a very dark room without artificial light. Start her sleep routine and get up early in the morning and go to bed on time 4. Make a social connection. Surround yourself with positive people with positive energy. Connect with friends and family. 5. Get into the habit of meditating and mindfulness while doing everything. 6. Go outside and connect with nature. C. Prescription medications Patient was educated on the use of prescription medications for medical weight loss. This is a growing list and includes phentermine, Topamax,Qsymia, contrave, belviq and saxenda. All prescription medications could have side effects including but not limited to kidney stones, seizure disorder cardiac arrhythmias heart attack pancreatitis etc. etc.. Patient was encouraged to read the prescription insert and have coaching with their pharmacist and make an informed decision about taking medication and know that these medications are being prescribed with good intentions and we do not know how a patient would react to her medication. Sudden medications are FDA approved for weight loss and there is also off label use depending on patient's inability to afford medications in an attempt to lose weight D. Behavioral counseling was done to establish a relationship between food and an mood. Patient was provided information about local counseling and psychiatry and Dr Peacock at [facility]. We would like to cover regular topics and build on low glycemic eating exercise mindful eating, using yoga and meditation along with deep breathing and connecting with friends and family. E. MASS PAT reviewed, Patient's current medications were reviewed and opinion was given on medication that can cause weight gain and can be substituted F. Patient was assessed for risk with obesity including and not limiting to atherosclerosis heart disease stroke kidney disease, restrictive lung disease, irritable bowel syndrome and overall mortality. Risk of developing prediabetes diabetes and metabolic syndrome was discussed G. Therapeutic plan: We have decided to make therapeutic plan which would include choosing wisely on calories restricting portion getting active, tracking weight, getting good quality sleep and working on time management H. Patient will follow up in (4) weeks for weight management Of note, some information is being carried forward from prior records for informational purposes only and is being cited so that efficiency, safety and quality of the patient's care is not compromised This note was prepared using voice recognition software and direct typing Please excuse inadvertent internal sales engineer or typing errors, or uncorrected word substitutions Although every attempt has been made by the provider to proofread this document, occasional misspellings and typographical errors may still be present Due to the previous pandemic, and the use of personal protective equipment (PPE) This may decrease voice recognition accuracy Inadvertent internal sales engineer errors may occur 04/30/2024 BMI 35.0-35.9,adult (ICD-10 - Z68.35) #Weight Management 04/30/2024 incr zepbound 12.5mg Total time spent today was 30 minutes of which greater than 50% was spent on coordinating and counseling Patient has been found to be obese with a BMI of (35). Patient has class (2) obesity. We are a board certified obesity and weight management practice Patient has trialed behavioral modification, dietary restrictions and exercise for a minimum of 6 months The most recent [place] [employer]ocrin[employer] and [place] [employer] guidelines recommend patients who have overweight BMI or obesity BMI, who also have metabolic syndrome, prediabetes, or at risk of developing type 2 diabetes should aim for a weight loss goal of at least 10% of the baseline body weight Patient counseled regarding effects of GLP/GIP-1 agonists, and other FDA approved wgt loss meds with regards to a multifactorial approach of weight loss as mentioned above and not solely appetite suppression. We have discussed the mechanism of GLP-1's/GIP, dual incretins, appetitite suppressants I think this would be fantastic option for her given her metabolic workup and body composition We have discussed the risks and benefits and side effects including/and not limited to Sarcopenia, intestinal obstruction, constipation, nausea, lethargy, headache Discussed importance of protein consumption for muscle maintenance as well as strength and resistance training ,probiotics, B12 complex biotin , iron and other nutrients, To help avoid telogen effluvium We have discussed the lifelong requirement of nutritional supplementation And adherence to an exercise regimen as well as importance of follow-up The patient understands and agrees There is no history of medullary thyroid cancer or multiple endocrine neoplasia There is also no history of cardiovascular disease, hypertension, palpitations, or arrhythmias In the setting of potential stimulant/amphetamin e use such as phentermine We have also discussed risks and benefits, and the use of compounded medications to help offset the national shortages as well as financial implications vs trade name drugs Patient was reassured and welcomed to the practice. We discussed that we stress a hollistic medical approach with emphasis on lifestyle modification. Patient was informed that a healthy lifestyle with exercise and good eating habits can help reduce his risk of medical complications. He is explained that obesity increases his risk of diabetes, cardiovascular disease, or organ damage. We spent a lot of time discussing the relationship between food, exercise, sleep, mental health and obesity. Patient was counseled on the importance EATING local, organic food when possible. Patient was educated on clean 15 and dirty dozen. I provided information about reading books called The Food Rules by Chacho Hinojosa and Eat Fat Get Lean by Dr Lopez Dietz. Self education is important in the journey for weight management. Patient was offered diagnostic testing. We want to measure visceral adiposity, advanced body composition, adverse lipids, fatty acid balance, risk for heart disease and atherosclerosis, markers of inflammation and genetic susceptibility. Patient was counseled on weight management and was advised to lose weight using A. Meal Replacement Products We discussed the lifelong requirement of nutritional supplementation and adherence to an exercise regimen as well as importance of dietary follow-up Patient was educated on the replacement products called optifast. This is a good way of taking fixed amount of calories. It has been shown in studies to be ineffective weight management tool. We also recommend maintaining adequate protein intake and muscle composition, 1.5mg/kg This however has to be coupled with lifestyle intervention as well as laboratory data and EKG monitoring. It is impossible to know how a person will tolerate complete meal replacement. The side effects of meal replacement and weight loss could include syncopal attacks, dizziness, gallstones, potential cholecystectomy, possible heart attack and even . The benefits of meal replacement would be potential weight loss but no guarantees can be made. Meal replacement products are not covered by insurance. Once the patient has bought these products we cannot return them B. Lifestyle management which includes several strategies as below 1. Eat a low carbohydrate good fat good protein diet. Eliminate refined carbohydrates from the diet. Continue blood sugar and sugared beverages. Eat local organic when possible. Cook your own meals. Read food labels. None about healthy snacks. Portion control and food with low glycemic index 2. Exercise regularly. Try to get at least 6000 steps a day. Use a predominant to track activity level. Consider using apps like BUKA, [employer], lose it, stick as needed for self-monitoring and weight management. Consider group exercises. Consider hiring a personal financial advisor. Regular exercise is harrison to sustainable health and prevents as a buffer against weight regain 3. Sleep is most important for healing. Tried to sleep at least 8 hours a night. A good quality sleep needs a sleep ritual with ideal room temperature of around 68. It might help to take a shower and have no electronics in the room and sleep in a very dark room without artificial light. Start her sleep routine and get up early in the morning and go to bed on time 4. Make a social connection. Surround yourself with positive people with positive energy. Connect with friends and family. 5. Get into the habit of meditating and mindfulness while doing everything. 6. Go outside and connect with nature. C. Prescription medications Patient was educated on the use of prescription medications for medical weight loss. This is a growing list and includes phentermine, Topamax,Qsymia, contrave, belviq and saxenda. All prescription medications could have side effects including but not limited to kidney stones, seizure disorder cardiac arrhythmias heart attack pancreatitis etc. etc.. Patient was encouraged to read the prescription insert and have coaching with their pharmacist and make an informed decision about taking medication and know that these medications are being prescribed with good intentions and we do not know how a patient would react to her medication. Sudden medications are FDA approved for weight loss and there is also off label use depending on patient's inability to afford medications in an attempt to lose weight D. Behavioral counseling was done to establish a relationship between food and an mood. Patient was provided information about local counseling and psychiatry and Dr Peacock at [facility]. We would like to cover regular topics and build on low glycemic eating exercise mindful eating, using yoga and meditation along with deep breathing and connecting with friends and family. E. MASS PAT reviewed, Patient's current medications were reviewed and opinion was given on medication that can cause weight gain and can be substituted F. Patient was assessed for risk with obesity including and not limiting to atherosclerosis heart disease stroke kidney disease, restrictive lung disease, irritable bowel syndrome and overall mortality. Risk of developing prediabetes diabetes and metabolic syndrome was discussed G. Therapeutic plan: We have decided to make therapeutic plan which would include choosing wisely on calories restricting portion getting active, tracking weight, getting good quality sleep and working on time management H. Patient will follow up in (4) weeks for weight management Of note, some information is being carried forward from prior records for informational purposes only and is being cited so that efficiency, safety and quality of the patient's care is not compromised This note was prepared using voice recognition software and direct typing Please excuse inadvertent internal sales engineer or typing errors, or uncorrected word substitutions Although every attempt has been made by the provider to proofread this document, occasional misspellings and typographical errors may still be present Due to the previous pandemic, and the use of personal protective equipment (PPE) This may decrease voice recognition accuracy Inadvertent internal sales engineer errors may occur 05/28/2024 BMI 36.0-36.9,adult (ICD-10 - Z68.36) Patient is here for weight management follow-up. [...] and mindful eating. Particular focus was on increasing resistance training into routine. We discussed modalities of doing so including using ankle and wrist weights been walking and using small 2.5 to 5 pound weights to train upper and lower body.. Total time spent with 30 minutes with greater than 50% spent on counseling and coordinating care. 05/28/2024: Weight 198 pounds, BMI 36.21. Seca scan unable to be completed as there [...] All patient questions answered at this time. # Asthma: Patient is asymptomatic in office [...] Dictation was accomplished with the use of [employer] voice recognition software, which is prone to medical misidentifications and grammatical errors. This are unintentional and the practitioner does try to identify and correct these, but some could still be present. Please do not hesitate to contact practitioner for clarification. 05/28/2024 Adult-onset obesity (ICD-10 - E66.9) Patient is [...] and mindful eating. Particular focus was on increasing resistance training into routine. We discussed modalities of doing so including using ankle and wrist weights been walking and using small 2.5 to 5 pound weights to train upper and lower body.. Total time spent with 30 minutes with greater than 50% spent on counseling and coordinating care. 05/28/2024: Weight 198 pounds, BMI 36.21. Seca scan unable to be completed as there [...] All patient questions answered at this time. # Asthma: Patient is asymptomatic in office [...] Dictation was accomplished with the use of [employer] voice recognition software, which is prone to medical misidentifications and grammatical errors. This are unintentional and the practitioner does try to identify and correct these, but some could still be present. Please do not hesitate to contact practitioner for clarification. 07/23/2024 BMI 35.0-35.9,adult (ICD-10 - Z68.35) Patient [...] resistance training through use of apps like [employer]. Total time spent with 30 minutes with [...] Dictation was accomplished with the use of [employer] voice recognition software, which is prone to [...] resistance training through use of apps like [employer]. Total time spent with 30 minutes with [...] Dictation was accomplished with the use of Bi[employer]ontrol voice recognition software, which is prone to [...] resistance training through use of apps like [employer]. Total time spent with 30 minutes with [...] Dictation was accomplished with the use of [employer] voice recognition software, which is prone to medical misidentifications and grammatical errors. This are unintentional and the practitioner does try to identify and correct these, but some could still be present. Please do not hesitate to contact practitioner for clarification. 12/28/2023 Chronic obstructive asthma (ICD-10 - J44.89) #Weight Management 12/28/2023 zepbound 2.5mg Total time spent today was 30 minutes of which greater than 50% was spent on coordinating and counseling Patient has been found to be obese with a BMI of (36). Patient has class (2) obesity. We are a board certified obesity and weight management practice Patient has trialed behavioral modification, dietary restrictions and exercise for a minimum of 6 months The most recent [place] [employer] endocrinologists and [place] [employer] guidelines recommend patients who have overweight BMI or obesity BMI, who also have metabolic syndrome, prediabetes, or at risk of developing type 2 diabetes should aim for a weight loss goal of at least 10% of the baseline body weight Patient counseled regarding effects of GLP/GIP-1 agonists, and other FDA approved wgt loss meds with regards to a multifactorial approach of weight loss as mentioned above and not solely appetite suppression. We have discussed the mechanism of GLP-1's/GIP, dual incretins, appetitite suppressants I think this would be fantastic option for her given her metabolic workup and body composition We have discussed the risks and benefits and side effects including/and not limited to Sarcopenia, intestinal obstruction, constipation, nausea, lethargy, headache Discussed importance of protein consumption for muscle maintenance as well as strength and resistance training ,probiotics, B12 complex biotin , iron and other nutrients, To help avoid telogen effluvium We have discussed the lifelong requirement of nutritional supplementation And adherence to an exercise regimen as well as importance of follow-up The patient understands and agrees There is no history of medullary thyroid cancer or multiple endocrine neoplasia There is also no history of cardiovascular disease, hypertension, palpitations, or arrhythmias In the setting of potential stimulant/amphetamin e use such as phentermine We have also discussed risks and benefits, and the use of compounded medications to help offset the national shortages as well as financial implications vs trade name drugs Patient was reassured and welcomed to the practice. We discussed that we stress a hollistic medical approach with emphasis on lifestyle modification. Patient was informed that a healthy lifestyle with exercise and good eating habits can help reduce his risk of medical complications. He is explained that obesity increases his risk of diabetes, cardiovascular disease, or organ damage. We spent a lot of time discussing the relationship between food, exercise, sleep, mental health and obesity. Patient was counseled on the importance EATING local, organic food when possible. Patient was educated on clean 15 and dirty dozen. I provided information about reading books called The Food Rules by Chacho Hinojosa and Eat Fat Get Lean by Dr Lopez Dietz. Self education is important in the journey for weight management. Patient was offered diagnostic testing. We want to measure visceral adiposity, advanced body composition, adverse lipids, fatty acid balance, risk for heart disease and atherosclerosis, markers of inflammation and genetic susceptibility. Patient was counseled on weight management and was advised to lose weight using A. Meal Replacement Products We discussed the lifelong requirement of nutritional supplementation and adherence to an exercise regimen as well as importance of dietary follow-up Patient was educated on the replacement products called optifast. This is a good way of taking fixed amount of calories. It has been shown in studies to be ineffective weight management tool. We also recommend maintaining adequate protein intake and muscle composition, 1.5mg/kg This however has to be coupled with lifestyle intervention as well as laboratory data and EKG monitoring. It is impossible to know how a person will tolerate complete meal replacement. The side effects of meal replacement and weight loss could include syncopal attacks, dizziness, gallstones, potential cholecystectomy, possible heart attack and even . The benefits of meal replacement would be potential weight loss but no guarantees can be made. Meal replacement products are not covered by insurance. Once the patient has bought these products we cannot return them B. Lifestyle management which includes several strategies as below 1. Eat a low carbohydrate good fat good protein diet. Eliminate refined carbohydrates from the diet. Continue blood sugar and sugared beverages. Eat local organic when possible. Cook your own meals. Read food labels. None about healthy snacks. Portion control and food with low glycemic index 2. Exercise regularly. Try to get at least 6000 steps a day. Use a predominant to track activity level. Consider using apps like BUKA, myfitnesspal, lose it, stick as needed for self-monitoring and weight management. Consider group exercises. Consider hiring a personal financial advisor. Regular exercise is harrison to sustainable health and prevents as a buffer against weight regain 3. Sleep is most important for healing. Tried to sleep at least 8 hours a night. A good quality sleep needs a sleep ritual with ideal room temperature of around 68. It might help to take a shower and have no electronics in the room and sleep in a very dark room without artificial light. Start her sleep routine and get up early in the morning and go to bed on time 4. Make a social connection. Surround yourself with positive people with positive energy. Connect with friends and family. 5. Get into the habit of meditating and mindfulness while doing everything. 6. Go outside and connect with nature. C. Prescription medications Patient was educated on the use of prescription medications for medical weight loss. This is a growing list and includes phentermine, Topamax,Qsymia, contrave, belviq and saxenda. All prescription medications could have side effects including but not limited to kidney stones, seizure disorder cardiac arrhythmias heart attack pancreatitis etc. etc.. Patient was encouraged to read the prescription insert and have coaching with their pharmacist and make an informed decision about taking medication and know that these medications are being prescribed with good intentions and we do not know how a patient would react to her medication. Sudden medications are FDA approved for weight loss and there is also off label use depending on patient's inability to afford medications in an attempt to lose weight D. Behavioral counseling was done to establish a relationship between food and an mood. Patient was provided information about local counseling and psychiatry and Dr Peacock at [facility]. We would like to cover regular topics and build on low glycemic eating exercise mindful eating, using yoga and meditation along with deep breathing and connecting with friends and family. E. MASS PAT reviewed, Patient's current medications were reviewed and opinion was given on medication that can cause weight gain and can be substituted F. Patient was assessed for risk with obesity including and not limiting to atherosclerosis heart disease stroke kidney disease, restrictive lung disease, irritable bowel syndrome and overall mortality. Risk of developing prediabetes diabetes and metabolic syndrome was discussed G. Therapeutic plan: We have decided to make therapeutic plan which would include choosing wisely on calories restricting portion getting active, tracking weight, getting good quality sleep and working on time management H. Patient will follow up in (4) weeks for weight management Of note, some information is being carried forward from prior records for informational purposes only and is being cited so that efficiency, safety and quality of the patient's care is not compromised This note was prepared using voice recognition software and direct typing Please excuse inadvertent internal sales engineer or typing errors, or uncorrected word substitutions Although every attempt has been made by the provider to proofread this document, occasional misspellings and typographical errors may still be present Due to the previous pandemic, and the use of personal protective equipment (PPE) This may decrease voice recognition accuracy Inadvertent internal sales engineer errors may occur 05/28/2024 Mild intermittent asthma, uncomplicated (ICD-10 - J45.20) [...] and mindful eating. Particular focus was on increasing resistance training into routine. We discussed modalities of doing so including using ankle and wrist weights been walking and using small 2.5 to 5 pound weights to train upper and lower body.. Total time spent with 30 minutes with greater than 50% spent on counseling and coordinating care. 05/28/2024: Weight 198 pounds, BMI 36.21. Seca scan unable to be completed as there [...] All patient questions answered at this time. # Asthma: Patient is asymptomatic in office [...] Dictation was accomplished with the use of [employer] voice recognition software, which is prone to medical misidentifications and grammatical errors. This are unintentional and the practitioner does try to identify and correct these, but some could still be present. Please do not hesitate to contact practitioner for clarification. 04/30/2024 Dietary counseling and surveillance (ICD-10 - Z71.3) #Weight Management 04/30/2024 incr zepbound 12.5mg Total time spent today was 30 minutes of which greater than 50% was spent on coordinating and counseling Patient has been found to be obese with a BMI of (35). Patient has class (2) obesity. We are a board certified obesity and weight management practice Patient has trialed behavioral modification, dietary restrictions and exercise for a minimum of 6 months The most recent [place] [employer]ocrin[employer] and [place] [employer] guidelines recommend patients who have overweight BMI or obesity BMI, who also have metabolic syndrome, prediabetes, or at risk of developing type 2 diabetes should aim for a weight loss goal of at least 10% of the baseline body weight Patient counseled regarding effects of GLP/GIP-1 agonists, and other FDA approved wgt loss meds with regards to a multifactorial approach of weight loss as mentioned above and not solely appetite suppression. We have discussed the mechanism of GLP-1's/GIP, dual incretins, appetitite suppressants I think this would be fantastic option for her given her metabolic workup and body composition We have discussed the risks and benefits and side effects including/and not limited to Sarcopenia, intestinal obstruction, constipation, nausea, lethargy, headache Discussed importance of protein consumption for muscle maintenance as well as strength and resistance training ,probiotics, B12 complex biotin , iron and other nutrients, To help avoid telogen effluvium We have discussed the lifelong requirement of nutritional supplementation And adherence to an exercise regimen as well as importance of follow-up The patient understands and agrees There is no history of medullary thyroid cancer or multiple endocrine neoplasia There is also no history of cardiovascular disease, hypertension, palpitations, or arrhythmias In the setting of potential stimulant/amphetamin e use such as phentermine We have also discussed risks and benefits, and the use of compounded medications to help offset the national shortages as well as financial implications vs trade name drugs Patient was reassured and welcomed to the practice. We discussed that we stress a hollistic medical approach with emphasis on lifestyle modification. Patient was informed that a healthy lifestyle with exercise and good eating habits can help reduce his risk of medical complications. He is explained that obesity increases his risk of diabetes, cardiovascular disease, or organ damage. We spent a lot of time discussing the relationship between food, exercise, sleep, mental health and obesity. Patient was counseled on the importance EATING local, organic food when possible. Patient was educated on clean 15 and dirty dozen. I provided information about reading books called The Food Rules by Chacho Hinojosa and Eat Fat Get Lean by Dr Lopez Dietz. Self education is important in the journey for weight management. Patient was offered diagnostic testing. We want to measure visceral adiposity, advanced body composition, adverse lipids, fatty acid balance, risk for heart disease and atherosclerosis, markers of inflammation and genetic susceptibility. Patient was counseled on weight management and was advised to lose weight using A. Meal Replacement Products We discussed the lifelong requirement of nutritional supplementation and adherence to an exercise regimen as well as importance of dietary follow-up Patient was educated on the replacement products called optifast. This is a good way of taking fixed amount of calories. It has been shown in studies to be ineffective weight management tool. We also recommend maintaining adequate protein intake and muscle composition, 1.5mg/kg This however has to be coupled with lifestyle intervention as well as laboratory data and EKG monitoring. It is impossible to know how a person will tolerate complete meal replacement. The side effects of meal replacement and weight loss could include syncopal attacks, dizziness, gallstones, potential cholecystectomy, possible heart attack and even . The benefits of meal replacement would be potential weight loss but no guarantees can be made. Meal replacement products are not covered by insurance. Once the patient has bought these products we cannot return them B. Lifestyle management which includes several strategies as below 1. Eat a low carbohydrate good fat good protein diet. Eliminate refined carbohydrates from the diet. Continue blood sugar and sugared beverages. Eat local organic when possible. Cook your own meals. Read food labels. None about healthy snacks. Portion control and food with low glycemic index 2. Exercise regularly. Try to get at least 6000 steps a day. Use a predominant to track activity level. Consider using apps like BUKA, Recorridopal, lose it, stick as needed for self-monitoring and weight management. Consider group exercises. Consider hiring a personal financial advisor. Regular exercise is harrison to sustainable health and prevents as a buffer against weight regain 3. Sleep is most important for healing. Tried to sleep at least 8 hours a night. A good quality sleep needs a sleep ritual with ideal room temperature of around 68. It might help to take a shower and have no electronics in the room and sleep in a very dark room without artificial light. Start her sleep routine and get up early in the morning and go to bed on time 4. Make a social connection. Surround yourself with positive people with positive energy. Connect with friends and family. 5. Get into the habit of meditating and mindfulness while doing everything. 6. Go outside and connect with nature. C. Prescription medications Patient was educated on the use of prescription medications for medical weight loss. This is a growing list and includes phentermine, Topamax,Qsymia, contrave, belviq and saxenda. All prescription medications could have side effects including but not limited to kidney stones, seizure disorder cardiac arrhythmias heart attack pancreatitis etc. etc.. Patient was encouraged to read the prescription insert and have coaching with their pharmacist and make an informed decision about taking medication and know that these medications are being prescribed with good intentions and we do not know how a patient would react to her medication. Sudden medications are FDA approved for weight loss and there is also off label use depending on patient's inability to afford medications in an attempt to lose weight D. Behavioral counseling was done to establish a relationship between food and an mood. Patient was provided information about local counseling and psychiatry and Dr Peacock at [facility]. We would like to cover regular topics and build on low glycemic eating exercise mindful eating, using yoga and meditation along with deep breathing and connecting with friends and family. E. MASS PAT reviewed, Patient's current medications were reviewed and opinion was given on medication that can cause weight gain and can be substituted F. Patient was assessed for risk with obesity including and not limiting to atherosclerosis heart disease stroke kidney disease, restrictive lung disease, irritable bowel syndrome and overall mortality. Risk of developing prediabetes diabetes and metabolic syndrome was discussed G. Therapeutic plan: We have decided to make therapeutic plan which would include choosing wisely on calories restricting portion getting active, tracking weight, getting good quality sleep and working on time management H. Patient will follow up in (4) weeks for weight management Of note, some information is being carried forward from prior records for informational purposes only and is being cited so that efficiency, safety and quality of the patient's care is not compromised This note was prepared using voice recognition software and direct typing Please excuse inadvertent internal sales engineer or typing errors, or uncorrected word substitutions Although every attempt has been made by the provider to proofread this document, occasional misspellings and typographical errors may still be present Due to the previous pandemic, and the use of personal protective equipment (PPE) This may decrease voice recognition accuracy Inadvertent internal sales engineer errors may occur 02/24/2024 Chronic obstructive asthma (ICD-10 - J44.89) #Weight Management 02/24/2024 incr zepbound 7.5mg Total time spent today was 30 minutes of which greater than 50% was spent on coordinating and counseling Patient has been found to be obese with a BMI of (36). Patient has class (2) obesity. We are a board certified obesity and weight management practice Patient has trialed behavioral modification, dietary restrictions and exercise for a minimum of 6 months The most recent [place] [employer] endocrinologists and [place] [employer] guidelines recommend patients who have overweight BMI or obesity BMI, who also have metabolic syndrome, prediabetes, or at risk of developing type 2 diabetes should aim for a weight loss goal of at least 10% of the baseline body weight Patient counseled regarding effects of GLP/GIP-1 agonists, and other FDA approved wgt loss meds with regards to a multifactorial approach of weight loss as mentioned above and not solely appetite suppression. We have discussed the mechanism of GLP-1's/GIP, dual incretins, appetitite suppressants I think this would be fantastic option for her given her metabolic workup and body composition We have discussed the risks and benefits and side effects including/and not limited to Sarcopenia, intestinal obstruction, constipation, nausea, lethargy, headache Discussed importance of protein consumption for muscle maintenance as well as strength and resistance training ,probiotics, B12 complex biotin , iron and other nutrients, To help avoid telogen effluvium We have discussed the lifelong requirement of nutritional supplementation And adherence to an exercise regimen as well as importance of follow-up The patient understands and agrees There is no history of medullary thyroid cancer or multiple endocrine neoplasia There is also no history of cardiovascular disease, hypertension, palpitations, or arrhythmias In the setting of potential stimulant/amphetamin e use such as phentermine We have also discussed risks and benefits, and the use of compounded medications to help offset the national shortages as well as financial implications vs trade name drugs Patient was reassured and welcomed to the practice. We discussed that we stress a hollistic medical approach with emphasis on lifestyle modification. Patient was informed that a healthy lifestyle with exercise and good eating habits can help reduce his risk of medical complications. He is explained that obesity increases his risk of diabetes, cardiovascular disease, or organ damage. We spent a lot of time discussing the relationship between food, exercise, sleep, mental health and obesity. Patient was counseled on the importance EATING local, organic food when possible. Patient was educated on clean 15 and dirty dozen. I provided information about reading books called The Food Rules by Chacho Hinojosa and Eat Fat Get Lean by Dr Lopez Dietz. Self education is important in the journey for weight management. Patient was offered diagnostic testing. We want to measure visceral adiposity, advanced body composition, adverse lipids, fatty acid balance, risk for heart disease and atherosclerosis, markers of inflammation and genetic susceptibility. Patient was counseled on weight management and was advised to lose weight using A. Meal Replacement Products We discussed the lifelong requirement of nutritional supplementation and adherence to an exercise regimen as well as importance of dietary follow-up Patient was educated on the replacement products called optifast. This is a good way of taking fixed amount of calories. It has been shown in studies to be ineffective weight management tool. We also recommend maintaining adequate protein intake and muscle composition, 1.5mg/kg This however has to be coupled with lifestyle intervention as well as laboratory data and EKG monitoring. It is impossible to know how a person will tolerate complete meal replacement. The side effects of meal replacement and weight loss could include syncopal attacks, dizziness, gallstones, potential cholecystectomy, possible heart attack and even . The benefits of meal replacement would be potential weight loss but no guarantees can be made. Meal replacement products are not covered by insurance. Once the patient has bought these products we cannot return them B. Lifestyle management which includes several strategies as below 1. Eat a low carbohydrate good fat good protein diet. Eliminate refined carbohydrates from the diet. Continue blood sugar and sugared beverages. Eat local organic when possible. Cook your own meals. Read food labels. None about healthy snacks. Portion control and food with low glycemic index 2. Exercise regularly. Try to get at least 6000 steps a day. Use a predominant to track activity level. Consider using apps like BUKA, Recorridopal, lose it, stick as needed for self-monitoring and weight management. Consider group exercises. Consider hiring a personal financial advisor. Regular exercise is harrison to sustainable health and prevents as a buffer against weight regain 3. Sleep is most important for healing. Tried to sleep at least 8 hours a night. A good quality sleep needs a sleep ritual with ideal room temperature of around 68. It might help to take a shower and have no electronics in the room and sleep in a very dark room without artificial light. Start her sleep routine and get up early in the morning and go to bed on time 4. Make a social connection. Surround yourself with positive people with positive energy. Connect with friends and family. 5. Get into the habit of meditating and mindfulness while doing everything. 6. Go outside and connect with nature. C. Prescription medications Patient was educated on the use of prescription medications for medical weight loss. This is a growing list and includes phentermine, Topamax,Qsymia, contrave, belviq and saxenda. All prescription medications could have side effects including but not limited to kidney stones, seizure disorder cardiac arrhythmias heart attack pancreatitis etc. etc.. Patient was encouraged to read the prescription insert and have coaching with their pharmacist and make an informed decision about taking medication and know that these medications are being prescribed with good intentions and we do not know how a patient would react to her medication. Sudden medications are FDA approved for weight loss and there is also off label use depending on patient's inability to afford medications in an attempt to lose weight D. Behavioral counseling was done to establish a relationship between food and an mood. Patient was provided information about local counseling and psychiatry and Dr Peacock at [facility]. We would like to cover regular topics and build on low glycemic eating exercise mindful eating, using yoga and meditation along with deep breathing and connecting with friends and family. E. MASS PAT reviewed, Patient's current medications were reviewed and opinion was given on medication that can cause weight gain and can be substituted F. Patient was assessed for risk with obesity including and not limiting to atherosclerosis heart disease stroke kidney disease, restrictive lung disease, irritable bowel syndrome and overall mortality. Risk of developing prediabetes diabetes and metabolic syndrome was discussed G. Therapeutic plan: We have decided to make therapeutic plan which would include choosing wisely on calories restricting portion getting active, tracking weight, getting good quality sleep and working on time management H. Patient will follow up in (4) weeks for weight management Of note, some information is being carried forward from prior records for informational purposes only and is being cited so that efficiency, safety and quality of the patient's care is not compromised This note was prepared using voice recognition software and direct typing Please excuse inadvertent internal sales engineer or typing errors, or uncorrected word substitutions Although every attempt has been made by the provider to proofread this document, occasional misspellings and typographical errors may still be present Due to the previous pandemic, and the use of personal protective equipment (PPE) This may decrease voice recognition accuracy Inadvertent internal sales engineer errors may occur 11/02/2023 BMI 36.0-36.9,adult (ICD-10 - Z68.36) #Weight Management 11/01/2023 zepbound 2.5mg Total time spent today was 30 minutes of which greater than 50% was spent on coordinating and counseling Patient has been found to be obese with a BMI of (36). Patient has class (2) obesity. We are a board certified obesity and weight management practice Patient has trialed behavioral modification, dietary restrictions and exercise for a minimum of 6 months The most recent [place] [employer] endocrinologists and [place] [employer] guidelines recommend patients who have overweight BMI or obesity BMI, who also have metabolic syndrome, prediabetes, or at risk of developing type 2 diabetes should aim for a weight loss goal of at least 10% of the baseline body weight Patient counseled regarding effects of GLP/GIP-1 agonists, and other FDA approved wgt loss meds with regards to a multifactorial approach of weight loss as mentioned above and not solely appetite suppression. We have discussed the mechanism of GLP-1's/GIP, dual incretins, appetitite suppressants I think this would be fantastic option for her given her metabolic workup and body composition We have discussed the risks and benefits and side effects including/and not limited to Sarcopenia, intestinal obstruction, constipation, nausea, lethargy, headache Discussed importance of protein consumption for muscle maintenance as well as strength and resistance training ,probiotics, B12 complex biotin , iron and other nutrients, To help avoid telogen effluvium We have discussed the lifelong requirement of nutritional supplementation And adherence to an exercise regimen as well as importance of follow-up The patient understands and agrees There is no history of medullary thyroid cancer or multiple endocrine neoplasia There is also no history of cardiovascular disease, hypertension, palpitations, or arrhythmias In the setting of potential stimulant/amphetamin e use such as phentermine We have also discussed risks and benefits, and the use of compounded medications to help offset the national shortages as well as financial implications vs trade name drugs Patient was reassured and welcomed to the practice. We discussed that we stress a hollistic medical approach with emphasis on lifestyle modification. Patient was informed that a healthy lifestyle with exercise and good eating habits can help reduce his risk of medical complications. He is explained that obesity increases his risk of diabetes, cardiovascular disease, or organ damage. We spent a lot of time discussing the relationship between food, exercise, sleep, mental health and obesity. Patient was counseled on the importance EATING local, organic food when possible. Patient was educated on clean 15 and dirty dozen. I provided information about reading books called The Food Rules by Chacho Hinojosa and Eat Fat Get Lean by Dr Lopez Dietz. Self education is important in the journey for weight management. Patient was offered diagnostic testing. We want to measure visceral adiposity, advanced body composition, adverse lipids, fatty acid balance, risk for heart disease and atherosclerosis, markers of inflammation and genetic susceptibility. Patient was counseled on weight management and was advised to lose weight using A. Meal Replacement Products We discussed the lifelong requirement of nutritional supplementation and adherence to an exercise regimen as well as importance of dietary follow-up Patient was educated on the replacement products called optifast. This is a good way of taking fixed amount of calories. It has been shown in studies to be ineffective weight management tool. We also recommend maintaining adequate protein intake and muscle composition, 1.5mg/kg This however has to be coupled with lifestyle intervention as well as laboratory data and EKG monitoring. It is impossible to know how a person will tolerate complete meal replacement. The side effects of meal replacement and weight loss could include syncopal attacks, dizziness, gallstones, potential cholecystectomy, possible heart attack and even . The benefits of meal replacement would be potential weight loss but no guarantees can be made. Meal replacement products are not covered by insurance. Once the patient has bought these products we cannot return them B. Lifestyle management which includes several strategies as below 1. Eat a low carbohydrate good fat good protein diet. Eliminate refined carbohydrates from the diet. Continue blood sugar and sugared beverages. Eat local organic when possible. Cook your own meals. Read food labels. None about healthy snacks. Portion control and food with low glycemic index 2. Exercise regularly. Try to get at least 6000 steps a day. Use a predominant to track activity level. Consider using apps like BUKA, Recorridopal, lose it, stick as needed for self-monitoring and weight management. Consider group exercises. Consider hiring a personal financial advisor. Regular exercise is harrison to sustainable health and prevents as a buffer against weight regain 3. Sleep is most important for healing. Tried to sleep at least 8 hours a night. A good quality sleep needs a sleep ritual with ideal room temperature of around 68. It might help to take a shower and have no electronics in the room and sleep in a very dark room without artificial light. Start her sleep routine and get up early in the morning and go to bed on time 4. Make a social connection. Surround yourself with positive people with positive energy. Connect with friends and family. 5. Get into the habit of meditating and mindfulness while doing everything. 6. Go outside and connect with nature. C. Prescription medications Patient was educated on the use of prescription medications for medical weight loss. This is a growing list and includes phentermine, Topamax,Qsymia, contrave, belviq and saxenda. All prescription medications could have side effects including but not limited to kidney stones, seizure disorder cardiac arrhythmias heart attack pancreatitis etc. etc.. Patient was encouraged to read the prescription insert and have coaching with their pharmacist and make an informed decision about taking medication and know that these medications are being prescribed with good intentions and we do not know how a patient would react to her medication. Sudden medications are FDA approved for weight loss and there is also off label use depending on patient's inability to afford medications in an attempt to lose weight D. Behavioral counseling was done to establish a relationship between food and an mood. Patient was provided information about local counseling and psychiatry and Dr Peacock at [facility]. We would like to cover regular topics and build on low glycemic eating exercise mindful eating, using yoga and meditation along with deep breathing and connecting with friends and family. E. MASS PAT reviewed, Patient's current medications were reviewed and opinion was given on medication that can cause weight gain and can be substituted F. Patient was assessed for risk with obesity including and not limiting to atherosclerosis heart disease stroke kidney disease, restrictive lung disease, irritable bowel syndrome and overall mortality. Risk of developing prediabetes diabetes and metabolic syndrome was discussed G. Therapeutic plan: We have decided to make therapeutic plan which would include choosing wisely on calories restricting portion getting active, tracking weight, getting good quality sleep and working on time management H. Patient will follow up in (4) weeks for weight management Of note, some information is being carried forward from prior records for informational purposes only and is being cited so that efficiency, safety and quality of the patient's care is not compromised This note was prepared using voice recognition software and direct typing Please excuse inadvertent internal sales engineer or typing errors, or uncorrected word substitutions Although every attempt has been made by the provider to proofread this document, occasional misspellings and typographical errors may still be present Due to the previous pandemic, and the use of personal protective equipment (PPE) This may decrease voice recognition accuracy Inadvertent internal sales engineer errors may occur 12/28/2023 BMI 36.0-36.9,adult (ICD-10 - Z68.36) #Weight Management 12/28/2023 zepbound 2.5mg Total time spent today was 30 minutes of which greater than 50% was spent on coordinating and counseling Patient has been found to be obese with a BMI of (36). Patient has class (2) obesity. We are a board certified obesity and weight management practice Patient has trialed behavioral modification, dietary restrictions and exercise for a minimum of 6 months The most recent [place] [employer] endocrin[employer] and [place] [employer] guidelines recommend patients who have overweight BMI or obesity BMI, who also have metabolic syndrome, prediabetes, or at risk of developing type 2 diabetes should aim for a weight loss goal of at least 10% of the baseline body weight Patient counseled regarding effects of GLP/GIP-1 agonists, and other FDA approved wgt loss meds with regards to a multifactorial approach of weight loss as mentioned above and not solely appetite suppression. We have discussed the mechanism of GLP-1's/GIP, dual incretins, appetitite suppressants I think this would be fantastic option for her given her metabolic workup and body composition We have discussed the risks and benefits and side effects including/and not limited to Sarcopenia, intestinal obstruction, constipation, nausea, lethargy, headache Discussed importance of protein consumption for muscle maintenance as well as strength and resistance training ,probiotics, B12 complex biotin , iron and other nutrients, To help avoid telogen effluvium We have discussed the lifelong requirement of nutritional supplementation And adherence to an exercise regimen as well as importance of follow-up The patient understands and agrees There is no history of medullary thyroid cancer or multiple endocrine neoplasia There is also no history of cardiovascular disease, hypertension, palpitations, or arrhythmias In the setting of potential stimulant/amphetamin e use such as phentermine We have also discussed risks and benefits, and the use of compounded medications to help offset the national shortages as well as financial implications vs trade name drugs Patient was reassured and welcomed to the practice. We discussed that we stress a hollistic medical approach with emphasis on lifestyle modification. Patient was informed that a healthy lifestyle with exercise and good eating habits can help reduce his risk of medical complications. He is explained that obesity increases his risk of diabetes, cardiovascular disease, or organ damage. We spent a lot of time discussing the relationship between food, exercise, sleep, mental health and obesity. Patient was counseled on the importance EATING local, organic food when possible. Patient was educated on clean 15 and dirty dozen. I provided information about reading books called The Food Rules by Chacho Hinojosa and Eat Fat Get Lean by Dr Lopez Dietz. Self education is important in the journey for weight management. Patient was offered diagnostic testing. We want to measure visceral adiposity, advanced body composition, adverse lipids, fatty acid balance, risk for heart disease and atherosclerosis, markers of inflammation and genetic susceptibility. Patient was counseled on weight management and was advised to lose weight using A. Meal Replacement Products We discussed the lifelong requirement of nutritional supplementation and adherence to an exercise regimen as well as importance of dietary follow-up Patient was educated on the replacement products called optifast. This is a good way of taking fixed amount of calories. It has been shown in studies to be ineffective weight management tool. We also recommend maintaining adequate protein intake and muscle composition, 1.5mg/kg This however has to be coupled with lifestyle intervention as well as laboratory data and EKG monitoring. It is impossible to know how a person will tolerate complete meal replacement. The side effects of meal replacement and weight loss could include syncopal attacks, dizziness, gallstones, potential cholecystectomy, possible heart attack and even . The benefits of meal replacement would be potential weight loss but no guarantees can be made. Meal replacement products are not covered by insurance. Once the patient has bought these products we cannot return them B. Lifestyle management which includes several strategies as below 1. Eat a low carbohydrate good fat good protein diet. Eliminate refined carbohydrates from the diet. Continue blood sugar and sugared beverages. Eat local organic when possible. Cook your own meals. Read food labels. None about healthy snacks. Portion control and food with low glycemic index 2. Exercise regularly. Try to get at least 6000 steps a day. Use a predominant to track activity level. Consider using apps like BUKA, Recorridopal, lose it, stick as needed for self-monitoring and weight management. Consider group exercises. Consider hiring a personal financial advisor. Regular exercise is harrison to sustainable health and prevents as a buffer against weight regain 3. Sleep is most important for healing. Tried to sleep at least 8 hours a night. A good quality sleep needs a sleep ritual with ideal room temperature of around 68. It might help to take a shower and have no electronics in the room and sleep in a very dark room without artificial light. Start her sleep routine and get up early in the morning and go to bed on time 4. Make a social connection. Surround yourself with positive people with positive energy. Connect with friends and family. 5. Get into the habit of meditating and mindfulness while doing everything. 6. Go outside and connect with nature. C. Prescription medications Patient was educated on the use of prescription medications for medical weight loss. This is a growing list and includes phentermine, Topamax,Qsymia, contrave, belviq and saxenda. All prescription medications could have side effects including but not limited to kidney stones, seizure disorder cardiac arrhythmias heart attack pancreatitis etc. etc.. Patient was encouraged to read the prescription insert and have coaching with their pharmacist and make an informed decision about taking medication and know that these medications are being prescribed with good intentions and we do not know how a patient would react to her medication. Sudden medications are FDA approved for weight loss and there is also off label use depending on patient's inability to afford medications in an attempt to lose weight D. Behavioral counseling was done to establish a relationship between food and an mood. Patient was provided information about local counseling and psychiatry and Dr Peacock at [facility]. We would like to cover regular topics and build on low glycemic eating exercise mindful eating, using yoga and meditation along with deep breathing and connecting with friends and family. E. MASS PAT reviewed, Patient's current medications were reviewed and opinion was given on medication that can cause weight gain and can be substituted F. Patient was assessed for risk with obesity including and not limiting to atherosclerosis heart disease stroke kidney disease, restrictive lung disease, irritable bowel syndrome and overall mortality. Risk of developing prediabetes diabetes and metabolic syndrome was discussed G. Therapeutic plan: We have decided to make therapeutic plan which would include choosing wisely on calories restricting portion getting active, tracking weight, getting good quality sleep and working on time management H. Patient will follow up in (4) weeks for weight management Of note, some information is being carried forward from prior records for informational purposes only and is being cited so that efficiency, safety and quality of the patient's care is not compromised This note was prepared using voice recognition software and direct typing Please excuse inadvertent internal sales engineer or typing errors, or uncorrected word substitutions Although every attempt has been made by the provider to proofread this document, occasional misspellings and typographical errors may still be present Due to the previous pandemic, and the use of personal protective equipment (PPE) This may decrease voice recognition accuracy Inadvertent internal sales engineer errors may occur 04/30/2024 Chronic obstructive asthma (ICD-10 - J44.89) #Weight Management 04/30/2024 incr zepbound 12.5mg Total time spent today was 30 minutes of which greater than 50% was spent on coordinating and counseling Patient has been found to be obese with a BMI of (35). Patient has class (2) obesity. We are a board certified obesity and weight management practice Patient has trialed behavioral modification, dietary restrictions and exercise for a minimum of 6 months The most recent [place] [employer] clinical endocrinologists and [place] [employer] guidelines recommend patients who have overweight BMI or obesity BMI, who also have metabolic syndrome, prediabetes, or at risk of developing type 2 diabetes should aim for a weight loss goal of at least 10% of the baseline body weight Patient counseled regarding effects of GLP/GIP-1 agonists, and other FDA approved wgt loss meds with regards to a multifactorial approach of weight loss as mentioned above and not solely appetite suppression. We have discussed the mechanism of GLP-1's/GIP, dual incretins, appetitite suppressants I think this would be fantastic option for her given her metabolic workup and body composition We have discussed the risks and benefits and side effects including/and not limited to Sarcopenia, intestinal obstruction, constipation, nausea, lethargy, headache Discussed importance of protein consumption for muscle maintenance as well as strength and resistance training ,probiotics, B12 complex biotin , iron and other nutrients, To help avoid telogen effluvium We have discussed the lifelong requirement of nutritional supplementation And adherence to an exercise regimen as well as importance of follow-up The patient understands and agrees There is no history of medullary thyroid cancer or multiple endocrine neoplasia There is also no history of cardiovascular disease, hypertension, palpitations, or arrhythmias In the setting of potential stimulant/amphetamin e use such as phentermine We have also discussed risks and benefits, and the use of compounded medications to help offset the national shortages as well as financial implications vs trade name drugs Patient was reassured and welcomed to the practice. We discussed that we stress a hollistic medical approach with emphasis on lifestyle modification. Patient was informed that a healthy lifestyle with exercise and good eating habits can help reduce his risk of medical complications. He is explained that obesity increases his risk of diabetes, cardiovascular disease, or organ damage. We spent a lot of time discussing the relationship between food, exercise, sleep, mental health and obesity. Patient was counseled on the importance EATING local, organic food when possible. Patient was educated on clean 15 and dirty dozen. I provided information about reading books called The Food Rules by Chacho Hinojosa and Eat Fat Get Lean by Dr Lopez Dietz. Self education is important in the journey for weight management. Patient was offered diagnostic testing. We want to measure visceral adiposity, advanced body composition, adverse lipids, fatty acid balance, risk for heart disease and atherosclerosis, markers of inflammation and genetic susceptibility. Patient was counseled on weight management and was advised to lose weight using A. Meal Replacement Products We discussed the lifelong requirement of nutritional supplementation and adherence to an exercise regimen as well as importance of dietary follow-up Patient was educated on the replacement products called optifast. This is a good way of taking fixed amount of calories. It has been shown in studies to be ineffective weight management tool. We also recommend maintaining adequate protein intake and muscle composition, 1.5mg/kg This however has to be coupled with lifestyle intervention as well as laboratory data and EKG monitoring. It is impossible to know how a person will tolerate complete meal replacement. The side effects of meal replacement and weight loss could include syncopal attacks, dizziness, gallstones, potential cholecystectomy, possible heart attack and even . The benefits of meal replacement would be potential weight loss but no guarantees can be made. Meal replacement products are not covered by insurance. Once the patient has bought these products we cannot return them B. Lifestyle management which includes several strategies as below 1. Eat a low carbohydrate good fat good protein diet. Eliminate refined carbohydrates from the diet. Continue blood sugar and sugared beverages. Eat local organic when possible. Cook your own meals. Read food labels. None about healthy snacks. Portion control and food with low glycemic index 2. Exercise regularly. Try to get at least 6000 steps a day. Use a predominant to track activity level. Consider using apps like BUKA, myFlirtatious Labspal, lose it, stick as needed for self-monitoring and weight management. Consider group exercises. Consider hiring a personal financial advisor. Regular exercise is harrison to sustainable health and prevents as a buffer against weight regain 3. Sleep is most important for healing. Tried to sleep at least 8 hours a night. A good quality sleep needs a sleep ritual with ideal room temperature of around 68. It might help to take a shower and have no electronics in the room and sleep in a very dark room without artificial light. Start her sleep routine and get up early in the morning and go to bed on time 4. Make a social connection. Surround yourself with positive people with positive energy. Connect with friends and family. 5. Get into the habit of meditating and mindfulness while doing everything. 6. Go outside and connect with nature. C. Prescription medications Patient was educated on the use of prescription medications for medical weight loss. This is a growing list and includes phentermine, Topamax,Qsymia, contrave, belviq and saxenda. All prescription medications could have side effects including but not limited to kidney stones, seizure disorder cardiac arrhythmias heart attack pancreatitis etc. etc.. Patient was encouraged to read the prescription insert and have coaching with their pharmacist and make an informed decision about taking medication and know that these medications are being prescribed with good intentions and we do not know how a patient would react to her medication. Sudden medications are FDA approved for weight loss and there is also off label use depending on patient's inability to afford medications in an attempt to lose weight D. Behavioral counseling was done to establish a relationship between food and an mood. Patient was provided information about local counseling and psychiatry and Dr Peacock at [facility]. We would like to cover regular topics and build on low glycemic eating exercise mindful eating, using yoga and meditation along with deep breathing and connecting with friends and family. E. MASS PAT reviewed, Patient's current medications were reviewed and opinion was given on medication that can cause weight gain and can be substituted F. Patient was assessed for risk with obesity including and not limiting to atherosclerosis heart disease stroke kidney disease, restrictive lung disease, irritable bowel syndrome and overall mortality. Risk of developing prediabetes diabetes and metabolic syndrome was discussed G. Therapeutic plan: We have decided to make therapeutic plan which would include choosing wisely on calories restricting portion getting active, tracking weight, getting good quality sleep and working on time management H. Patient will follow up in (4) weeks for weight management Of note, some information is being carried forward from prior records for informational purposes only and is being cited so that efficiency, safety and quality of the patient's care is not compromised This note was prepared using voice recognition software and direct typing Please excuse inadvertent internal sales engineer or typing errors, or uncorrected word substitutions Although every attempt has been made by the provider to proofread this document, occasional misspellings and typographical errors may still be present Due to the previous pandemic, and the use of personal protective equipment (PPE) This may decrease voice recognition accuracy Inadvertent internal sales engineer errors may occur PLAN OF TREATMENT No Information Insurance Providers Payer Name Payer Address Payer Phone Subscriber Number Group Number Insured Name Patient Relationship to Insured Coverage Start Date Coverage End Date [facility] [address] [place] [address] [phone] [id number] Pluta, Gabriela Self - patient is the insured 3 MEDICAL (GENERAL) HISTORY Surgical History Surgery Date(Month/Year) C section 02/28/2007 cholecystectomy
--- OUTSIDE RECORDS SUMMARY | 2024-10-22 08:02 | XMS_ITS ---
Author Organization [facility] Address [address] [place] [address] Care Team Providers Care Face Man Name Role Phone MANISHA BLUM Unavailable [phone] MOSES FUENTES Unavailable [phone] Encounters Encounter Location Date Provider Diagnosis [facility] [address] [facility] [address] [place] [address] 08/20/2024 MOSES FUENTES PLAN OF TREATMENT No Information Progress Notes * GATOGabrielaDOB:1970 ( 54 yo F)Acc No.[id number]:08/20/2024 Patient:??JOSESITOGabriela SUMNER Provider:??MOSES FUENTES :1970?Age:54 Y?Sex:Fe male Date:08/20/2024 [id number] Subjective: * Chief Complaints: * ? * Medical History:?? Objective: Assessment: Plan: * Treatment: * Images: Billing Information: * Visit Code:?? * Procedure Codes:?? * Sign off status: Pending * Provider:??MOSES FUENTES Date:?? 025
== END 2024-10-22 07:58 | disposition home or self-care (01) ==
LOC: HO.MAMMO 07:57
PROVIDERS: PCP Physician Assistant; Visit Provider Physician Assistant
DX: Z12.31 Encounter for screening mammogram for malignant neoplasm of breast (principal)
CPT/HCPCS: 77063; 77067

== ENCOUNTER → 2024-10-22 08:00 | Outpatient (BNV) | payer BC, SELFPAY | PROVIDERS: PCP Physician Assistant; Visit Provider Internal Medicine | DX: Z12.31 Encounter for screening mammogram for malignant neoplasm of breast (principal) | CPT/HCPCS: 77063; 77067 ==

== ENCOUNTER 2024-10-24 07:38 | Outpatient (REF) | payer BC, SELFPAY ==
[2024-10-24 07:51] LABS: MANUAL DIFF FLAG NO
[2024-10-24 08:43] LABS: Estimated Average Glucose 97 mg/dL
[2024-10-24 08:45] LABS: Basophils Percent Auto 0.7 % (0-2); Eosinophils Absolute Auto 0.5 X10*3/uL (0.0-0.4); Eosinophils Percent Auto 8.1 % (0-4); Hematocrit 38.9 % (37.0-47.0); Hemoglobin 13.2 g/dl (12.0-16.0); Imm Gran Abs Auto 0.01 X10*3/uL (0.00-0.03); Imm Gran Pct Auto 0.2 % (0.0-0.4); Lymphocytes Absolute Auto 1.7 X10*3/uL (1.2-4.9); Lymphocytes Percent Auto 29.4 % (20-40); Mean Corpuscular HGB Conc 33.9 g/dl (31.0-35.0); Mean Corpuscular Hemoglobin 30.2 pg (27.0-33.0); Mean Platelet Volume 10.6 fL (9.4-12.3); Monocytes Absolute Auto 0.5 X10*3/uL (0.1-1.2); Monocytes Percent Auto 9.2 % (2-11); Neutrophils Percent Auto 52.4 % (45-73); Platelet Count 321 X10*3/uL (160-400); Red Blood Count 4.37 X10*6/uL (4.20-5.50); Red Cell Distribution Width 12.8 % (11.0-16.0); White Blood Count 5.8 X10*3/uL (4.8-10.8)
[2024-10-24 09:16] LABS: Alanine Aminotransferase 14 U/L (0-31); Albumin Level 4.2 g/dL (3.5-5.0); Alkaline Phosphatase 58 U/L (39-117); Anion Gap 8 (12-20); Aspartate Amino Transferase 18 U/L (5-31); Bilirubin Total 1.4 mg/dL (0.0-1.0); Blood Urea Nitrogen 11 mg/dL (9-16); Carbon Dioxide 26 mmol/L (22-29); Chloride 109 mmol/L (96-108); Estimated Glomerular Filt Rate > 60; Glucose Fasting 80 mg/dL (60-99); Glucose Random 79 mg/dL (60-115); Potassium 4.3 mmol/L (3.3-5.1); Sodium 139 mmol/L (135-145); Total Protein 7.6 g/dL (6.5-8.0)
== END 2024-10-24 07:39 | disposition home or self-care (01) ==
LOC: HO.LAB 07:38
PROVIDERS: PCP Physician Assistant; Visit Provider Physician Assistant
DX: R73.09 Other abnormal glucose (principal); R07.89 Other chest pain
CPT/HCPCS: 36415; 80048; 80053; 83036; 85025

== ENCOUNTER 2024-10-29 15:02 | Outpatient (REF) | payer BC, SELFPAY ==
--- NOTE | ~2024-10-29 | CT_ITS ---
CLINICAL HISTORY: R91.1 - Solitary pulmonary nodule Exam: CT chest with intravenous contrast. Comparison: None. Findings: No focal areas of consolidation are identified within the lungs. No concerning pulmonary nodules. No pleural effusion or pneumothorax. Thyroid gland is unremarkable. Heart size within normal limits. Thoracic aorta is of normal caliber. No enlarged lymph nodes. Gallbladder is surgically absent. No free fluid or free air within the upper abdomen. No focal bony lesions. Impression: No suspicious pulmonary nodules. This document has been electronically signed by: Cuong Naidu MD on 10/31/2024 09:01:58
[2024-10-29] MEDS: iohexoL 350 MG/ML 75 ML INFUS..BTL 65 ML IV (16:08)
--- OUTSIDE RECORDS SUMMARY | 2024-10-29 18:49 | XMS_ITS | Patient Health Record ---
Author Organization [facility] Address [address] [place] [address] Care Team Providers Care Linux System Admin Name Role Phone MANISHA BLUM Unavailable [phone] ALFREDO MOSES Unavailable [phone] ALLERGIES No Known Allergies REASON FOR REFERRAL [...] Mild intermittent asthma, uncomplicated (J45.20) Active confirmed 365347146 Problem BMI 35.0-35.9,adult (Z68.35) Active confirmed 575553357 Problem Adult-onset obesity (E66.9) Active confirmed [id number] VITAL SIGNS Heart Rate 97 /min 07/23/2024 Oximetry 99 % 07/23/2024 Blood pressure diastolic 82 mm Hg 07/23/2024 Height 62 in 07/23/2024 Blood pressure systolic 118 mm Hg 07/23/2024 Weight 193 lbs 07/23/2024 BMI 35.3 kg/m2 07/23/2024 Encounters Encounter Location Date Provider Diagnosis [facility] [address] [facility] [address] [facility] [address] [place] [address] 12/28/2023 MANISHA MINAJONH Other obesity due to excess calories E66.09 ; Chronic obstructive asthma J44.89 and BMI 36.0-36.9,adult Z68.36 [facility] [address] [facility] [address] [address] 02/27/[address] [facility] [address] [facility] [address] 04/29/2024 MANISHA VIKTORIA [facility] [address] 06/25/2024 MOSES FUENTES [facility] [address] 08/20/2024 MOSES FUENTES [facility] [address] [facility] [address] [address] 11/02/2023 MANISHA BLUM Chronic obstructive asthma J44.89 ; Other obesity due to excess calories E66.09 and BMI 36.0-36.9,adult Z68.36 [facility] [address] [place] [address] 02/24/2024 MANISHA BLUM Other obesity due to excess calories E66.09 ; BMI 36.0-36.9,adult Z68.36 and Chronic obstructive asthma J44.89 [facility] [address] [facility] [address] 04/30/2024 MANISHA VIKTORIA Other obesity due to excess calories E66.09 ; BMI 35.0-35.9,adult Z68.35 ; Dietary counseling and surveillance Z71.3 and Chronic obstructive asthma J44.89 [facility] [address] 05/28/2024 MOSES FUENTES Adult-onset obesity E66.9 ; BMI 36.0-36.9,adult Z68.36 and Mild intermittent asthma, uncomplicated J45.[address] [facility] [address] [facility] [address] 07/23/2024 MOSES FUENTES BMI 35.0-35.9,adult Z68.35 ; Adult-onset obesity E66.9 and Mild intermittent asthma, uncomplicated J45.[address] [facility] [address] [facility] [address] [address] 12/29/2023 MANISHA BLUM Other obesity due to excess calories E66.[address] [facility] [address] [place] [address] 02/20/2024 MANISHA BLUM Other obesity due to excess calories E66.09 [address] [facility] [address] [facility] [address] [place] [address] 08/21/[address] [facility] [address] [facility] [address] [place] [address] 12/27/[address] [facility] [address] [facility] [address] [address] 12/27/2023 MANISHA BLUM [address] [facility] [address] [place] [address] 03/25/2024 MANISHA BLUM [facility] [address] [facility] [address] [address] 04/26/2024 MANISHA BLUM [facility] [address] [facility] [address] [address] 04/26/2024 MANISHA BLUM ASSESSMENTS Encounter Date Diagnosis [...] minimum of 6 months The most recent [place] Association of clinical endocrinologists and [place] [employer] of endocrinology guidelines recommend patients who [...] track activity level. Consider using apps like [employer], SocialShieldfitWebNotespal, lose it, stick as needed for self-monitoring and weight management. Consider group exercises. Consider hiring a personal care aide. Regular exercise is harrison to sustainable health [...] counseling and psychiatry and Dr Peacock at [facility]. We would like to cover regular topics [...] software and direct typing Please excuse inadvertent time piece repairer or typing errors, or uncorrected word substitutions Although every attempt has been made by the provider to proofread this document, occasional misspellings and typographical errors may still be present Due to the previous pandemic, and the use of personal protective equipment (PPE) This may decrease voice recognition accuracy Inadvertent time piece repairer errors may occur 12/29/2023 Other obesity due [...] minimum of 6 months The most recent [place] [employer] of clinical endocrinologists and [place] [employer] of endocrinology guidelines recommend patients who [...] track activity level. Consider using apps like [employer], [employer], lose it, stick as needed for self-monitoring and weight management. Consider group exercises. Consider hiring a personal care aide. Regular exercise is harrison to sustainable health [...] counseling and psychiatry and Dr Peacock at [facility]. We would like to cover regular topics [...] software and direct typing Please excuse inadvertent time piece repairer or typing errors, or uncorrected word substitutions Although every attempt has been made by the provider to proofread this document, occasional misspellings and typographical errors may still be present Due to the previous pandemic, and the use of personal protective equipment (PPE) This may decrease voice recognition accuracy Inadvertent time piece repairer errors may occur 02/24/2024 BMI 36.0-36.9,adult (ICD-10 [...] minimum of 6 months The most recent [place] [employer] of clinical endocrinologists and [place] [employer] of endocrinology guidelines recommend patients who [...] track activity level. Consider using apps like [employer], [employer], [employer]pal, lose it, stick as needed for self-monitoring and weight management. Consider group exercises. Consider hiring a personal care aide. Regular exercise is harrison to sustainable health [...] counseling and psychiatry and Dr Peacock at [facility]. We would like to cover regular topics [...] software and direct typing Please excuse inadvertent time piece repairer or typing errors, or uncorrected word substitutions Although every attempt has been made by the provider to proofread this document, occasional misspellings and typographical errors may still be present Due to the previous pandemic, and the use of personal protective equipment (PPE) This may decrease voice recognition accuracy Inadvertent time piece repairer errors may occur 11/02/2023 Chronic obstructive asthma [...] minimum of 6 months The most recent [place] [employer] of clinical endocrinologists and [place] [employer] of endocrinology guidelines recommend patients who [...] track activity level. Consider using apps like A[employer], [employer], lose it, stick as needed for self-monitoring and weight management. Consider group exercises. Consider hiring a personal care aide. Regular exercise is harrison to sustainable health [...] counseling and psychiatry and Dr Peacock at [facility]. We would like to cover regular topics [...] software and direct typing Please excuse inadvertent time piece repairer or typing errors, or uncorrected word substitutions Although every attempt has been made by the provider to proofread this document, occasional misspellings and typographical errors may still be present Due to the previous pandemic, and the use of personal protective equipment (PPE) This may decrease voice recognition accuracy Inadvertent time piece repairer errors may occur 12/28/2023 Other obesity due [...] minimum of 6 months The most recent [place] [employer] of clinical endocrinologists and [place] [employer] of endocrinology guidelines recommend patients who [...] track activity level. Consider using apps like A[employer], myfitnesspal, lose it, stick as needed for self-monitoring and weight management. Consider group exercises. Consider hiring a personal care aide. Regular exercise is harrison to sustainable health [...] counseling and psychiatry and Dr Peacock at [facility]. We would like to cover regular topics [...] software and direct typing Please excuse inadvertent time piece repairer or typing errors, or uncorrected word substitutions Although every attempt has been made by the provider to proofread this document, occasional misspellings and typographical errors may still be present Due to the previous pandemic, and the use of personal protective equipment (PPE) This may decrease voice recognition accuracy Inadvertent time piece repairer errors may occur 04/30/2024 Other obesity due [...] minimum of 6 months The most recent [place] [employer] of clinical endocrinologists and [place] [employer] of endocrinology guidelines recommend patients who [...] track activity level. Consider using apps like AQU[employer] PURE, [employer], [employer]pal, lose it, stick as needed for self-monitoring and weight management. Consider group exercises. Consider hiring a personal care aide. Regular exercise is harrison to sustainable health [...] counseling and psychiatry and Dr Peacock at [facility]. We would like to cover regular topics [...] software and direct typing Please excuse inadvertent time piece repairer or typing errors, or uncorrected word substitutions Although every attempt has been made by the provider to proofread this document, occasional misspellings and typographical errors may still be present Due to the previous pandemic, and the use of personal protective equipment (PPE) This may decrease voice recognition accuracy Inadvertent time piece repairer errors may occur 04/30/2024 BMI 35.0-35.9,adult (ICD-10 [...] minimum of 6 months The most recent [place] [employer] of clinical endocrinologists and [place] [employer] of endocrinology guidelines recommend patients who [...] track activity level. Consider using apps like AQU[employer] PURE, [employer]am[employer], lose it, stick as needed for self-monitoring and weight management. Consider group exercises. Consider hiring a personal care aide. Regular exercise is harrison to sustainable health [...] counseling and psychiatry and Dr Peacock at [facility]. We would like to cover regular topics [...] software and direct typing Please excuse inadvertent time piece repairer or typing errors, or uncorrected word substitutions Although every attempt has been made by the provider to proofread this document, occasional misspellings and typographical errors may still be present Due to the previous pandemic, and the use of personal protective equipment (PPE) This may decrease voice recognition accuracy Inadvertent time piece repairer errors may occur 05/28/2024 BMI 36.0-36.9,adult (ICD-10 [...] Dictation was accomplished with the use of [employer] voice recognition software, which is prone to [...] Dictation was accomplished with the use of [employer] voice recognition software, which is prone to [...] resistance training through use of apps like [employer]. Total time spent with 30 minutes with [...] Dictation was accomplished with the use of [employer] voice recognition software, which is prone to [...] resistance training through use of apps like [employer]. Total time spent with 30 minutes with [...] Dictation was accomplished with the use of [employer] voice recognition software, which is prone to [...] resistance training through use of apps like [employer]. Total time spent with 30 minutes with [...] Dictation was accomplished with the use of [employer] voice recognition software, which is prone to [...] minimum of 6 months The most recent [place] Association of clinical endocrinologists and [place] [employer] of endocrinology guidelines recommend patients who [...] track activity level. Consider using apps like AQU[employer] PURE, myfitnesspal, lose it, stick as needed for self-monitoring and weight management. Consider group exercises. Consider hiring a personal care aide. Regular exercise is harirson to sustainable health and prevents as a [...] counseling and psychiatry and Dr Peacock at [facility]. We would like to cover regular topics [...] software and direct typing Please excuse inadvertent time piece repairer or typing errors, or uncorrected word substitutions Although every attempt has been made by the provider to proofread this document, occasional misspellings and typographical errors may still be present Due to the previous pandemic, and the use of personal protective equipment (PPE) This may decrease voice recognition accuracy Inadvertent time piece repairer errors may occur 05/28/2024 Mild intermittent asthma, [...] Dictation was accomplished with the use of [employer] voice recognition software, which is prone to [...] minimum of 6 months The most recent [place] Association of clinical endocrinologists and [place] [employer] of endocrinology guidelines recommend patients who [...] track activity level. Consider using apps like AQU[employer], [employer]am[employer], lose it, stick as needed for self-monitoring and weight management. Consider group exercises. Consider hiring a personal care aide. Regular exercise is harrison to sustainable health [...] counseling and psychiatry and Dr Peacock at [facility]. We would like to cover regular topics [...] software and direct typing Please excuse inadvertent time piece repairer or typing errors, or uncorrected word substitutions Although every attempt has been made by the provider to proofread this document, occasional misspellings and typographical errors may still be present Due to the previous pandemic, and the use of personal protective equipment (PPE) This may decrease voice recognition accuracy Inadvertent time piece repairer errors may occur 02/24/2024 Chronic obstructive asthma [...] minimum of 6 months The most recent [place] Association of clinical endocrinologists and [place] [employer] of endocrinology guidelines recommend patients who [...] track activity level. Consider using apps like [employer], [employer], lose it, stick as needed for self-monitoring and weight management. Consider group exercises. Consider hiring a personal care aide. Regular exercise is harrison to sustainable health [...] counseling and psychiatry and Dr Peacock at [facility]. We would like to cover regular topics [...] software and direct typing Please excuse inadvertent time piece repairer or typing errors, or uncorrected word substitutions Although every attempt has been made by the provider to proofread this document, occasional misspellings and typographical errors may still be present Due to the previous pandemic, and the use of personal protective equipment (PPE) This may decrease voice recognition accuracy Inadvertent time piece repairer errors may occur 11/02/2023 BMI 36.0-36.9,adult (ICD-10 [...] minimum of 6 months The most recent [place] [employer] of clinical endocrinologists and [place] [employer] of endocrinology guidelines recommend patients who [...] track activity level. Consider using apps like [employer], [employer], lose it, stick as needed for self-monitoring and weight management. Consider group exercises. Consider hiring a personal care aide. Regular exercise is harrison to sustainable health [...] counseling and psychiatry and Dr Peacock at [facility]. We would like to cover regular topics [...] software and direct typing Please excuse inadvertent time piece repairer or typing errors, or uncorrected word substitutions Although every attempt has been made by the provider to proofread this document, occasional misspellings and typographical errors may still be present Due to the previous pandemic, and the use of personal protective equipment (PPE) This may decrease voice recognition accuracy Inadvertent time piece repairer errors may occur 12/28/2023 BMI 36.0-36.9,adult (ICD-10 [...] minimum of 6 months The most recent [place] [employer] of clinical endocrinologists and [place] [employer] of endocrinology guidelines recommend patients who [...] track activity level. Consider using apps like A[employer], [employer], lose it, stick as needed for self-monitoring and weight management. Consider group exercises. Consider hiring a personal care aide. Regular exercise is harrison to sustainable health [...] counseling and psychiatry and Dr Peacock at [facility]. We would like to cover regular topics [...] software and direct typing Please excuse inadvertent time piece repairer or typing errors, or uncorrected word substitutions Although every attempt has been made by the provider to proofread this document, occasional misspellings and typographical errors may still be present Due to the previous pandemic, and the use of personal protective equipment (PPE) This may decrease voice recognition accuracy Inadvertent time piece repairer errors may occur 04/30/2024 Chronic obstructive asthma [...] minimum of 6 months The most recent [place] [employer] of clinical endocrinologists and [place] [employer] of endocrinology guidelines recommend patients who [...] track activity level. Consider using apps like AQU[employer], [employer], [employer]pal, lose it, stick as needed for self-monitoring and weight management. Consider group exercises. Consider hiring a personal care aide. Regular exercise is harrison to sustainable health [...] counseling and psychiatry and Dr Peacock at [facility]. We would like to cover regular topics [...] software and direct typing Please excuse inadvertent time piece repairer or typing errors, or uncorrected word substitutions Although every attempt has been made by the provider to proofread this document, occasional misspellings and typographical errors may still be present Due to the previous pandemic, and the use of personal protective equipment (PPE) This may decrease voice recognition accuracy Inadvertent time piece repairer errors may occur PLAN OF TREATMENT No Information Insurance Providers Payer Name Payer Address Payer Phone Subscriber Number Group Number Insured Name Patient Relationship to Insured Coverage Start Date Coverage End Date [facility] [address] [place] [address] [phone] [id number] Pluta, Gabriela Self - patient is the insured 3 MEDICAL (GENERAL) HISTORY Surgical History Surgery Date(Month/Year) C section 02/28/2007 cholecystectomy
--- OUTSIDE RECORDS SUMMARY | 2024-10-29 18:49 | XMS_ITS ---
Author Organization [facility] Address [address] [place] [address] Care Team Providers Care Wall Cleaner Name Role Phone MANISHA BLUM Unavailable [phone] MOSES FUENTES Unavailable [phone] REASON FOR VISIT pt here for wt [...] Problem BMI 35.0-35.9,ad ult (Z68.35) Active confirmed [id number] VITAL SIGNS Blood pressure systolic 118 mm Hg 07/23/20 24 Blood pressure diastolic 82 mm Hg 024 Heart Rate 97 /min 07/23/2024 Height 62 in 07/23/2024 Weight 193 lbs 07/23/2024 BMI 35.3 kg/m2 07/23/2024 Oximetry 99 % 07/23/2024 Encounters Encounter Location Date Provider Diagnosis [facility] [address] [address] 07/23/2024 MOSES FUENTES BMI 35.0-35.9,adult Z68.35 ; [...] resistance training through use of apps like [facility]. Total time spent with 30 minutes with [...] Dictation was accomplished with the use of [employer] voice recognition software, which is prone to [...] resistance training through use of apps like [facility]. Total time spent with 30 minutes with [...] Dictation was accomplished with the use of [employer] voice recognition software, which is prone to [...] resistance training through use of apps like [facility]. Total time spent with 30 minutes with [...] Dictation was accomplished with the use of [employer] voice recognition software, which is prone to [...] * Gabriela HOSKINSDOB:1970 ( 53 yo F)Acc No.[id number]:07/23/2024 Patient:??Gabriela HOSKINS Provider:??MOSES FUENTES :1970?Age:53 Y?Sex:Fe male Date:07/23/2024 [facility] Subjective: * Chief Complaints: * ?1. Pt [...] resistance training through use of apps like [facility]. Total time spent with 30 minutes with [...] Dictation was accomplished with the use of [employer] voice recognition software, which is prone to medical misidentifications and grammatical errors. This are unintentional and the practitioner does try to identify and correct these, but some could still be present. Please do not hesitate to contact practitioner for clarification. Plan: * Treatment: * Procedure Codes:??G0447 FCE- FCE BEHAVRL CNSL OBESITY 15 MIN, Modifiers: 59 * Images: Billing Information: * Visit Code:?? 56216 Office Visit, Est Pt., Level 4. * [...]
--- OUTSIDE RECORDS SUMMARY | 2024-10-29 18:50 | XMS_ITS ---
Author Organization [facility] Address [address] [place] [address] Care Team Providers Care Redevelopment Manager Name Role Phone MANISHA BLUM Unavailable [phone] REASON FOR VISIT CLAIM DENIAL Encounters Encounter Location Date Provider Diagnosis [facility] [address] [place] [address] 08/21/2024 MANISHA BLUM PLAN OF TREATMENT No Information Progress Notes * Gabriela CEDEÑODOB:1970 ( 54 yo F)Acc No.[id number]:08/21/2024 Patient:??Gabriela CEDEÑO :1970?Age:54 Y?Sex:Fe male Address:[address] [place] [address] * true * Date:??
--- OUTSIDE RECORDS SUMMARY | 2024-10-29 18:50 | XMS_ITS ---
Author Organization [facility] Address [address] [place] [address] Care Team Providers Care Car Wiper Name Role Phone MANISHA BLUM Unavailable [phone] MOSES FUENTES Unavailable [phone] Encounters Encounter Location Date Provider Diagnosis [facility] [address] [facility] [address] [place] [address] 08/20/2024 MOSES FUENTES PLAN OF TREATMENT No Information Progress Notes * GATOGabrielaDOB:1970 ( 54 yo F)Acc No.[id number]:08/20/2024 Patient:??JOSESITOGabriela SUMNER Provider:??MOSES FUENTES :1970?Age:54 Y?Sex:Fe male Date:08/20/2024 [facility] Subjective: * Chief Complaints: * ? * Medical History:?? Objective: Assessment: Plan: * Treatment: * Images: Billing Information: * Visit Code:?? * Procedure Codes:?? * Sign off status: Pending * Provider:??MOSES FUENTES Date:?? 025
== END 2024-10-29 15:03 | disposition home or self-care (01) ==
LOC: HO.CT 15:02
PROVIDERS: PCP Physician Assistant; Visit Provider Physician Assistant
DX: R91.1 Solitary pulmonary nodule (principal)
CPT/HCPCS: 71260; Q9967

== ENCOUNTER → 2024-10-29 15:04 | Outpatient (BNV) | payer BC, SELFPAY | PROVIDERS: PCP Physician Assistant; Visit Provider Radiology Diagnostic Radiology | DX: R91.1 Solitary pulmonary nodule (principal) | CPT/HCPCS: 71260 ==

== ENCOUNTER 2024-11-04 15:34 | Outpatient (REF) | payer BC, SELFPAY ==
[2024-11-05 11:23] LABS: Influenza A PCR NEGATIVE (Negative); Influenza B PCR NEGATIVE (Negative); Resp Syncy Virus RNA Qual PCR NEGATIVE (Negative); SARS COV2 PCR INHOUSE NEGATIVE (Negative)
== END 2024-11-04 15:35 | disposition home or self-care (01) ==
LOC: HO.LAB 15:34
PROVIDERS: Physician Assistant; PCP Physician Assistant
DX: J01.00 Acute maxillary sinusitis, unspecified (principal); R09.89 Other specified symptoms and signs involving the circulatory and respiratory systems; R50.9 Fever, unspecified
CPT/HCPCS: 0241U

== ENCOUNTER 2024-11-04 15:34 | Outpatient (AMB) | payer BC, SELFPAY ==
--- NOTE | 2024-11-04 15:35 | AM.OFFWIN_ITS ---
Intake Vital Signs 11/04/24 15:36 Weight 186 lb BP 118/70 Blood Pressure Location Rt brachial Position Sitting Pulse 111 H Pulse Source Pulse Oximeter Temp 98.7 F Temp Source Oral Pulse Oximetry (%) 98 Oxygen Delivery Method Room Air Intake Visit Reasons: EP sinus infection, fever, chills Intake Note: Patient here for sinus pressure, headaches, teeth pain that has been present since monday. Patient Tobacco Use Status: Never used Tobacco Allergies fluticasone [From [facility]] Adverse Reaction (Intermediate, Verified 11/04/24 15:37) Hoarseness of voice salmeterol [From [facility]] Adverse Reaction (Intermediate, Verified 11/04/24 15:37) Hoarseness of voice Do you need a note to return to daycare/school/sports/work: No HPI HPI Comments History of Present Illness Details History The patient is a 54-year-old female with a past med hx of asthma presenting with respiratory symptoms and suspected sinusitis x4 days. She reports onset last Monday, with symptoms worsening by Monday night. The patient had a fever on Monday, followed by heavy sweating. She has a history of annual sinus infections, with clear and green nasal discharge currently present. Despite these, her shortness of breath is mild and attributed to asthma, for which she uses an inhaler. The patient's current medications include Tylenol, an allergy pill, and a decongestant. Asthma management involves Pulmicort BID and a rescue inhaler, last used last night and this morning. Potential allergen exposure is noted due to a mini poodle mix pet in the home. Physical Exam General: Cooperative, healthy appearing, comfortable and no acute distress Orientation/consciousness: Patient oriented x3 Limitations: No limitations Head: Normal to inspection Ears: Hearing grossly normal bilaterally, external ears normal and TM's normal bilaterally Nose: Normal external nose present, Normal nares present and No nasal discharge present Face and sinus: Normal facial exam and Yes sinuses tender Mouth: Normal oral and palatal mucosa present and moist mucous membranes Throat: Yes tonsils normal, Yes uvula midline. Posterior oropharynx erythema Eyes: Appearance normal, both eyes and all related structures Neck: Normal visual inspection Respiratory: Clear to auscultation bilaterally. Normal respiratory effort, able to speak in complete sentences, Actively coughing, no respiratory distress, not tachypneic, no tripod positioning and no use of accessory muscles Cardiovascular: tachycardic rate and regular. Normal S1 and S2 Skin: No rashes or lesions noted Neuro: Patient oriented x3 Extremities: Normal to inspection and Yes no clubbing, cyanosis or edema [facility] Medical History Obesity (BMI 30-39.9) Asthma Surgical History Previous section S/P cholecystectomy Family History Father Hairy cell leukemia Social History (Updated 08/27/24 @ 08:28 by Keo Hilario PA-C) Household Members: Spouse and Children Housing: House Are you a primary wound care coordinator to a significant other at home: No Do you presently have visiting nurse or other home services: No Alcohol intake: current Alcohol intake frequency: a few times a week Alcohol type: wine Patient Tobacco Use Status: Never used Tobacco e-Cigarette/Vaping Use: Never Used Second Hand Smoke Exposure: No service: No Current occupational status: employed Current occupation: [employer] Sexual orientation: Straight/Heterosexual Gender identity: Female Cognitive needs: No Hearing needs: No Vision needs: No Female Reproductive History Menstrual Age of Menarche: 13 Review of Systems Const All systems reviewed & are unremarkable except as noted in HPI and below Physical Exam Vital Signs: Last Vital Signs Temp 98.7 F 11/04/24 15:36 Pulse 111 H 11/04/24 15:36 BP 118/70 11/04/24 15:36 Pulse Ox 94 11/04/24 15:36 Oxygen Delivery Method Room Air 11/04/24 15:36 Assessment & Plan Assessment & Plan (1) Sinusitis: Code(s): J32.9 - Chronic sinusitis, unspecified Qualifiers: Sinusitis location: maxillary Chronicity: acute Recurrence: non- recurrent Qualified Code(s): J01.00 - Acute maxillary sinusitis, unspecified Plan: Patient is slightly tachycardic likely secondary to dehydration, emphasized increasing fluids as likely having insensible losses. To address the patient's sinusitis and associated respiratory symptoms, I will commence corticosteroid therapy to alleviate inflammation and symptom severity. Due to possible viral infection, swabs were sent for testing for influenza, COVID-19, and RSV. Benzonatate is prescribed for controlling cough at night. Emphasis is placed on maintaining proper hydration to assist in reducing tachycardia and augmenting recovery. The continuation of her present medications, including Tylenol, an antihistamine, and a decongestant, is recommended. For asthma management, she will maintain her regular corticosteroid inhalation regimen and rely on her rescue inhaler as necessary. Consideration should be given to the potential allergen exposure from a new mini poodle mix pet. If conditions do not improve by mid-week, Augmentin has been preemptively prescribed for potential bacterial infection, though its use should be avoided unless symptoms substantially persist. Patient was informed and verbally consented to the use of an ambient scribe for clinic note documentation during this visit Orders: Orders SARS-CoV2/FLU/RSV Today R09.89 - Other specified symptoms and signs involving the circulatory and respiratory systems Medications: New amoxicillin-pot clavulanate 875-125 mg 1 tab PO Q12H 14 tabs 0RF benzonatate 200 mg PO BEDTIME PRN 10 caps 0RF cough methylprednisolone PO PER PKG DIR for 6 days 21 ea 0RF Coding Level of Care Code Est Pt Level 3 (83828) Diagnoses Acute non-recurrent maxillary sinusitis J01.00 Sinusitis location: maxillary Chronicity: acute Recurrence: non-recurrent
[2024-11-04 15:36] VITALS: BP 118/70; PULSE 111; TEMP 37.1; O2SAT 98
--- OUTSIDE RECORDS SUMMARY | 2024-11-04 17:29 | XMS_ITS ---
Author Organization [facility] Address [address] [place] [address] Care Team Providers Care Cooling System Operator Name Role Phone MANISHA BLUM Unavailable [phone] MOSES FUENTES Unavailable [phone] Encounters Encounter Location Date Provider Diagnosis [facility] [address] [facility] [address] [place] [address] 08/20/2024 MOSES FUENTES PLAN OF TREATMENT No Information Progress Notes * GATOGabrielaDOB:1970 ( 54 yo F)Acc No.[id number]:08/20/2024 Patient:??JOSESITOGabriela SUMNER Provider:??MOSES FUENTES :1970?Age:54 Y?Sex:Fe male Date:08/20/2024 [id number] Subjective: * Chief Complaints: * ? * Medical History:?? Objective: Assessment: Plan: * Treatment: * Images: Billing Information: * Visit Code:?? * Procedure Codes:?? * Sign off status: Pending * Provider:??MOSES FUENTES Date:?? 025
--- OUTSIDE RECORDS SUMMARY | 2024-11-04 17:29 | XMS_ITS ---
Author Organization [facility] Address [address] [place] [address] Care Team Providers Care Air Shovel Operator Name Role Phone MANISHA BLUM Unavailable [phone] MOSES FUENTES Unavailable [phone] REASON FOR VISIT pt here for wt [...] Problem BMI 35.0-35.9,ad ult (Z68.35) Active confirmed [id number] VITAL SIGNS Blood pressure systolic 118 mm Hg 07/23/20 24 Blood pressure diastolic 82 mm Hg 024 Heart Rate 97 /min 07/23/2024 Height 62 in 07/23/2024 Weight 193 lbs 07/23/2024 BMI 35.3 kg/m2 07/23/2024 Oximetry 99 % 07/23/2024 Encounters Encounter Location Date Provider Diagnosis [facility] [address] [address] 07/23/2024 MOSES FUENTES BMI 35.0-35.9,adult Z68.35 ; [...] resistance training through use of apps like [employer]. Total time spent with 30 minutes with [...] Dictation was accomplished with the use of [employer] voice recognition software, which is prone to [...] resistance training through use of apps like [employer]. Total time spent with 30 minutes with [...] Dictation was accomplished with the use of [employer] voice recognition software, which is prone to [...] resistance training through use of apps like [employer]. Total time spent with 30 minutes with [...] Dictation was accomplished with the use of [employer] voice recognition software, which is prone to [...] * Gabriela HOSKINSDOB:1970 ( 53 yo F)Acc No.[id number]:07/23/2024 Patient:??Gabriela HOSKINS Provider:??MOSES FUENTES :1970?Age:53 Y?Sex:Fe male Date:07/23/2024 [id number] Subjective: * Chief Complaints: * ?1. Pt [...] resistance training through use of apps like [employer]. Total time spent with 30 minutes with [...] Dictation was accomplished with the use of [employer] voice recognition software, which is prone to medical misidentifications and grammatical errors. This are unintentional and the practitioner does try to identify and correct these, but some could still be present. Please do not hesitate to contact practitioner for clarification. Plan: * Treatment: * Procedure Codes:??G0447 FCE- FCE BEHAVRL CNSL OBESITY 15 MIN, Modifiers: 59 * Images: Billing Information: * Visit Code:?? 29990 Office Visit, Est Pt., Level 4. * [...]
--- OUTSIDE RECORDS SUMMARY | 2024-11-04 17:29 | XMS_ITS ---
Author Organization [facility] Address [address] [place] [address] Care Team Providers Care Sales Person Name Role Phone MANISHA BLUM Unavailable [phone] REASON FOR VISIT CLAIM DENIAL Encounters Encounter Location Date Provider Diagnosis [facility] [address] [place] [id number] 08/21/2024 MANISHA BLUM PLAN OF TREATMENT No Information Progress Notes * Gabriela CEDEÑODOB:1970 ( 54 yo F)Acc No.[id number]:08/21/2024 Patient:??Gabriela CEDEÑO :1970?Age:54 Y?Sex:Fe male Address:[address] [place] [address] * true * Date:??
--- OUTSIDE RECORDS SUMMARY | 2024-11-04 17:29 | XMS_ITS | Patient Health Record ---
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 Name Role Phone MANISHA BLUM Unavailable [phone] ALFREDO MOSES Unavailable [phone] ALLERGIES No Known Allergies REASON FOR REFERRAL [...] Mild intermittent asthma, uncomplicated (J45.20) Active confirmed 418400690 Problem BMI 35.0-35.9,adult (Z68.35) Active confirmed 707087243 Problem Adult-onset obesity (E66.9) Active confirmed [id number] VITAL SIGNS Heart Rate 97 /min 07/23/2024 Blood pressure diastolic 82 mm Hg 07/23/2024 Oximetry 99 % 07/23/2024 Height 62 in 07/23/2024 Blood pressure systolic 118 mm Hg 07/23/2024 Weight 193 lbs 07/23/2024 BMI 35.3 kg/m2 07/23/2024 Encounters Encounter Location Date Provider Diagnosis [facility] [address] [facility] [address] [facility] [address] [place] [address] 12/28/2023 MANISHA MINAJONH Other obesity due to excess calories E66.09 ; Chronic obstructive asthma J44.89 and BMI 36.0-36.9,adult Z68.[address] [facility] [address] [facility] [address] [address] 02/27/[address] [facility] [address] [facility] [address] 04/29/2024 MANISHA BORHOT [facility] [address] [facility] [address] [address] 06/25/2024 MOSES FUENTES [facility] [address] [facility] [address] 08/20/2024 MOSES FUENTES [facility] [address] [place] [address] 02/24/2024 MANISHA BORHOT Other obesity due to excess calories E66.09 ; BMI 36.0-36.9,adult Z68.36 and Chronic obstructive asthma J44.89 [facility] [address] [facility] [address] 04/30/2024 MANISHA BORHOT Other obesity due to excess calories E66.09 ; BMI 35.0-35.9,adult Z68.35 ; Dietary counseling and surveillance Z71.3 and Chronic obstructive asthma J44.89 [facility] [address] [facility] [address] 05/28/2024 MOSES FUENTES Adult-onset obesity E66.9 ; BMI 36.0-36.9,adult Z68.36 and Mild intermittent asthma, uncomplicated J45.20 [facility] [address] [facility] [address] 07/23/2024 MOSES FUENTES BMI 35.0-35.9,adult Z68.35 ; Adult-onset obesity E66.9 and Mild intermittent asthma, uncomplicated J45.20 [facility] [address] [facility] [address] [address] 12/29/2023 MANISHA BORHOT Other obesity due to excess calories E66.09 [facility] [address] [facility] [address] [facility] [address] [place] [address] 02/20/2024 MANISHA BORHOT Other obesity due to excess calories E66.09 [address] [facility] [address] [facility] [address] [place] [address] 08/21/2024 MANISHA BORHOT [facility] [address] [facility] [address] [facility] [address] [place] [address] 12/27/[address] [facility] [address] [address] 12/27/2023 MANISHA BLUM [address] [facility] [address] [place] [address] 03/25/2024 MANISHA BLUM [facility] [address] [address] 04/26/2024 MANISHA BLUM [facility] [address] [facility] [address] [place] [address] 04/26/2024 MANISHA BLUM ASSESSMENTS Encounter Date Diagnosis Assessment Notes Treatment Notes Treatment Clinical Notes Section Notes 12/28/2023 Other obesity due to excess calories [...] minimum of 6 months The most recent [place] [employer] of clinical endocrinologists and [place] [employer] of endocrin[employer] guidelines recommend patients who [...] track activity level. Consider using apps like Wish[employer], [email or web address], lose it, stick as needed for self-monitoring and weight management. Consider group exercises. Consider hiring a personal development educator. Regular exercise is harrison to sustainable health [...] counseling and psychiatry and Dr Peacock at [facility]. We would like to cover regular topics [...] software and direct typing Please excuse inadvertent electronic tech or typing errors, or uncorrected word substitutions Although every attempt has been made by the provider to proofread this document, occasional misspellings and typographical errors may still be present Due to the previous pandemic, and the use of personal protective equipment (PPE) This may decrease voice recognition accuracy Inadvertent electronic tech errors may occur 12/29/2023 Other obesity due [...] minimum of 6 months The most recent [place] [employer] of clinical endocrinologists and [place] [employer] of endocrin[employer] guidelines recommend patients who [...] track activity level. Consider using apps like Wish[employer], [email or web address], lose it, stick as needed for self-monitoring and weight management. Consider group exercises. Consider hiring a personal development educator. Regular exercise is harrison to sustainable health [...] counseling and psychiatry and Dr Peacock at [facility]. We would like to cover regular topics [...] software and direct typing Please excuse inadvertent electronic tech or typing errors, or uncorrected word substitutions Although every attempt has been made by the provider to proofread this document, occasional misspellings and typographical errors may still be present Due to the previous pandemic, and the use of personal protective equipment (PPE) This may decrease voice recognition accuracy Inadvertent electronic tech errors may occur 02/24/2024 BMI 36.0-36.9,adult (ICD-10 [...] minimum of 6 months The most recent [place] [employer] of clinical endocrinologists and [place] [employer] of endocrin[employer] guidelines recommend patients who [...] track activity level. Consider using apps like Wish[employer], [email or web address], lose it, stick as needed for self-monitoring and weight management. Consider group exercises. Consider hiring a personal development educator. Regular exercise is harrison to sustainable health [...] counseling and psychiatry and Dr Peacock at [facility]. We would like to cover regular topics [...] software and direct typing Please excuse inadvertent electronic tech or typing errors, or uncorrected word substitutions Although every attempt has been made by the provider to proofread this document, occasional misspellings and typographical errors may still be present Due to the previous pandemic, and the use of personal protective equipment (PPE) This may decrease voice recognition accuracy Inadvertent electronic tech errors may occur 04/30/2024 Other obesity due [...] minimum of 6 months The most recent [place] [employer] of clinical endocrinologists and [place] [employer] of endocrinology guidelines recommend patients who [...] track activity level. Consider using apps like Wishberg, myfitnesspal, lose it, stick as needed for self-monitoring and weight management. Consider group exercises. Consider hiring a personal development educator. Regular exercise is harrison to sustainable health [...] counseling and psychiatry and Dr Peacock at [facility]. We would like to cover regular topics [...] software and direct typing Please excuse inadvertent electronic tech or typing errors, or uncorrected word substitutions Although every attempt has been made by the provider to proofread this document, occasional misspellings and typographical errors may still be present Due to the previous pandemic, and the use of personal protective equipment (PPE) This may decrease voice recognition accuracy Inadvertent electronic tech errors may occur 04/30/2024 BMI 35.0-35.9,adult (ICD-10 [...] minimum of 6 months The most recent [place] [employer] of clinical endocrinologists and [place] [employer] of endocrinology guidelines recommend patients who [...] track activity level. Consider using apps like Wishberg, [email or web address], lose it, stick as needed for self-monitoring and weight management. Consider group exercises. Consider hiring a personal development educator. Regular exercise is harrison to sustainable health [...] counseling and psychiatry and Dr Peacock at [facility]. We would like to cover regular topics [...] software and direct typing Please excuse inadvertent electronic tech or typing errors, or uncorrected word substitutions Although every attempt has been made by the provider to proofread this document, occasional misspellings and typographical errors may still be present Due to the previous pandemic, and the use of personal protective equipment (PPE) This may decrease voice recognition accuracy Inadvertent electronic tech errors may occur 05/28/2024 BMI 36.0-36.9,adult (ICD-10 [...] Dictation was accomplished with the use of [employer] voice recognition software, which is prone to [...] Dictation was accomplished with the use of [employer] voice recognition software, which is prone to [...] resistance training through use of apps like [employer]. Total time spent with 30 minutes with [...] Dictation was accomplished with the use of [employer] voice recognition software, which is prone to [...] resistance training through use of apps like [employer]. Total time spent with 30 minutes with [...] Dictation was accomplished with the use of [employer] voice recognition software, which is prone to [...] resistance training through use of apps like [employer]. Total time spent with 30 minutes with [...] Dictation was accomplished with the use of [employer] voice recognition software, which is prone to [...] minimum of 6 months The most recent [place] [employer] of clinical endocrinologists and [place] [employer] of endocrinology guidelines recommend patients who [...] track activity level. Consider using apps like [employer], myfitnesspal, lose it, stick as needed for self-monitoring and weight management. Consider group exercises. Consider hiring a personal development educator. Regular exercise is harrison to sustainable health [...] counseling and psychiatry and Dr Peacock at [facility]. We would like to cover regular topics [...] software and direct typing Please excuse inadvertent electronic tech or typing errors, or uncorrected word substitutions Although every attempt has been made by the provider to proofread this document, occasional misspellings and typographical errors may still be present Due to the previous pandemic, and the use of personal protective equipment (PPE) This may decrease voice recognition accuracy Inadvertent electronic tech errors may occur 05/28/2024 Mild intermittent asthma, [...] Dictation was accomplished with the use of [employer] voice recognition software, which is prone to [...] minimum of 6 months The most recent [place] [employer] of clinical endocrinologists and [place] [employer] of endocrinology guidelines recommend patients who [...] track activity level. Consider using apps like [employer]cise, myMobile [employer], lose it, stick as needed for self-monitoring and weight management. Consider group exercises. Consider hiring a personal development educator. Regular exercise is harrison to sustainable health [...] counseling and psychiatry and Dr Peacock at [facility]. We would like to cover regular topics [...] software and direct typing Please excuse inadvertent electronic tech or typing errors, or uncorrected word substitutions Although every attempt has been made by the provider to proofread this document, occasional misspellings and typographical errors may still be present Due to the previous pandemic, and the use of personal protective equipment (PPE) This may decrease voice recognition accuracy Inadvertent electronic tech errors may occur 02/24/2024 Chronic obstructive asthma [...] minimum of 6 months The most recent [place] [employer] of clinical endocrinologists and [place] [employer] of endocrinology guidelines recommend patients who [...] track activity level. Consider using apps like [employer], [email or web address], lose it, stick as needed for self-monitoring and weight management. Consider group exercises. Consider hiring a personal development educator. Regular exercise is harrison to sustainable health [...] counseling and psychiatry and Dr Peacock at [facility]. We would like to cover regular topics [...] software and direct typing Please excuse inadvertent electronic tech or typing errors, or uncorrected word substitutions Although every attempt has been made by the provider to proofread this document, occasional misspellings and typographical errors may still be present Due to the previous pandemic, and the use of personal protective equipment (PPE) This may decrease voice recognition accuracy Inadvertent electronic tech errors may occur 12/28/2023 BMI 36.0-36.9,adult (ICD-10 [...] minimum of 6 months The most recent [place] [employer] of clinical endocrinologists and [place] [employer] of endocrinology guidelines recommend patients who [...] track activity level. Consider using apps like Wish[employer], myfitnesspal, lose it, stick as needed for self-monitoring and weight management. Consider group exercises. Consider hiring a personal development educator. Regular exercise is harrison to sustainable health [...] counseling and psychiatry and Dr Peacock at [facility]. We would like to cover regular topics [...] software and direct typing Please excuse inadvertent electronic tech or typing errors, or uncorrected word substitutions Although every attempt has been made by the provider to proofread this document, occasional misspellings and typographical errors may still be present Due to the previous pandemic, and the use of personal protective equipment (PPE) This may decrease voice recognition accuracy Inadvertent electronic tech errors may occur 04/30/2024 Chronic obstructive asthma [...] minimum of 6 months The most recent [place] [employer] of clinical endocrinologists and [place] [employer] of endocrinology guidelines recommend patients who [...] track activity level. Consider using apps like Wishberg, [email or web address], lose it, stick as needed for self-monitoring and weight management. Consider group exercises. Consider hiring a personal development educator. Regular exercise is harrison to sustainable health [...] counseling and psychiatry and Dr Peacock at [facility]. We would like to cover regular topics [...] software and direct typing Please excuse inadvertent electronic tech or typing errors, or uncorrected word substitutions Although every attempt has been made by the provider to proofread this document, occasional misspellings and typographical errors may still be present Due to the previous pandemic, and the use of personal protective equipment (PPE) This may decrease voice recognition accuracy Inadvertent electronic tech errors may occur PLAN OF TREATMENT No Information Insurance Providers Payer Name Payer Address Payer Phone Subscriber Number Group Number Insured Name Patient Relationship to Insured Coverage Start Date Coverage End Date [facility] [address] [place] [address] [phone] [id number] Gabriela Hoskins Self - patient is the insured 3 MEDICAL (GENERAL) HISTORY Surgical History Surgery Date(Month/Year) C section 02/28/2007 cholecystectomy
== END 2024-11-04 15:56 | disposition home or self-care (01) ==
PROVIDERS: PCP Physician Assistant; Visit Provider Physician Assistant
DX: J01.00 Acute maxillary sinusitis, unspecified (principal)

== ENCOUNTER 2025-02-14 07:46 | Outpatient (REF) | payer BC, SELFPAY ==
--- OUTSIDE RECORDS SUMMARY | 2025-02-14 07:49 | XMS_ITS | Patient Health Record ---
Author Organization [facility] [address] Address [address] [place] [address] Care Team Providers Care Packing Inspector Name Role Phone MANISHA BLUM Unavailable [phone] MOSES FUENTES Unavailable [phone] Allergies No Known Allergies Reason For Referral No Information Medications Medication SIG (Take, Route, Frequency, Duration) Notes Start Date End Date Status Zepbound 15 MG/0.5ML 15mg Subcutaneous w eekly; Duration: 30 days Active Metoprolol Succinate 25 MG 1 capsule Orally Once a day Not-Taking Serevent Diskus 50 MCG/ACT 1 puff Inhalation Twice a day Active Pulmicort Flexhaler 90 MCG/ACT 1 puff Inhalation Twice a day Active Zepbound 12.5 MG/0.5ML Inject 12.5 mg Subcutaneous once weekly; Duration: 28 days 04/30/2024 Not-Taking Problems Problem Type SNOMED Code ICD Code Onset Dates Problem Status W/U Status Risk Notes Problem Obesity due to excess calories (904565333) Other obesity due to excess calories (E66.09) Active confirmed Problem Mild intermittent asthma (662823521) Mild intermittent asthma, uncomplicated (J45.20) Active confirmed Problem Lipid screening (559562682) Encounter for screening for lipoid disorders (Z13.220) Active confirmed Problem Obese class II (488807727678812 ) BMI 35.0-35.9,adult (Z68.35) Active confirmed Problem Body mass index 30.00 to 34.99 (682264412268084 ) BMI 31.0-31.9,adult (Z68.31) Active confirmed Problem Body mass index 30+ - obesity (787176621) BMI 30.0-30.9,adult (Z68.30) Active confirmed Problem Adult-onset obesity (529451699) Adult-onset obesity (E66.9) Active confirmed Problem Endocrine/[place] lic screening (949705818) Encounter for screening for endocrine disorder (Z13.29) Active confirmed Problem Chronic obstructive asthma co-occurrent with acute exacerbation of asthma (disorder) (577599830446055 02) Chronic obstructive asthma (J44.89) Active confirmed Vital Signs Heart Rate 90 /min 01/17/2025 Blood pressure diastolic 68 mm Hg 01/17/2025 Oximetry 98 % 01/17/2025 Height 62 in 01/17/2025 Blood pressure systolic 114 mm Hg 01/17/2025 Weight 178.3 lbs 01/17/2025 BMI 32.61 kg/m2 01/17/2025 Encounters Encounter Location Date Provider Diagnosis [facility] [address] [place] [address] 02/24/2024 MANISHA BORHOT Other obesity due to excess calories E66.09 ; BMI 36.0-36.9,adult Z68.36 and Chronic obstructive asthma J44.89 [facility] [address] [address] 04/30/2024 MANISHA KEELEYHOT Other obesity due to excess calories E66.09 ; BMI 35.0-35.9,adult Z68.35 ; Dietary counseling and surveillance Z71.3 and Chronic obstructive asthma J44.89 [facility] [address] [address] 05/28/2024 MOSES FUENTES Adult-onset obesity E66.9 ; BMI 36.0-36.9,adult Z68.36 and Mild intermittent asthma, uncomplicated J45.20 [facility] [address] [address] 07/23/2024 MOSES FUENTES BMI 35.0-35.9,adult Z68.35 ; Adult-onset obesity E66.9 and Mild intermittent asthma, uncomplicated J45.20 [facility] [address] [address] 11/26/2024 MANISHA BORHOT Other obesity due to excess calories E66.09 ; BMI 31.0-31.9,adult Z68.31 ; Dietary counseling and surveillance Z71.3 and Chronic obstructive asthma J44.89 [facility] [address] [address] 01/17/2025 MANISHA BLUM Other obesity due to excess calories E66.09 ; BMI 30.0-30.9,adult Z68.30 ; Dietary counseling and surveillance Z71.3 ; Chronic obstructive asthma J44.89 and Encounter for examination of blood pressure without abnormal findings Z01.30 [facility] [address] [address] 02/20/2024 MANISHAKATARINA MELGART Other obesity due to excess calories E66.09 [facility] [address] [address] 08/21/2024 MANISHA BORHOT [facility] [address] [address] 01/22/2025 MANISHA MELGART Other obesity due to excess calories E66.09 [facility] [address] [address] 03/25/2024 MANISHA BORHOT [facility] [address] [address] 04/26/2024 MANISHA BORHOT [facility] [address] [address] 04/26/2024 MANISHA BLUM Assessments Encounter Date Diagnosis (ICD Code) Assessment Notes Treatment Notes Treatment Clinical Notes Section Notes 02/20/2024 Other obesity due to excess calories [...] minimum of 6 months The most recent [place] [employer] of clinical endocrinologists and [place] [employer] of endocrinology guidelines recommend patients who [...] track activity level. Consider using apps like Tragara, Moment.Uspal, lose it, stick as needed for self-monitoring and weight management. Consider group exercises. Consider hiring a personal property appraiser. Regular exercise is harrison to sustainable health [...] counseling and psychiatry and Dr Peacock at [employer]. We would like to cover regular topics [...] software and direct typing Please excuse inadvertent surveillance investigator or typing errors, or uncorrected word substitutions Although every attempt has been made by the provider to proofread this document, occasional misspellings and typographical errors may still be present Due to the previous pandemic, and the use of personal protective equipment (PPE) This may decrease voice recognition accuracy Inadvertent surveillance investigator errors may occur 02/24/2024 BMI 36.0-36.9,adult (ICD-10 [...] minimum of 6 months The most recent [place] [employer] of clinical endocrinologists and [place] [employer] of endocrinology guidelines recommend patients who [...] track activity level. Consider using apps like Tragara, myfitnesspal, lose it, stick as needed for self-monitoring and weight management. Consider group exercises. Consider hiring a personal property appraiser. Regular exercise is harrison to sustainable health [...] counseling and psychiatry and Dr Peacock at [employer]. We would like to cover regular topics [...] software and direct typing Please excuse inadvertent surveillance investigator or typing errors, or uncorrected word substitutions Although every attempt has been made by the provider to proofread this document, occasional misspellings and typographical errors may still be present Due to the previous pandemic, and the use of personal protective equipment (PPE) This may decrease voice recognition accuracy Inadvertent surveillance investigator errors may occur 04/30/2024 Other obesity due [...] minimum of 6 months The most recent [place] [employer] of clinical endocrinologists and [place] [employer] of endocrinology guidelines recommend patients who [...] track activity level. Consider using apps like Tragara, myfitnesspal, lose it, stick as needed for self-monitoring and weight management. Consider group exercises. Consider hiring a personal property appraiser. Regular exercise is harrison to sustainable health [...] counseling and psychiatry and Dr Peacock at [employer]. We would like to cover regular topics [...] software and direct typing Please excuse inadvertent surveillance investigator or typing errors, or uncorrected word substitutions Although every attempt has been made by the provider to proofread this document, occasional misspellings and typographical errors may still be present Due to the previous pandemic, and the use of personal protective equipment (PPE) This may decrease voice recognition accuracy Inadvertent surveillance investigator errors may occur 04/30/2024 BMI 35.0-35.9,adult (ICD-10 [...] minimum of 6 months The most recent [place] [employer] of clinical endocrinologists and [place] [employer] of endocrinology guidelines recommend patients who [...] track activity level. Consider using apps like Tragara, myfitnesspal, lose it, stick as needed for self-monitoring and weight management. Consider group exercises. Consider hiring a personal property appraiser. Regular exercise is harrison to sustainable health [...] counseling and psychiatry and Dr Peacock at [employer]. We would like to cover regular topics [...] software and direct typing Please excuse inadvertent surveillance investigator or typing errors, or uncorrected word substitutions Although every attempt has been made by the provider to proofread this document, occasional misspellings and typographical errors may still be present Due to the previous pandemic, and the use of personal protective equipment (PPE) This may decrease voice recognition accuracy Inadvertent surveillance investigator errors may occur 05/28/2024 BMI 36.0-36.9,adult (ICD-10 [...] Dictation was accomplished with the use of Bitvore voice recognition software, which is prone to [...] Dictation was accomplished with the use of Bitvore voice recognition software, which is prone to [...] resistance training through use of apps like Ektron. Total time spent with 30 minutes with [...] Dictation was accomplished with the use of Bitvore voice recognition software, which is prone to medical misidentifications and grammatical errors. This are unintentional and the practitioner does try to identify and correct these, but some could still be present. Please do not hesitate to contact practitioner for clarification. 11/26/2024 Other obesity due to excess calories (ICD-10 - E66.09) #Weight Management 11/26/2024 Increase to 15 mg Lipids and TSH will be ordered Other labs reviewed Total time spent today was 30 minutes of which greater than 50% was spent on coordinating and counseling Patient has been found to be obese with a BMI of (31). Patient has class (1) obesity. We are a board certified obesity and weight management practice Patient has trialed behavioral modification, dietary restrictions and exercise for a minimum of 6 months Of note, some information is being carried forward from prior records for informational purposes only and is being cited so that efficiency, safety and quality of the patient's care is not compromised This note was prepared using voice recognition software and direct typing Please excuse inadvertent surveillance investigator or typing errors, or uncorrected word substitutions Although every attempt has been made by the provider to proofread this document, occasional misspellings and typographical errors may still be present Due to the previous pandemic, and the use of personal protective equipment (PPE) This may decrease voice recognition accuracy Inadvertent surveillance investigator errors may occur 11/26/2024 BMI 31.0-31.9,adult (ICD-10 - Z68.31) #Weight Management 11/26/2024 Increase to 15 mg Lipids and TSH will be ordered Other labs reviewed Total time spent today was 30 minutes of which greater than 50% was spent on coordinating and counseling Patient has been found to be obese with a BMI of (31). Patient has class (1) obesity. We are a board certified obesity and weight management practice Patient has trialed behavioral modification, dietary restrictions and exercise for a minimum of 6 months Of note, some information is being carried forward from prior records for informational purposes only and is being cited so that efficiency, safety and quality of the patient's care is not compromised This note was prepared using voice recognition software and direct typing Please excuse inadvertent surveillance investigator or typing errors, or uncorrected word substitutions Although every attempt has been made by the provider to proofread this document, occasional misspellings and typographical errors may still be present Due to the previous pandemic, and the use of personal protective equipment (PPE) This may decrease voice recognition accuracy Inadvertent surveillance investigator errors may occur 01/17/2025 Other obesity due to excess calories (ICD-10 - E66.09) #Weight Management 01/17/2025 Thriving and improving body composition analysis Continue current 15 mg dosing Please update your labs prior to next visit Total time spent today was 30 minutes of which greater than 50% was spent on coordinating and counseling Patient has been found to be obese with a BMI of (30). Patient has class (1) obesity. We are a board certified obesity and weight management practice Patient has trialed behavioral modification, dietary restrictions and exercise for a minimum of 6 months Of note, some information is being carried forward from prior records for informational purposes only and is being cited so that efficiency, safety and quality of the patient's care is not compromised This note was prepared using voice recognition software and direct typing Please excuse inadvertent surveillance investigator or typing errors, or uncorrected word substitutions Although every attempt has been made by the provider to proofread this document, occasional misspellings and typographical errors may still be present Due to the previous pandemic, and the use of personal protective equipment (PPE) This may decrease voice recognition accuracy Inadvertent surveillance investigator errors may occur 01/17/2025 BMI 30.0-30.9,adult (ICD-10 - Z68.30) #Weight Management 01/17/2025 Thriving and improving body composition analysis Continue current 15 mg dosing Please update your labs prior to next visit Total time spent today was 30 minutes of which greater than 50% was spent on coordinating and counseling Patient has been found to be obese with a BMI of (30). Patient has class (1) obesity. We are a board certified obesity and weight management practice Patient has trialed behavioral modification, dietary restrictions and exercise for a minimum of 6 months Of note, some information is being carried forward from prior records for informational purposes only and is being cited so that efficiency, safety and quality of the patient's care is not compromised This note was prepared using voice recognition software and direct typing Please excuse inadvertent surveillance investigator or typing errors, or uncorrected word substitutions Although every attempt has been made by the provider to proofread this document, occasional misspellings and typographical errors may still be present Due to the previous pandemic, and the use of personal protective equipment (PPE) This may decrease voice recognition accuracy Inadvertent surveillance investigator errors may occur 01/22/2025 Other obesity due to excess calories (ICD-10 - E66.09) 01/17/2025 Dietary counseling and surveillance (ICD-10 - Z71.3) #Weight Management 01/17/2025 Thriving and improving body composition analysis Continue current 15 mg dosing Please update your labs prior to next visit Total time spent today was 30 minutes of which greater than 50% was spent on coordinating and counseling Patient has been found to be obese with a BMI of (30). Patient has class (1) obesity. We are a board certified obesity and weight management practice Patient has trialed behavioral modification, dietary restrictions and exercise for a minimum of 6 months Of note, some information is being carried forward from prior records for informational purposes only and is being cited so that efficiency, safety and quality of the patient's care is not compromised This note was prepared using voice recognition software and direct typing Please excuse inadvertent surveillance investigator or typing errors, or uncorrected word substitutions Although every attempt has been made by the provider to proofread this document, occasional misspellings and typographical errors may still be present Due to the previous pandemic, and the use of personal protective equipment (PPE) This may decrease voice recognition accuracy Inadvertent surveillance investigator errors may occur 11/26/2024 Dietary counseling and surveillance (ICD-10 - Z71.3) #Weight Management 11/26/2024 Increase to 15 mg Lipids and TSH will be ordered Other labs reviewed Total time spent today was 30 minutes of which greater than 50% was spent on coordinating and counseling Patient has been found to be obese with a BMI of (31). Patient has class (1) obesity. We are a board certified obesity and weight management practice Patient has trialed behavioral modification, dietary restrictions and exercise for a minimum of 6 months Of note, some information is being carried forward from prior records for informational purposes only and is being cited so that efficiency, safety and quality of the patient's care is not compromised This note was prepared using voice recognition software and direct typing Please excuse inadvertent surveillance investigator or typing errors, or uncorrected word substitutions Although every attempt has been made by the provider to proofread this document, occasional misspellings and typographical errors may still be present Due to the previous pandemic, and the use of personal protective equipment (PPE) This may decrease voice recognition accuracy Inadvertent surveillance investigator errors may occur 07/23/2024 Adult-onset obesity (ICD-10 - E66.9) Patient [...] resistance training through use of apps like Ektron. Total time spent with 30 minutes with [...] Dictation was accomplished with the use of Bitvore voice recognition software, which is prone to [...] resistance training through use of apps like Ektron. Total time spent with 30 minutes with [...] Dictation was accomplished with the use of Bitvore voice recognition software, which is prone to medical misidentifications and grammatical errors. This are unintentional and the practitioner does try to identify and correct these, but some could still be present. Please do not hesitate to contact practitioner for clarification. 05/28/2024 Mild intermittent asthma, uncomplicated (ICD-10 - [...] Dictation was accomplished with the use of Bitvore voice recognition software, which is prone to [...] minimum of 6 months The most recent [place] [employer] of clinical endocrinologists and [place] [employer] of endocrinology guidelines recommend patients who [...] track activity level. Consider using apps like Tragara, myfitnesspal, lose it, stick as needed for self-monitoring and weight management. Consider group exercises. Consider hiring a personal property appraiser. Regular exercise is harrison to sustainable health [...] counseling and psychiatry and Dr Peacock at [employer]. We would like to cover regular topics [...] software and direct typing Please excuse inadvertent surveillance investigator or typing errors, or uncorrected word substitutions Although every attempt has been made by the provider to proofread this document, occasional misspellings and typographical errors may still be present Due to the previous pandemic, and the use of personal protective equipment (PPE) This may decrease voice recognition accuracy Inadvertent surveillance investigator errors may occur 02/24/2024 Chronic obstructive asthma [...] minimum of 6 months The most recent [place] [employer] of clinical endocrinologists and [place] [employer] of endocrinology guidelines recommend patients who [...] track activity level. Consider using apps like Tragara, Moment.Uspal, lose it, stick as needed for self-monitoring and weight management. Consider group exercises. Consider hiring a personal property appraiser. Regular exercise is harrison to sustainable health [...] counseling and psychiatry and Dr Peacock at [employer]. We would like to cover regular topics [...] software and direct typing Please excuse inadvertent surveillance investigator or typing errors, or uncorrected word substitutions Although every attempt has been made by the provider to proofread this document, occasional misspellings and typographical errors may still be present Due to the previous pandemic, and the use of personal protective equipment (PPE) This may decrease voice recognition accuracy Inadvertent surveillance investigator errors may occur 04/30/2024 Chronic obstructive asthma [...] minimum of 6 months The most recent [place] [employer] of clinical endocrinologists and [place] [employer] of endocrinology guidelines recommend patients who [...] track activity level. Consider using apps like Tragara, Moment.Uspal, lose it, stick as needed for self-monitoring and weight management. Consider group exercises. Consider hiring a personal property appraiser. Regular exercise is harrison to sustainable health [...] counseling and psychiatry and Dr Peacock at [employer]. We would like to cover regular topics [...] software and direct typing Please excuse inadvertent surveillance investigator or typing errors, or uncorrected word substitutions Although every attempt has been made by the provider to proofread this document, occasional misspellings and typographical errors may still be present Due to the previous pandemic, and the use of personal protective equipment (PPE) This may decrease voice recognition accuracy Inadvertent surveillance investigator errors may occur 11/26/2024 Chronic obstructive asthma (ICD-10 - J44.89) #Weight Management 11/26/2024 Increase to 15 mg Lipids and TSH will be ordered Other labs reviewed Total time spent today was 30 minutes of which greater than 50% was spent on coordinating and counseling Patient has been found to be obese with a BMI of (31). Patient has class (1) obesity. We are a board certified obesity and weight management practice Patient has trialed behavioral modification, dietary restrictions and exercise for a minimum of 6 months Of note, some information is being carried forward from prior records for informational purposes only and is being cited so that efficiency, safety and quality of the patient's care is not compromised This note was prepared using voice recognition software and direct typing Please excuse inadvertent surveillance investigator or typing errors, or uncorrected word substitutions Although every attempt has been made by the provider to proofread this document, occasional misspellings and typographical errors may still be present Due to the previous pandemic, and the use of personal protective equipment (PPE) This may decrease voice recognition accuracy Inadvertent surveillance investigator errors may occur 01/17/2025 Chronic obstructive asthma (ICD-10 - J44.89) #Weight Management 01/17/2025 Thriving and improving body composition analysis Continue current 15 mg dosing Please update your labs prior to next visit Total time spent today was 30 minutes of which greater than 50% was spent on coordinating and counseling Patient has been found to be obese with a BMI of (30). Patient has class (1) obesity. We are a board certified obesity and weight management practice Patient has trialed behavioral modification, dietary restrictions and exercise for a minimum of 6 months Of note, some information is being carried forward from prior records for informational purposes only and is being cited so that efficiency, safety and quality of the patient's care is not compromised This note was prepared using voice recognition software and direct typing Please excuse inadvertent surveillance investigator or typing errors, or uncorrected word substitutions Although every attempt has been made by the provider to proofread this document, occasional misspellings and typographical errors may still be present Due to the previous pandemic, and the use of personal protective equipment (PPE) This may decrease voice recognition accuracy Inadvertent surveillance investigator errors may occur 01/17/2025 Encounter for examination of blood pressure without abnormal findings (ICD-10 - Z01.30) #Weight Management 01/17/2025 Thriving and improving body composition analysis Continue current 15 mg dosing Please update your labs prior to next visit Total time spent today was 30 minutes of which greater than 50% was spent on coordinating and counseling Patient has been found to be obese with a BMI of (30). Patient has class (1) obesity. We are a board certified obesity and weight management practice Patient has trialed behavioral modification, dietary restrictions and exercise for a minimum of 6 months Of note, some information is being carried forward from prior records for informational purposes only and is being cited so that efficiency, safety and quality of the patient's care is not compromised This note was prepared using voice recognition software and direct typing Please excuse inadvertent surveillance investigator or typing errors, or uncorrected word substitutions Although every attempt has been made by the provider to proofread this document, occasional misspellings and typographical errors may still be present Due to the previous pandemic, and the use of personal protective equipment (PPE) This may decrease voice recognition accuracy Inadvertent surveillance investigator errors may occur Plan Of Treatment Pending Test Test Name Order Date LIPID PANEL, STANDARD 11/26/2024 TSH W/REFLEX TO FT4 11/26/2024 Next Appt Details Provider Name:MANISHA BLUM, 03/04/2025 09:30:00 AM, [address], [facility], [place], [address], Insurance Providers Payer Name Payer Address Payer Phone Subscriber Number Group Number Insured Name Patient Relationship to Insured Coverage Start Date Coverage End Date [facility] [address] [place] [address] [phone] [id number] Gabriela Hoskins Self - patient is the insured 3 Medical (General) History Surgical History Surgery Date(Month/Year) C section 02/28/2007 cholecystectomy
[2025-02-14 08:52] LABS: Cholesterol 166 mg/dL (<200); HDL Cholesterol 59 mg/dL (>40); Triglycerides 58 mg/dL (<150)
== END 2025-02-14 07:47 | disposition home or self-care (01) ==
LOC: HO.LAB 07:46
PROVIDERS: PCP Physician Assistant; Visit Provider Nurse Practitioner Acute Care
DX: Z13.220 Encounter for screening for lipoid disorders (principal); Z13.29 Encounter for screening for other suspected endocrine disorder
CPT/HCPCS: 36415; 80061; 84443

== ENCOUNTER 2025-03-18 15:14 | Outpatient (REF) | payer BC, SELFPAY ==
[2025-03-20 01:18] LABS: Follicle Stimulating Hormone 31.6 mIU/mL
== END 2025-03-18 15:15 | disposition home or self-care (01) ==
LOC: HO.LAB 15:14
PROVIDERS: PCP Physician Assistant; Visit Provider Advanced Practice Midwife
DX: Z01.419 Encounter for gynecological examination (general) (routine) without abnormal findings (principal); R23.2 Flushing
CPT/HCPCS: 36415; 83001; 83002

== ENCOUNTER 2025-03-18 15:14 | Outpatient (AMB) | payer BC, SELFPAY ==
--- NOTE | 2025-03-18 15:21 | MHC.OFFVIS ---
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 Equipment Tester concerns: menses skipped x2 this year. Currently sexually active, admits to vaginal dryness, previous hot flashes. Eating a healthy diet with calcium and vitamin D and stays active with exercise. Last pap smear; 2021, negative. Last mammogram; 2024. Colonoscopy is UTD. Denies any family history of breast, ovarian or colon cancer. [facility] Medical History Hot flashes Obesity (BMI 30-39.9) Asthma Surgical History Previous section S/P cholecystectomy Family History Father Hairy cell leukemia Social History Household Members: Spouse and Children Housing: House Are you a primary hearing care professional to a significant other at home: No Do you presently have visiting nurse or other home services: No Alcohol intake: current Alcohol intake frequency: a few times a week Alcohol type: wine Patient Tobacco Use Status: Never used Tobacco e-Cigarette/Vaping Use: Never Used Second Hand Smoke Exposure: No service: No Current occupational status: employed Current occupation: [employer] Sexual orientation: Straight/Heterosexual Gender identity: Female Cognitive needs: No Hearing needs: No Vision needs: No Female Reproductive History Menstrual Age of Menarche: 13 Duration of menses: 3-5 days Date of last menstrual period: 02/11/25 control method: none Total pregnancies: 4 Full term: 2 Date of last pap smear: 08/22/21 (negative pap smear, negative hpv ) Date of Mammogram: 10/22/24 (bi rad 1) Review of Systems Const All systems reviewed & are unremarkable except as noted in HPI and below Reports as per HPI Eyes Reports no additional complaints ENT Reports no additional complaints Card Reports no additional complaints Resp Reports no additional complaints GI Reports as per HPI and Reports no additional complaints Reports as per HPI Musc Reports no additional complaints Skin/Breast Reports as per HPI Neuro Reports no additional complaints Psych Reports no additional complaints Endo Reports no additional complaints Gerard/Lymph Reports no additional complaints Aller/Immun Reports no additional complaints Physical Exam Const General: cooperative, healthy appearing, no acute distress, well developed and alert Orientation/consciousness: patient oriented x3 HEENT Head: Yes normal to inspection Eyes General: appearance normal, both eyes and all related structures Neck Neck: Yes normal visual inspection Thyroid: Thyroid normal Chest Chest palpation & inspection: normal inspection of the chest and other (no puckering, dimpling, peau de orange, retraction, discharge, masses) Breast/axilla inspection: normal inspection of the breasts Breast/axilla palpation: normal palpation of the breasts Resp Effort & Inspection: normal respiratory effort GI Inspection: Yes normal to inspection Palpation (GI): Soft to palpation Rectal Exam - Female: deferred General: Yes bladder normal to palpation External Female Exam: normal external appearance and normal appearance of the urethra Speculum Exam - Vagina: normal appearance of the vagina, normal palpation and normal vaginal discharge Speculum Exam - Cervix: normal appearance of the cervix and normal palpation Bimanual exam- vagina & uterus: normal bimanual exam, normal palpation, uterine size normal, bladder normal to palpation, normal palpation and non-tender Bimanual Exam- Adnexa, other: no masses Skin General skin exam: no rashes or lesions noted Rashes: no rashes Neuro General: patient oriented x3 Cognition (Neuro): normal cognition Extrem General: Yes normal to inspection Psych Attitude: cooperative Thought process: Normal thought process present Assessment & Plan Assessment & Plan (1) Encounter for well woman exam with routine gynecological exam: Code(s): Z01.419 - Encounter for gynecological examination (general) (routine) without abnormal findings Category: Medical Plan Discussed: Current recommendations for pap smears per ASCCP guidelines. Breast awareness, periodic self breast exams and yearly mammogram. Maintain a healthy lifestyle, well balanced diet including Calcium 1,200 mg and Vitamin D 600 IU daily, and routine exercise. Menopause verses perimenopause. Menopause is definitive of 1 year of no menses or 12 months in succession. Report any abnormal uterine bleeding in example prolonged episodes, or short intervals less than 24 days. Follow up pending blood work. Patient verbalizes understanding and agrees to the plan of care. She was given opportunity to ask questions and all questions were answered to the best of my ability. RTO in 1 year for annual food production supervisor exam. This note is constructed using voice recognition software. While every effort has been made to ensure accuracy, teller manager errors may have been included. Orders: Orders Follicle Stimulating Hormone Today R23.2 - [place] Lutenizing Hormone Today R23.2 - [place] Coding Level of Care Code Est Pt Prev Care 40-64y(56020) Diagnoses Encounter for well woman exam with routine gynecological exam Z01.419
[2025-03-18 15:27] VITALS: BP 116/72; BMI 31.1
--- OUTSIDE RECORDS SUMMARY | 2025-03-18 16:06 | XMS_ITS | Patient Health Record ---
Author Organization [facility] [address] Address [address] [place] [address] Care Team Providers Care Automatic Typewriter Inspector Name Role Phone MANISHA BLUM Unavailable [phone] MOSES FUENTES Unavailable [phone] Allergies No Known Allergies Reason For Referral No Information Medications Medication SIG (Take, Route, Frequency, Duration) Notes Start Date End Date Status Zepbound 12.5 MG/0.5ML Inject 12.5 mg Subcutaneous once weekly; Duration: 28 days 04/30/2024 Not-Taking Zepbound 15 MG/0.5ML 15mg Subcutaneous w eekly; Duration: 30 days Active Metoprolol Succinate 25 MG 1 capsule Orally Once a day Not-Taking Serevent Diskus 50 MCG/ACT 1 puff Inhalation Twice a day Active Mounjaro 15 MG/0.5ML 15mg Subcutaneous w eekly; Duration: 28 days 03/04/2025 Active Pulmicort Flexhaler 90 MCG/ACT 1 puff Inhalation Twice a day Active Problems Problem Type SNOMED Code ICD Code Onset Dates Problem Status W/U Status Risk Notes Problem Obesity due to excess calories (002928543) Other obesity due to excess calories (E66.09) Active confirmed Problem Mild intermittent asthma (251055726) Mild intermittent asthma, uncomplicated (J45.20) Active confirmed Problem Lipid screening (056149837) Encounter for screening for lipoid disorders (Z13.220) Active confirmed Problem Obese class II (245825916200666 ) BMI 35.0-35.9,adult (Z68.35) Active confirmed Problem Body mass index 30.00 to 34.99 (853928264769696 ) BMI 31.0-31.9,adult (Z68.31) Active confirmed Problem Body mass index 30+ - obesity (919194367) BMI 30.0-30.9,adult (Z68.30) Active confirmed Problem Adult-onset obesity (505043305) Adult-onset obesity (E66.9) Active confirmed Problem Endocrine/metabo lic screening (195435675) Encounter for screening for endocrine disorder (Z13.29) Active confirmed Problem Chronic obstructive asthma co-occurrent with acute exacerbation of asthma (disorder) (172006476009510 02) Chronic obstructive asthma (J44.89) Active confirmed Vital Signs Heart Rate 73 /min 03/04/2025 Oximetry 98 % 03/04/2025 Blood pressure diastolic 82 mm Hg 03/04/2025 Height 62 in 03/04/2025 Blood pressure systolic 122 mm Hg 03/04/2025 Weight 182.9 lbs 03/04/2025 BMI 33.45 kg/m2 03/04/2025 Encounters Encounter Location Date Provider Diagnosis [facility] [address] 04/30/2024 MANISHA MELGART Other obesity due to excess calories E66.09 ; BMI 35.0-35.9,adult Z68.35 ; Dietary counseling and surveillance Z71.3 and Chronic obstructive asthma J44.89 [facility] [address] 05/28/2024 MOSES FUENTES Adult-onset obesity E66.9 ; BMI 36.0-36.9,adult Z68.36 and Mild intermittent asthma, uncomplicated J45.20 [facility] [address] [address] 07/23/2024 MOSES FUENTES BMI 35.0-35.9,adult Z68.35 ; Adult-onset obesity E66.9 and Mild intermittent asthma, uncomplicated J45.20 [facility] [address] 11/26/2024 MANSIHA BORHOT Other obesity due to excess calories E66.09 ; BMI 31.0-31.9,adult Z68.31 ; Dietary counseling and surveillance Z71.3 and Chronic obstructive asthma J44.89 [facility] [address] [address] 01/17/2025 MANISHA BORHOT Other obesity due to excess calories E66.09 ; BMI 30.0-30.9,adult Z68.30 ; Dietary counseling and surveillance Z71.3 ; Chronic obstructive asthma J44.89 and Encounter for examination of blood pressure without abnormal findings Z01.30 [facility] [address] [address] 03/04/2025 MANISHA BLUM Other obesity due to excess calories E66.09 ; BMI 30.0-30.9,adult Z68.30 ; Dietary counseling and surveillance Z71.3 ; Chronic obstructive asthma J44.89 and Encounter for examination of blood pressure without abnormal findings Z01.30 [facility] [address] [address] 08/21/2024 MANISHA MELGART [facility] [address] [address] 01/22/2025 MANISHA BLUM Other obesity due to excess calories E66.09 [facility] [address] [phone] 03/25/2024 MANISHA MINAHOT [facility] [address] [address] 04/26/2024 MANISHA MINAHOT [facility] [address] [address] 04/26/2024 MANISHA MELGART [facility] [address] [address] 03/06/2025 MANISHA MELGART Adult-onset obesity E66.9 [facility] [address] [address] 03/07/2025 MANISHA MINAHOT Adult-onset obesity E66.9 and Other obesity due to excess calories E66.09 Assessments Encounter Date Diagnosis (ICD Code) Assessment Notes Treatment Notes Treatment Clinical Notes Section Notes 04/30/2024 Other obesity due to excess calories [...] minimum of 6 months The most recent [place] [employer] of clinical endocrinologists and [place] [employer] of endocrinology guidelines recommend patients who [...] track activity level. Consider using apps like [employer], [employer], lose it, stick as needed for self-monitoring and weight management. Consider group exercises. Consider hiring a personal injury legal assistant. Regular exercise is harrison to sustainable health [...] counseling and psychiatry and Dr Peacock at [facility]. We would like to cover regular topics [...] software and direct typing Please excuse inadvertent geophysical computer or typing errors, or uncorrected word substitutions Although every attempt has been made by the provider to proofread this document, occasional misspellings and typographical errors may still be present Due to the previous pandemic, and the use of personal protective equipment (PPE) This may decrease voice recognition accuracy Inadvertent geophysical computer errors may occur 04/30/2024 BMI 35.0-35.9,adult (ICD-10 [...] minimum of 6 months The most recent [place] [employer] of clinical endocrinologists and [place] [employer] endocrinology guidelines recommend patients who [...] track activity level. Consider using apps like [employer], [employer]pal, lose it, stick as needed for self-monitoring and weight management. Consider group exercises. Consider hiring a personal injury legal assistant. Regular exercise is harrison to sustainable health [...] counseling and psychiatry and Dr Peacock at [facility]. We would like to cover regular topics [...] software and direct typing Please excuse inadvertent geophysical computer or typing errors, or uncorrected word substitutions Although every attempt has been made by the provider to proofread this document, occasional misspellings and typographical errors may still be present Due to the previous pandemic, and the use of personal protective equipment (PPE) This may decrease voice recognition accuracy Inadvertent geophysical computer errors may occur 05/28/2024 BMI 36.0-36.9,adult (ICD-10 [...] Dictation was accomplished with the use of [employer] voice recognition software, which is prone to [...] Dictation was accomplished with the use of [employer] voice recognition software, which is prone to [...] resistance training through use of apps like [employer]. Total time spent with 30 minutes with [...] Dictation was accomplished with the use of [employer] voice recognition software, which is prone to [...] software and direct typing Please excuse inadvertent geophysical computer or typing errors, or uncorrected word substitutions Although every attempt has been made by the provider to proofread this document, occasional misspellings and typographical errors may still be present Due to the previous pandemic, and the use of personal protective equipment (PPE) This may decrease voice recognition accuracy Inadvertent geophysical computer errors may occur 11/26/2024 BMI 31.0-31.9,adult (ICD-10 [...] software and direct typing Please excuse inadvertent geophysical computer or typing errors, or uncorrected word substitutions Although every attempt has been made by the provider to proofread this document, occasional misspellings and typographical errors may still be present Due to the previous pandemic, and the use of personal protective equipment (PPE) This may decrease voice recognition accuracy Inadvertent geophysical computer errors may occur 01/17/2025 Other obesity due [...] software and direct typing Please excuse inadvertent geophysical computer or typing errors, or uncorrected word substitutions Although every attempt has been made by the provider to proofread this document, occasional misspellings and typographical errors may still be present Due to the previous pandemic, and the use of personal protective equipment (PPE) This may decrease voice recognition accuracy Inadvertent geophysical computer errors may occur 01/17/2025 BMI 30.0-30.9,adult (ICD-10 [...] software and direct typing Please excuse inadvertent geophysical computer or typing errors, or uncorrected word substitutions Although every attempt has been made by the provider to proofread this document, occasional misspellings and typographical errors may still be present Due to the previous pandemic, and the use of personal protective equipment (PPE) This may decrease voice recognition accuracy Inadvertent geophysical computer errors may occur 01/22/2025 Other obesity due to excess calories (ICD-10 - E66.09) 03/04/2025 Other obesity due to excess calories (ICD-10 - E66.09) #Weight Management 03/04/2025 Thriving and improving body composition analysis Continue current 15 mg dosing, Will try for Mounjaro if not transition to [facility] reviewed Total time spent today was 30 [...] software and direct typing Please excuse inadvertent geophysical computer or typing errors, or uncorrected word substitutions Although every attempt has been made by the provider to proofread this document, occasional misspellings and typographical errors may still be present Due to the previous pandemic, and the use of personal protective equipment (PPE) This may decrease voice recognition accuracy Inadvertent geophysical computer errors may occur 01/17/2025 Dietary counseling and surveillance (ICD-10 - [...] software and direct typing Please excuse inadvertent geophysical computer or typing errors, or uncorrected word substitutions Although every attempt has been made by the provider to proofread this document, occasional misspellings and typographical errors may still be present Due to the previous pandemic, and the use of personal protective equipment (PPE) This may decrease voice recognition accuracy Inadvertent geophysical computer errors may occur 03/04/2025 BMI 30.0-30.9,adult (ICD-10 - Z68.30) #Weight Management 03/04/2025 Thriving and improving body composition analysis Continue current 15 mg dosing, Will try for Mounjaro if not transition to [facility] reviewed Total time spent today was 30 [...] software and direct typing Please excuse inadvertent geophysical computer or typing errors, or uncorrected word substitutions Although every attempt has been made by the provider to proofread this document, occasional misspellings and typographical errors may still be present Due to the previous pandemic, and the use of personal protective equipment (PPE) This may decrease voice recognition accuracy Inadvertent geophysical computer errors may occur 03/06/2025 Adult-onset obesity (ICD-10 - E66.9) Electronic Prior Authorization was requested for Mounjaro 15 MG/0.5ML Solution Auto-injector. Provider can order medication once approval received. Electronic Prior Authorization was requested for Zepbound 15 MG/0.5ML Solution. Provider can order medication once approval received. 03/07/2025 Adult-onset obesity (ICD-10 - E66.9) Electronic Prior Authorization was requested for Wegovy 0.5 MG/0.5ML Solution Auto-injector. Provider can order medication once approval received. 11/26/2024 Dietary counseling and surveillance (ICD-10 - [...] software and direct typing Please excuse inadvertent geophysical computer or typing errors, or uncorrected word substitutions Although every attempt has been made by the provider to proofread this document, occasional misspellings and typographical errors may still be present Due to the previous pandemic, and the use of personal protective equipment (PPE) This may decrease voice recognition accuracy Inadvertent geophysical computer errors may occur 07/23/2024 Adult-onset obesity (ICD-10 [...] resistance training through use of apps like [employer]. Total time spent with 30 minutes with [...] Dictation was accomplished with the use of [employer] voice recognition software, which is prone to [...] resistance training through use of apps like [employer]. Total time spent with 30 minutes with [...] Dictation was accomplished with the use of [employer] voice recognition software, which is prone to [...] Dictation was accomplished with the use of [employer] voice recognition software, which is prone to [...] minimum of 6 months The most recent [place] [employer] of clinical endocrinologists and [place] [employer] of endocrinology guidelines recommend patients who [...] track activity level. Consider using apps like [employer], [employer]fitnesspal, lose it, stick as needed for self-monitoring and weight management. Consider group exercises. Consider hiring a personal injury legal assistant. Regular exercise is harrison to sustainable health [...] counseling and psychiatry and Dr Peacock at [facility]. We would like to cover regular topics [...] software and direct typing Please excuse inadvertent geophysical computer or typing errors, or uncorrected word substitutions Although every attempt has been made by the provider to proofread this document, occasional misspellings and typographical errors may still be present Due to the previous pandemic, and the use of personal protective equipment (PPE) This may decrease voice recognition accuracy Inadvertent geophysical computer errors may occur 04/30/2024 Chronic obstructive asthma [...] minimum of 6 months The most recent [place] Association of clinical endocrinologists and [place] [employer] of endocrinology guidelines recommend patients who [...] track activity level. Consider using apps like [employer], [employer], lose it, stick as needed for self-monitoring and weight management. Consider group exercises. Consider hiring a personal injury legal assistant. Regular exercise is harrison to sustainable health [...] counseling and psychiatry and Dr Peacock at [facility]. We would like to cover regular topics [...] software and direct typing Please excuse inadvertent geophysical computer or typing errors, or uncorrected word substitutions Although every attempt has been made by the provider to proofread this document, occasional misspellings and typographical errors may still be present Due to the previous pandemic, and the use of personal protective equipment (PPE) This may decrease voice recognition accuracy Inadvertent geophysical computer errors may occur 11/26/2024 Chronic obstructive asthma [...] software and direct typing Please excuse inadvertent geophysical computer or typing errors, or uncorrected word substitutions Although every attempt has been made by the provider to proofread this document, occasional misspellings and typographical errors may still be present Due to the previous pandemic, and the use of personal protective equipment (PPE) This may decrease voice recognition accuracy Inadvertent geophysical computer errors may occur 01/17/2025 Chronic obstructive asthma [...] software and direct typing Please excuse inadvertent geophysical computer or typing errors, or uncorrected word substitutions Although every attempt has been made by the provider to proofread this document, occasional misspellings and typographical errors may still be present Due to the previous pandemic, and the use of personal protective equipment (PPE) This may decrease voice recognition accuracy Inadvertent geophysical computer errors may occur 03/04/2025 Dietary counseling and surveillance (ICD-10 - Z71.3) #Weight Management 03/04/2025 Thriving and improving body composition analysis Continue current 15 mg dosing, Will try for Mounjaro if not transition to [facility] reviewed Total time spent today was 30 [...] software and direct typing Please excuse inadvertent geophysical computer or typing errors, or uncorrected word substitutions Although every attempt has been made by the provider to proofread this document, occasional misspellings and typographical errors may still be present Due to the previous pandemic, and the use of personal protective equipment (PPE) This may decrease voice recognition accuracy Inadvertent geophysical computer errors may occur 03/07/2025 Other obesity due to excess calories (ICD-10 - E66.09) 03/04/2025 Chronic obstructive asthma (ICD-10 - J44.89) #Weight Management 03/04/2025 Thriving and improving body composition analysis Continue current 15 mg dosing, Will try for Mounjaro if not transition to [facility] reviewed Total time spent today was 30 [...] software and direct typing Please excuse inadvertent geophysical computer or typing errors, or uncorrected word substitutions Although every attempt has been made by the provider to proofread this document, occasional misspellings and typographical errors may still be present Due to the previous pandemic, and the use of personal protective equipment (PPE) This may decrease voice recognition accuracy Inadvertent geophysical computer errors may occur 01/17/2025 Encounter for examination [...] software and direct typing Please excuse inadvertent geophysical computer or typing errors, or uncorrected word substitutions Although every attempt has been made by the provider to proofread this document, occasional misspellings and typographical errors may still be present Due to the previous pandemic, and the use of personal protective equipment (PPE) This may decrease voice recognition accuracy Inadvertent geophysical computer errors may occur 03/04/2025 Encounter for examination of blood pressure without abnormal findings (ICD-10 - Z01.30) #Weight Management 03/04/2025 Thriving and improving body composition analysis Continue current 15 mg dosing, Will try for Mounjaro if not transition to [facility] reviewed Total time spent today was 30 [...] software and direct typing Please excuse inadvertent geophysical computer or typing errors, or uncorrected word substitutions Although every attempt has been made by the provider to proofread this document, occasional misspellings and typographical errors may still be present Due to the previous pandemic, and the use of personal protective equipment (PPE) This may decrease voice recognition accuracy Inadvertent geophysical computer errors may occur 03/04/2025 #Weight Management 03/04/2025 Thriving and improving body composition analysis Continue [...] software and direct typing Please excuse inadvertent geophysical computer or typing errors, or uncorrected word substitutions Although every attempt has been made by the provider to proofread this document, occasional misspellings and typographical errors may still be present Due to the previous pandemic, and the use of personal protective equipment (PPE) This may decrease voice recognition accuracy Inadvertent geophysical computer errors may occur Plan Of Treatment Pending Test Test Name Order Date LIPID PANEL, STANDARD 11/26/2024 TSH W/REFLEX TO FT4 11/26/2024 Insurance Providers Payer Name Payer Address Payer Phone Subscriber Number Group Number Insured Name Patient Relationship to Insured Coverage Start Date Coverage End Date [facility] [address] [place] [address] [phone] [id number] Gato Gabriela Self - patient is the insured 3 Medical (General) History Surgical History Surgery Date(Month/Year) C section 02/28/2007 cholecystectomy
== END 2025-03-18 15:52 | disposition home or self-care (01) ==
LOC: HO.HWS 15:15
PROVIDERS: PCP Physician Assistant; Visit Provider Advanced Practice Midwife
DX: Z01.419 Encounter for gynecological examination (general) (routine) without abnormal findings (principal)
CPT/HCPCS: 99396; 99459